=== PATIENT | male | born 1935 | race Two or more races ===

== ENCOUNTER 2021-05-16 12:08 | Inpatient (IN) | payer MEDICARE ==
[2021-05-16] MEDS ORDERED: SODIUM CHLORIDE 0.9% 500 ML 500 ML IV STA (12:48)
--- NOTE | 2021-05-16 13:03 | ED ---
General Adult HPI - General Chief complaint: Weakness Stated complaint: Weakness,Loss of appetite Time Seen by Provider: 05/16/21 12:20 Source: patient, RN notes reviewed, old records reviewed Mode of arrival: wheelchair Limitations: no limitations - History of Present Illness Initial comments: This is an 85-year-old male who presents emergency department stating that over the last 2 weeks she's becoming more and more fatigued and weaker and weaker. states she's been losing weight for about a month now. Patient's conduit primary medical care doctor and was told is liver enzymes are elevated as was his white count. Patient was put on Zithromax but he doesn't know what for. Patient continues to be weak so he came to the emergency department. Patient denies any fever chills or cough. Patient denies chest pain difficulty breathing shortness of breath per patient denies abdominal pain patient denies nausea vomiting diarrhea. Patient has history of high blood pressure. Patient states he did have a heart attack years ago and has a stent. Patient denies diabetes. She hasn't smoked in many years. - Related Data Home Medications Medication Instructions Recorded Confirmed Aspirin EC [Ecotrin Low Dose] 81 mg PO DAILY 05/16/21 05/16/21 Azithromycin [Zithromax Z-pack (6 See Taper PO DAILY 05/16/21 05/16/21 tabs)] Donepezil [Aricept] 5 mg PO BID 05/16/21 05/16/21 Enalapril/Hydrochlorothiazide 1 tab PO DAILY 05/16/21 05/16/21 [Enalapril/Hydrochlorothiazide 10-25 mg Tablet] Fluticasone Propion/Salmeterol 1 puff INHALATION RT-DAILY 05/16/21 05/16/21 [Wixela 250-50 Inhub] Memantine [Namenda] 10 mg PO BID 05/16/21 05/16/21 Montelukast [Singulair] 10 mg PO DAILY 05/16/21 05/16/21 Nitroglycerin Sl Tabs [Nitrostat] 0.4 mg SUBLINGUAL Q5M PRN 05/16/21 05/16/21 Simvastatin [Zocor] 40 mg PO HS 05/16/21 05/16/21 Vit C/E/Zn/Coppr/Lutein/Zeaxan 1 cap PO BID 05/16/21 05/16/21 [Preservision Areds 2 Softgel] Zolpidem [Ambien] 5 mg PO HS PRN 05/16/21 05/16/21 Allergies Allergy/AdvReac Type Severity Reaction Status Date / Time No Known Allergies Allergy Verified 05/16/21 13:16 Review of Systems ROS Statement: Those systems with pertinent positive or pertinent negative responses have been documented in the HPI. ROS Other: All systems not noted in ROS Statement are negative. Past Medical History Past Medical History: Asthma, Hyperlipidemia, Hypertension, Myocardial Infarction ([place]) History of Any Multi-Drug Resistant Organisms: None Reported Past Surgical History: Heart Catheterization With Stent, Joint Replacement Past Psychological History: No Psychological Hx Reported Smoking Status: Never smoker Past Alcohol Use History: Occasional Past Drug Use History: None Reported General Exam - General Exam Comments Initial Comments: GENERAL: Patient is well-developed and well-nourished. Patient is nontoxic and well- hydrated and is in no acute distress. ENT: Neck is soft and supple. No significant lymphadenopathy is noted. Oropharynx is clear. Moist mucous membranes. Neck has full range of motion without eliciting any pain. EYES: The sclera were anicteric and conjunctiva were pink and moist. Extraocular movements were intact and pupils were equal round and reactive to light. E yelids were unremarkable. PULMONARY: Unlabored respirations. Good breath sounds bilaterally. No audible rales rhonchi or wheezing was noted. CARDIOVASCULAR: There is a regular rate and rhythm without any murmurs gallops or rubs. ABDOMEN: Soft and nontender with normal bowel sounds. SKIN: Skin is clear with no lesions or rashes and otherwise unremarkable. NEUROLOGIC: Patient is alert and oriented x3. Cranial nerves II through XII are grossly intact. Motor and sensory are also intact. Normal speech, volume and content. Symmetrical smile. MUSCULOSKELETAL: Normal extremities with adequate strength and full range of motion. LYMPHATICS: No significant lymphadenopathy is noted PSYCHIATRIC: Normal psychiatric evaluation. Limitations: no limitations Course Vital Signs 05/16/21 05/16/21 05/16/21 12:22 12:47 13:00 Temperature 100.8 F H Pulse Rate 84 Respiratory 18 Rate Blood Pressure 121/63 127/87 127/87 O2 Sat by Pulse 95 90 L Oximetry 05/16/21 05/16/21 05/16/21 13:30 14:00 14:30 Temperature Pulse Rate Respiratory Rate Blood Pressure 127/87 126/65 125/60 O2 Sat by Pulse 97 94 L 93 L Oximetry Medical Decision Making - Medical Decision Making EKG shows a sinus rhythm at 81 bpm NM interval is 214 QRS is 136 QT interval 420 QTC is 487. Patient's EKG shows right bundle-branch block. Chest x-ray shows no acute abnormality. Computed tomography scan of the abdomen shows an umbilical hernia. Antibiotics were started on the patient so no source of infection could be determined. Spoke with Dr. Anderson he agreed to admit the patient admitted the patient I wrote admitting orders to continue fluids I consulted infectious disease as well as hematology. - Lab Data Result diagrams: 05/16/21 13:07 05/16/21 13:07 Lab Results 05/16/21 05/16/21 05/16/21 Range/Units 13:07 13:07 13:07 WBC 22.9 H (3.8-10.6) k/uL RBC 3.65 L (4.30-5.90) m/uL Hgb 11.1 L (13.0-17.5) gm/dL Hct 34.2 L (39.0-53.0) % MCV 93.7 (80.0-100.0) fL MCH 30.3 (25.0-35.0) pg MCHC 32.4 (31.0-37.0) g/dL RDW 12.4 (11.5-15.5) % Plt Count 395 (150-450) k/uL MPV 8.7 Neutrophils % 90 % Lymphocytes % 3 % Monocytes % 5 % Eosinophils % 2 % Basophils % 0 % Neutrophils # 20.6 H (1.3-7.7) k/uL Lymphocytes # 0.6 L (1.0-4.8) k/uL Monocytes # 1.1 H (0-1.0) k/uL Eosinophils # 0.4 (0-0.7) k/uL Basophils # 0.1 (0-0.2) k/uL PT 11.1 (9.0-12.0) sec INR 1.0 (<1.2) APTT 24.2 (22.0-30.0) sec Sodium (137-145) mmol/L Potassium (3.5-5.1) mmol/L Chloride (98-107) mmol/L Carbon Dioxide (22-30) mmol/L Anion Gap mmol/L BUN (9-20) mg/dL Creatinine (0.66-1.25) mg/dL Est GFR (CKD-EPI)AfAm (>60 ml/min/1.73 sqM) Est GFR (CKD-EPI)NonAf (>60 ml/min/1.73 sqM) Glucose (74-99) mg/dL Lactic Ac Sepsis Rflx Plasma Lactic Acid Niraj (0.7-2.0) mmol/L Calcium (8.4-10.2) mg/dL Magnesium (1.6-2.3) mg/dL Total Bilirubin (0.2-1.3) mg/dL AST (17-59) U/L ALT (4-49) U/L Alkaline Phosphatase (38-126) U/L Troponin I (0.000-0.034) ng/mL Total Protein (6.3-8.2) g/dL Albumin (3.5-5.0) g/dL TSH (0.465-4.680) mIU/L Urine Color Yellow Urine Appearance Cloudy (Clear) Urine pH 5.5 (5.0-8.0) Ur Specific [place] 1.021 (1.001-1.035) Urine Protein 1+ H (Negative) Urine Glucose (UA) Negative (Negative) Urine Ketones Negative (Negative) Urine Blood Negative (Negative) Urine Nitrite Negative (Negative) Urine Bilirubin Negative (Negative) Urine Urobilinogen <2.0 (<2.0) mg/dL Ur Leukocyte Esterase Small H (Negative) Urine RBC 1 (0-5) /hpf Urine WBC 15 H (0-5) /hpf Ur Squamous Epith Cells <1 (0-4) /hpf Urine Bacteria Rare H (None) /hpf Cellular Casts 1 (0) /lpf Hyaline Casts 7 H (0-2) /lpf Granular Casts 1 (0) /lpf Urine Mucus Rare H (None) /hpf Coronavirus (PCR) (Not Detectd) 05/16/21 05/16/21 05/16/21 Range/Units 13:07 13:07 13:07 WBC (3.8-10.6) k/uL RBC (4.30-5.90) m/uL Hgb (13.0-17.5) gm/dL Hct (39.0-53.0) % MCV (80.0-100.0) fL MCH (25.0-35.0) pg MCHC (31.0-37.0) g/dL RDW (11.5-15.5) % Plt Count (150-450) k/uL MPV Neutrophils % % Lymphocytes % % Monocytes % % Eosinophils % % Basophils % % Neutrophils # (1.3-7.7) k/uL Lymphocytes # (1.0-4.8) k/uL Monocytes # (0-1.0) k/uL Eosinophils # (0-0.7) k/uL Basophils # (0-0.2) k/uL PT (9.0-12.0) sec INR (<1.2) APTT (22.0-30.0) sec Sodium 135 L (137-145) mmol/L Potassium 4.0 (3.5-5.1) mmol/L Chloride 102 (98-107) mmol/L Carbon Dioxide 21 L (22-30) mmol/L Anion Gap 12 mmol/L BUN 41 H (9-20) mg/dL Creatinine 1.41 H (0.66-1.25) mg/dL Est GFR (CKD-EPI)AfAm 53 (>60 ml/min/1.73 sqM) Est GFR (CKD-EPI)NonAf 46 (>60 ml/min/1.73 sqM) Glucose 162 H (74-99) mg/dL Lactic Ac Sepsis Rflx Plasma Lactic Acid Niraj 3.7 H* (0.7-2.0) mmol/L Calcium 9.0 (8.4-10.2) mg/dL Magnesium 2.2 (1.6-2.3) mg/dL Total Bilirubin 1.1 (0.2-1.3) mg/dL AST 156 H (17-59) U/L ALT 195 H (4-49) U/L Alkaline Phosphatase 208 H (38-126) U/L Troponin I <0.012 (0.000-0.034) ng/mL Total Protein 6.2 L (6.3-8.2) g/dL Albumin 3.1 L (3.5-5.0) g/dL TSH 0.898 (0.465-4.680) mIU/L Urine Color Urine Appearance (Clear) Urine pH (5.0-8.0) Ur Specific [place] (1.001-1.035) Urine Protein (Negative) Urine Glucose (UA) (Negative) Urine Ketones (Negative) Urine Blood (Negative) Urine Nitrite (Negative) Urine Bilirubin (Negative) Urine Urobilinogen (<2.0) mg/dL Ur Leukocyte Esterase (Negative) Urine RBC (0-5) /hpf Urine WBC (0-5) /hpf Ur Squamous Epith Cells (0-4) /hpf Urine Bacteria (None) /hpf Cellular Casts (0) /lpf Hyaline Casts (0-2) /lpf Granular Casts (0) /lpf Urine Mucus (None) /hpf Coronavirus (PCR) (Not Detectd) 05/16/21 05/16/21 Range/Units 13:08 13:54 WBC (3.8-10.6) k/uL RBC (4.30-5.90) m/uL Hgb (13.0-17.5) gm/dL Hct (39.0-53.0) % MCV (80.0-100.0) fL MCH (25.0-35.0) pg MCHC (31.0-37.0) g/dL RDW (11.5-15.5) % Plt Count (150-450) k/uL MPV Neutrophils % % Lymphocytes % % Monocytes % % Eosinophils % % Basophils % % Neutrophils # (1.3-7.7) k/uL Lymphocytes # (1.0-4.8) k/uL Monocytes # (0-1.0) k/uL Eosinophils # (0-0.7) k/uL Basophils # (0-0.2) k/uL PT (9.0-12.0) sec INR (<1.2) APTT (22.0-30.0) sec Sodium (137-145) mmol/L Potassium (3.5-5.1) mmol/L Chloride (98-107) mmol/L Carbon Dioxide (22-30) mmol/L Anion Gap mmol/L BUN (9-20) mg/dL Creatinine (0.66-1.25) mg/dL Est GFR (CKD-EPI)AfAm (>60 ml/min/1.73 sqM) Est GFR (CKD-EPI)NonAf (>60 ml/min/1.73 sqM) Glucose (74-99) mg/dL Lactic Ac Sepsis Rflx Y Plasma Lactic Acid Niraj (0.7-2.0) mmol/L Calcium (8.4-10.2) mg/dL Magnesium (1.6-2.3) mg/dL Total Bilirubin (0.2-1.3) mg/dL AST (17-59) U/L ALT (4-49) U/L Alkaline Phosphatase (38-126) U/L Troponin I (0.000-0.034) ng/mL Total Protein (6.3-8.2) g/dL Albumin (3.5-5.0) g/dL TSH (0.465-4.680) mIU/L Urine Color Urine Appearance (Clear) Urine pH (5.0-8.0) Ur Specific [place] (1.001-1.035) Urine Protein (Negative) Urine Glucose (UA) (Negative) Urine Ketones (Negative) Urine Blood (Negative) Urine Nitrite (Negative) Urine Bilirubin (Negative) Urine Urobilinogen (<2.0) mg/dL Ur Leukocyte Esterase (Negative) Urine RBC (0-5) /hpf Urine WBC (0-5) /hpf Ur Squamous Epith Cells (0-4) /hpf Urine Bacteria (None) /hpf Cellular Casts (0) /lpf Hyaline Casts (0-2) /lpf Granular Casts (0) /lpf Urine Mucus (None) /hpf Coronavirus (PCR) Not Detected (Not Detectd) Disposition Clinical Impression: Fatigue, Leukocytosis, Fever of unknown origin, Transaminitis, Weight loss Disposition: ADMITTED IP TO THIS HOSP Referrals: Gisselle Grimm DO [Primary Care Provider] - 1-2 days Time of Disposition: 15:53
[2021-05-16 13:27] LABS: Basophils # (A) 0.1 k/uL (0-0.2); Basophils % (A) 0 %; Eosinophils # (A) 0.4 k/uL (0-0.7); Eosinophils % (A) 2 %; HCT 34.2 % (39.0-53.0); HGB 11.1 gm/dL (13.0-17.5); Lymphocytes # (A) 0.6 k/uL (1.0-4.8); Lymphocytes % (A) 3 %; MCH 30.3 pg (25.0-35.0); MCHC 32.4 g/dL (31.0-37.0); MCV 93.7 fL (80.0-100.0); Mean Platelet Volume 8.7; Monocytes # (A) 1.1 k/uL (0-1.0); Monocytes % (A) 5 %; Neutrophils # (A) 20.6 k/uL (1.3-7.7); Neutrophils % (A) 90 %; Platelet Count 395 k/uL (150-450); RBC 3.65 m/uL (4.30-5.90); RDW 12.4 % (11.5-15.5); WBC 22.9 k/uL (3.8-10.6)
--- NOTE | 2021-05-16 13:31 | XR ---
EXAMINATION TYPE: XR chest 2V DATE OF EXAM: 05/16/2021 COMPARISON: NONE HISTORY: Weakness. TECHNIQUE: Frontal and lateral views of the chest are obtained. FINDINGS: There is no focal air space opacity, pleural effusion, or pneumothorax seen. The cardiac silhouette size is within normal limits. The osseous structures are intact. Overlying EKG leads. IMPRESSION: No acute cardiopulmonary process.
[2021-05-16 13:37] LABS: Partial Thromboplastin Time 24.2 sec (22.0-30.0); Prothrombin Time 11.1 sec (9.0-12.0)
[2021-05-16 13:49] LABS: Albumin 3.1 g/dL (3.5-5.0); Magnesium 2.2 mg/dL (1.6-2.3); Total Bilirubin 1.1 mg/dL (0.2-1.3); Total Protein 6.2 g/dL (6.3-8.2)
[2021-05-16 13:52] LABS: Appearance,Urine Cloudy (Clear); Bacteria,Urine Rare /hpf; Bilirubin,Urine Negative (Negative); Blood,Urine Negative (Negative); Cellular Casts,Urine 1 /lpf (0); Color,Urine Yellow; Glucose,Urine (UA) Negative (Negative); Granular Casts,Urine 1 /lpf (0); Hyaline Casts,Urine 7 /lpf (0-2); Ketones,Urine Negative (Negative); Leukocyte Esterase,Urine Small (Negative); Mucus,Urine Rare /hpf; Nitrite,Urine Negative (Negative); PH, Urine 5.5 (5.0-8.0); Protein,Urine 1+ (Negative); RBC,Urine 1 /hpf (0-5); Specific Gravity,Urine 1.021 (1.001-1.035); Squamous Epithelial Cell,Urine <1 /hpf (0-4); Urobilinogen,Urine <2.0 mg/dL (<2.0); WBC,Urine 15 /hpf (0-5)
[2021-05-16] MEDS ORDERED: IBUPROFEN 600 MG TAB PO STA (14:38)
--- NOTE | 2021-05-16 15:29 | CT ---
EXAMINATION TYPE: CT abdomen pelvis w con DATE OF EXAM: 05/16/2021 COMPARISON: NONE HISTORY: 85-year-old male Generalized abdominal pain with fever. TECHNIQUE: Contiguous axial scanning of the abdomen and pelvis following administration of 80 ml Isov ue 300 IV contrast. Delayed images through the kidneys and coronal/sagittal reconstructions performe d. CT DLP: 1290.9 mGycm Automated exposure control for dose reduction was used. FINDINGS: Heart normal size without pericardial effusion. Three-vessel coronary artery calcifications are prese nt. Lung bases clear without pleural effusion. No focal liver lesion or biliary ductal dilatation. Portal venous system is patent. Gallbladder, spleen, and pancreas within normal limits. Mild thickening of the bilateral adrenal glands without discrete nodularity. There is symmetric uptake of contrast from the kidneys but no excretion on delayed kidney images. 1 c m cortical hypodensity posterolateral mid right kidney too small for accurate CT characterization, li anthony cyst. Mild atherosclerotic calcifications infrarenal abdominal aorta and iliac arteries. No dilated small bowel, free fluid, or free air. No mesenteric or retroperitoneal lymphadenopathy. Mild stool burden. Left-sided colonic diverticulosis. Redundant sigmoid colon. No pericolonic inflamm atory change. There is a moderate-sized fat-containing umbilical hernia measuring 6.2 x 6.0 cm. Mild fat stranding is present here. The abdominal wall defect measures 2.3 cm wide. No abnormal fluid here. Mild to moderate circumference of bladder wall thickening. Prostate gland measures 4.9 cm wide. There is some nodular enhancement along the left posterior peripheral zone, axial image 82. Small pelvic p hleboliths. No abnormal fluid collection in the pelvis or pelvic lymphadenopathy. Bones: Moderate degenerative change of the hips. Degenerative bony ankylosis right SI joint. Advanced spondylotic changes throughout the lumbar spine. Addition the visualized lower thoracic spin e. IMPRESSION: 1. A MODERATE SIZED FAT-CONTAINING UMBILICAL HERNIA MEASURING 6.2 CM. THERE IS MILD FAT STRANDING WIT HIN THE HERNIA SAC THAT COULD REPRESENT PROMINENT OMENTAL/MESENTERIC VESSELS. MILD INFLAMMATION DIFFI CULT TO EXCLUDE. CORRELATE FOR ANY FOCAL PAIN HERE. 2. DELAYED EXCRETION OF CONTRAST FROM THE KIDNEYS. ASSESS FOR RUBY WITH BUN/CREATININE. 3. LEFT-SIDED COLONIC DIVERTICULOSIS WITHOUT ACUTE DIVERTICULITIS. 4. MILD TO MODERATE CIRCUMFERENTIAL BLADDER WALL THICKENING COULD REPRESENT CHRONIC BLADDER WALL HYPE RTROPHY VERSUS CYSTITIS. 5. THERE IS MILD PROSTATOMEGALY OF 4.9 CM WIDE. SOME NODULAR ENHANCEMENT IS SEEN ALONG THE LEFT POSTE RIOR PERIPHERAL ZONE THAT COULD RELATE TO CHANGES OF BPH. CORRELATE WITH PSA VALUES to exclude a smal l FOCUS OF PROSTATE CANCER. 6. CAD WITH 3 VESSEL CORONARY ARTERY CALCIFICATIONS.
[2021-05-16] MEDS ORDERED: SODIUM CHLORIDE 0.9% 1,000 ML IV ONE (15:54)
[2021-05-16] MEDS ORDERED: NITROGLYCERIN SL TABS 0.4 MG TAB SUBLINGUAL PRN (20:12)
[2021-05-16] MEDS ORDERED: IPRATROPIUM-ALBUTEROL 3 ML NEB INHALATION PRN (21:16)
--- NOTE | 2021-05-16 21:16 | P.HPIM ---
History of Present Illness H&P Date: 05/16/21 Chief Complaint: Generalized weakness Patient is a 85-year-old male with a known history of hypertension, hyperlipidemia, coronary artery disease history of stent placement, asthma, previous history of smoking and dementia/memory impairment was brought to the hospital by his . Patient was brought to the hospital due to generalized weakness fatigue and loss of weight for the past 2 weeks. As per his patient has been losing weight for about a month now. He was seen by his primary care physician and was found to have elevated liver enzymes and leukocytosis. Patient was started on empiric antibiotics in the form of Zithromax. Patient continues to be so he was brought to the hospital. Otherwise patient does not have any fever or chills. No cough or sputum production. No complaints of chest pain or shortness of breath. No abdominal pain. No nausea vomiting or diarrhea. Denies any loss of appetite. On admission T-max 100.2, blood pressure 121/63 pulse is 84 respiration 18 and pulse ox 95% on room air. Laboratory data showed WBC 22.9 hemoglobin 11.1 and platelets 325 lymphocytes 0.6 Coronavirus PCR not detected Sodium 135 potassium 4.0 chloride 102 bicarb is 21 BUN 41 and creatinine 1.41 lactic acid 3.7 AST 156 ALT 195 and alk phos 208 TSH 0.898 Urinalysis showed 1+ protein small leukocyte esterase and elevated WBCs. Chest x-ray showed no acute cardiopulmonary process CT of the abdomen pelvis showed moderate-sized fat-containing umbilical hernia measuring 6.2 cm there is mild fat stranding within the hernia sac that could represent prominent omental mesenteric vessels. Mild inflammation difficult to exclude. Delayed excretion of contrast from the kidneys. Left-sided colonic diverticulosis without acute diverticulitis. Mild to moderate circumferential bladder wall thickening could represent chronic bladder wall hypertrophy versus cystitis. There is prostatomegaly correlate her PSA level. EKG showed sinus rhythm with first-degree AV block. Review of Systems Review of systems could not be obtained from the patient. Past Medical History Past Medical History: Asthma, Hyperlipidemia, Hypertension, Myocardial Infarction ([place]) Last Myocardial Infarction Date:: 1999 History of Any Multi-Drug Resistant Organisms: None Reported Past Surgical History: Heart Catheterization With Stent, Joint Replacement Additional Past Surgical History / Comment(s): knee replacement, left wrist surgery 2019 Date of Last Stent Placement:: 1999 Past Psychological History: No Psychological Hx Reported Additional Psychological History / Comment(s): Memory impairment Smoking Status: Former smoker Past Alcohol Use History: Occasional Past Drug Use History: None Reported - Past Family History Father Family Medical History: Memory Impairment Mother Additional Family Medical History / Comment(s): Kidney cancer - at age 36 Medications and Allergies Home Medications Medication Instructions Recorded Confirmed Type Aspirin EC [Ecotrin Low Dose] 81 mg PO DAILY 05/16/21 05/16/21 History Azithromycin [Zithromax Z-pack (6 See Taper PO DAILY 05/16/21 05/16/21 History tabs)] Donepezil [Aricept] 5 mg PO BID 05/16/21 05/16/21 History Enalapril/Hydrochlorothiazide 1 tab PO DAILY 05/16/21 05/16/21 History [Enalapril/Hydrochlorothiazide 10-25 mg Tablet] Fluticasone Propion/Salmeterol 1 puff INHALATION RT-DAILY 05/16/21 05/16/21 History [Wixela 250-50 Inhub] Memantine [Namenda] 10 mg PO BID 05/16/21 05/16/21 History Montelukast [Singulair] 10 mg PO DAILY 05/16/21 05/16/21 History Nitroglycerin Sl Tabs [Nitrostat] 0.4 mg SUBLINGUAL Q5M PRN 05/16/21 05/16/21 History Simvastatin [Zocor] 40 mg PO HS 05/16/21 05/16/21 History Vit C/E/Zn/Coppr/Lutein/Zeaxan 1 cap PO BID 05/16/21 05/16/21 History [Preservision Areds 2 Softgel] Zolpidem [Ambien] 5 mg PO HS PRN 05/16/21 05/16/21 History Allergies Allergy/AdvReac Type Severity Reaction Status Date / Time No Known Allergies Allergy Verified 05/16/21 13:16 Physical Exam Vitals: Vital Signs Temp Pulse Pulse Resp BP BP BP 05/16/21 19:45 98.1 F 64 20 97/58 05/16/21 18:38 97.9 F 68 17 110/68 05/16/21 16:54 99.9 F H 82 17 115/60 05/16/21 15:58 100.2 F H 64 20 104/62 11/05/21 14:30 125/60 05/16/21 14:00 126/65 05/16/21 13:30 127/87 05/16/21 13:00 127/87 05/16/21 12:47 127/87 05/16/21 12:22 100.8 F H 84 18 121/63 Pulse Ox 05/16/21 19:45 98 05/16/21 18:38 98 05/16/21 16:54 94 L 05/16/21 15:58 96 05/16/21 14:30 93 L 05/16/21 14:00 94 L 05/16/21 13:30 97 05/16/21 13:00 05/16/21 12:47 90 L 05/16/21 12:22 95 Intake and Output 05/16/21 05/16/21 05/16/21 06:59 14:59 22:59 Other: Weight 94.801 kg 94.801 kg PHYSICAL EXAMINATION: Patient is lying in the bed comfortably, no acute distress, awake alert and oriented x1.. HEENT: Normocephalic. Neck is supple. Pupils reactive. Nostrils clear. Oral cavi ty is moist. Neck reveals no JVD, carotid bruits, or thyromegaly. CHEST EXAMINATION: Trachea is central. Symmetrical expansion. Bibasilar diminished sounds. No rhonchi or wheezing.. CARDIAC: Normal S1, S2 with no gallops. No murmurs ABDOMEN: Soft. Bowel sounds normal. No organomegaly. No abdominal bruits. Extremities: reveal no edema. No clubbing or cyanosis Neurologically awake, alert, oriented x1-2 ..Able to move extremities while in bed. No gross focal deficits noted Skin: No rash or skin lesions. Psychiatric: Cooperative. Musculoskeletal: No joint swelling or deformity. Normal range of motion. Results CBC & Chem 7: 05/16/21 13:07 05/16/21 13:07 Labs: Abnormal Lab Results - Last 24 Hours (Table) 05/16/21 05/16/21 05/16/21 Range/Units 13:07 13:07 13:07 WBC 22.9 H (3.8-10.6) k/uL RBC 3.65 L (4.30-5.90) m/uL Hgb 11.1 L (13.0-17.5) gm/dL Hct 34.2 L (39.0-53.0) % Neutrophils # 20.6 H (1.3-7.7) k/uL Lymphocytes # 0.6 L (1.0-4.8) k/uL Monocytes # 1.1 H (0-1.0) k/uL Sodium 135 L (137-145) mmol/L Carbon Dioxide 21 L (22-30) mmol/L BUN 41 H (9-20) mg/dL Creatinine 1.41 H (0.66-1.25) mg/dL Glucose 162 H (74-99) mg/dL Plasma Lactic Acid Niraj (0.7-2.0) mmol/L AST 156 H (17-59) U/L ALT 195 H (4-49) U/L Alkaline Phosphatase 208 H (38-126) U/L Total Protein 6.2 L (6.3-8.2) g/dL Albumin 3.1 L (3.5-5.0) g/dL Urine Protein 1+ H (Negative) Ur Leukocyte Esterase Small H (Negative) Urine WBC 15 H (0-5) /hpf Urine Bacteria Rare H (None) /hpf Hyaline Casts 7 H (0-2) /lpf Urine Mucus Rare H (None) /hpf 05/16/21 Range/Units 13:07 WBC (3.8-10.6) k/uL RBC (4.30-5.90) m/uL Hgb (13.0-17.5) gm/dL Hct (39.0-53.0) % Neutrophils # (1.3-7.7) k/uL Lymphocytes # (1.0-4.8) k/uL Monocytes # (0-1.0) k/uL Sodium (137-145) mmol/L Carbon Dioxide (22-30) mmol/L BUN (9-20) mg/dL Creatinine (0.66-1.25) mg/dL Glucose (74-99) mg/dL Plasma Lactic Acid Niraj 3.7 H* (0.7-2.0) mmol/L AST (17-59) U/L ALT (4-49) U/L Alkaline Phosphatase (38-126) U/L Total Protein (6.3-8.2) g/dL Albumin (3.5-5.0) g/dL Urine Protein (Negative) Ur Leukocyte Esterase (Negative) Urine WBC (0-5) /hpf Urine Bacteria (None) /hpf Hyaline Casts (0-2) /lpf Urine Mucus (None) /hpf Microbiology - Last 24 Hours (Table) 05/16/21 13:07 Urine Culture - Preliminary Urine,Clean Catch Thrombosis Risk Factor Assmnt - DVT/VTE Prophylaxis DVT/VTE Prophylaxis: Pharmacologic Prophylaxis ordered - Choose All That Apply Any of the Below Risk Factors Present?: Yes Each Risk Factor Represents 3 Points: Age 75 years or older Thrombosis Risk Factor Assessment Total Risk Factor Score: 3 Thrombosis Risk Factor Assessment Level: Moderate Risk Assessment and Plan Assessment: SIRS/leukocytosis, fever lactic acidosis without definite evidence of infection.. Possible acute urinary tract infection Generalized weakness fatigue and weight loss. Lactic acidosis likely due to dehydration volume depletion Acute kidney injury likely prerenal Hypovolemic hyponatremia Elevated liver enzymes Mild protein calorie malnutrition Hypertension Hyperlipidemia Coronary artery disease history of stent placement Hyperlipidemia History of [place] Previous history of smoking DVT prophylaxis with heparin subcu Plan: Patient will be continued on gentle IV hydration and antibiotics in the form of ceftriaxone. Follow-up urine culture and blood culture report. Follow-up inflammatory markers. COVID-19 test is negative. Continue with duo nebs and follow-up closely. ID and oncology was consulted. Prognosis guarded at this time. Time with Patient: Greater than 30
[2021-05-16] MEDS: MEMANTINE 10 MG TAB PO SCH (21:48)
[2021-05-16] MEDS: DONEPEZIL 5 MG TAB PO SCH (21:48)
[2021-05-16] MEDS: SODIUM CHLORIDE 0.9% 1,000 ML IV SCH (21:49)
[2021-05-16] MEDS: HEPARIN SODIUM,PORCINE/PF 5,000 UNIT/0.5 ML SYRINGE SQ SCH (21:50)
[2021-05-16] MEDS: FAMOTIDINE 20 MG/2 ML VIAL IV SCH (21:50)
[2021-05-17 07:17] LABS: Basophils # (A) 0.1 k/uL (0-0.2); Basophils % (A) 0 %; Eosinophils # (A) 0.8 k/uL (0-0.7); Eosinophils % (A) 5 %; HCT 31.7 % (39.0-53.0); HGB 10.2 gm/dL (13.0-17.5); Lymphocytes # (A) 1.3 k/uL (1.0-4.8); Lymphocytes % (A) 8 %; MCH 30.3 pg (25.0-35.0); MCHC 32.1 g/dL (31.0-37.0); MCV 94.3 fL (80.0-100.0); Monocytes % (A) 6 %; Neutrophils # (A) 12.9 k/uL (1.3-7.7); Neutrophils % (A) 80 %; Platelet Count 361 k/uL (150-450); RBC 3.36 m/uL (4.30-5.90); RDW 12.5 % (11.5-15.5); WBC 16.2 k/uL (3.8-10.6)
[2021-05-17] MEDS: SODIUM CHLORIDE 0.9% 1,000 ML IV SCH ×2 (09:21→18:07)
[2021-05-17] MEDS: ASPIRIN 81 MG PO SCH (09:21)
[2021-05-17] MEDS: MONTELUKAST 10 MG TAB PO SCH (09:21)
[2021-05-17] MEDS: MEMANTINE 10 MG TAB PO SCH ×2 (09:21→21:02)
[2021-05-17] MEDS: FAMOTIDINE 20 MG/2 ML VIAL IV SCH ×2 (09:22→21:19)
[2021-05-17] MEDS: DONEPEZIL 5 MG TAB PO SCH ×2 (09:22→21:02)
[2021-05-17] MEDS: HEPARIN SODIUM,PORCINE/PF 5,000 UNIT/0.5 ML SYRINGE SQ SCH ×2 (09:25→21:19)
[2021-05-17 11:22] LABS: Reticulocyte % 1.3 % (0.5-2.0)
--- NOTE | 2021-05-17 11:32 | P.CONS ---
History of Present Illness - Reason for Consult Consult date: 05/16/21 FUO Requesting physician: Kenny Carter - Chief Complaint weakness x few days - History of Present Illness History of present illness : Patient is 85-year-old male was brought into the ER this afternoon for evaluation of fatigue and the patient getting weaker and weaker apparently patient also losing weight patient has been evaluated by his primary care physician apparently was noticed to have elevated liver enzymes and white count at the patient has been treated with Zithromax however did not have any improvement subsequent the patient has been brought to the ER for further evaluation patient main symptom has been feeling weak and tired and did not have any energy patient denies having any chest pain shortness of breath minimal cough not bringing up any sputum no nausea no vomiting no abdominal pain or diarrhea on presentation to the hospital but did have a fever 100.8 F patient did have white count of 22.9 with a left shift BUN/creatinine was mildly elevated liver enzymes are mildly elevated urine was mildly positive dinero PCR was negative patient did have a chest x-ray which was negative for acute cardiopulmonary process patient also have a CT of abdominal pelvis did show some bladder wall thickening question of cystitis prostate was enlarged diverticulosis and umbilical hernia patient was started on Rocephin has been admitted to hospital infectious disease was consulted for further management Review of system: CONSTITUTIONAL: Positive for weakness along with the fever. EYES: No complaint. ENT: No complaint. RESPIRATORY: As per history of present illness. CARDIOVASCULAR: No complaint. GENITOURINARY as per history of present illness. GASTROINTESTINAL: No complaint. MUSCULOSKELETAL: No complaint. INTEGUMENTARY: No complaint. PSYCHOLOGIC: No complaint. ENDOCRINE: No complaint. NEUROLOGIC: No complaint. Past medical history : Reviewed, documented below Past surgical history : Reviewed, documented below Social history: Reviewed, documented below Medications: Reviewed, as documented below EXAMINATION: Vital sigans= Reviewed and documented below GENERAL DESCRIPTION: Elderly male lying in bed, no distress. No tachypnea or accessory muscle of respiration use. HEENT: Shows Pallor , no scleral icterus. Oral mucous membrane is dry. NECK: Trachea central, no thyromegaly. LUNGS: Unlabored breathing. Clear to auscultation anteriorly. No wheeze or crackle. HEART: S1, S2, regular rate and rhythm. ABDOMEN: Soft, no tenderness , guarding or rigidity EXTREMITIES: No edema of feet. SKIN: No rash, no masses palpable. NEUROLOGICAL: The patient is awake, alert, oriented x3, mood and affect normal. LABS AND RADIOLOGY: Reviewed results see below Assessment : Patient is 85-year-old male presenting to the hospital for weakness and did have a low-grade fever did have mildly positive UA abnormal CT abdominal pelvis with evidence of cystitis and did have enlarged prostate could be likely secondary to urinary source as currently do not have any other obvious focus of infection his lungs were clear to auscultation no evidence of any cellulitis and abdominal was soft Plan: 1-Rocephin 2 g IV bag daily 2-gentle IV fluid We will follow on clinical condition and cultures to further adjust medication if needed Thank you for this consultation we will follow the patient along with you Past Medical History Past Medical History: Asthma, Hyperlipidemia, Hypertension, Myocardial Infarction ([place]) History of Any Multi-Drug Resistant Organisms: None Reported Past Surgical History: Heart Catheterization With Stent, Joint Replacement Past Psychological History: No Psychological Hx Reported Smoking Status: Never smoker Past Alcohol Use History: Occasional Past Drug Use History: None Reported - Past Family History Father Family Medical History: Memory Impairment Mother Additional Family Medical History / Comment(s): Kidney cancer - at age 36 Medications and Allergies Home Medications Medication Instructions Recorded Confirmed Type Aspirin EC [Ecotrin Low Dose] 81 mg PO DAILY 05/16/21 05/16/21 History Azithromycin [Zithromax Z-pack (6 See Taper PO DAILY 05/16/21 05/16/21 History tabs)] Donepezil [Aricept] 5 mg PO BID 05/16/21 05/16/21 History Enalapril/Hydrochlorothiazide 1 tab PO DAILY 05/16/21 05/16/21 History [Enalapril/Hydrochlorothiazide 10-25 mg Tablet] Fluticasone Propion/Salmeterol 1 puff INHALATION RT-DAILY 05/16/21 05/16/21 History [Wixela 250-50 Inhub] Memantine [Namenda] 10 mg PO BID 05/16/21 05/16/21 History Montelukast [Singulair] 10 mg PO DAILY 05/16/21 05/16/21 History Nitroglycerin Sl Tabs [Nitrostat] 0.4 mg SUBLINGUAL Q5M PRN 05/16/21 05/16/21 History Simvastatin [Zocor] 40 mg PO HS 05/16/21 05/16/21 History Vit C/E/Zn/Coppr/Lutein/Zeaxan 1 cap PO BID 05/16/21 05/16/21 History [Preservision Areds 2 Softgel] Zolpidem [Ambien] 5 mg PO HS PRN 05/16/21 05/16/21 History Allergies Allergy/AdvReac Type Severity Reaction Status Date / Time No Known Allergies Allergy Verified 05/16/21 13:16 Physical Exam Vitals: Vital Signs Temp Pulse Resp BP Pulse Ox 05/16/21 15:58 100.2 F H 64 20 104/62 96 05/16/21 14:30 125/60 93 L 05/16/21 14:00 126/65 94 L 05/16/21 13:30 127/87 97 05/16/21 13:00 127/87 05/16/21 12:47 127/87 90 L 05/16/21 12:22 100.8 F H 84 18 121/63 95 Intake and Output 05/16/21 05/16/21 05/16/21 06:59 14:59 22:59 Other: Weight 94.801 kg Results CBC & Chem 7: 05/17/21 06:58 05/16/21 13:07 Labs: Abnormal Lab Results - Last 24 Hours (Table) 05/16/21 05/16/21 05/16/21 Range/Units 13:07 13:07 13:07 WBC 22.9 H (3.8-10.6) k/uL RBC 3.65 L (4.30-5.90) m/uL Hgb 11.1 L (13.0-17.5) gm/dL Hct 34.2 L (39.0-53.0) % Neutrophils # 20.6 H (1.3-7.7) k/uL Lymphocytes # 0.6 L (1.0-4.8) k/uL Monocytes # 1.1 H (0-1.0) k/uL Sodium 135 L (137-145) mmol/L Carbon Dioxide 21 L (22-30) mmol/L BUN 41 H (9-20) mg/dL Creatinine 1.41 H (0.66-1.25) mg/dL Glucose 162 H (74-99) mg/dL Plasma Lactic Acid Niraj (0.7-2.0) mmol/L AST 156 H (17-59) U/L ALT 195 H (4-49) U/L Alkaline Phosphatase 208 H (38-126) U/L Total Protein 6.2 L (6.3-8.2) g/dL Albumin 3.1 L (3.5-5.0) g/dL Urine Protein 1+ H (Negative) Ur Leukocyte Esterase Small H (Negative) Urine WBC 15 H (0-5) /hpf Urine Bacteria Rare H (None) /hpf Hyaline Casts 7 H (0-2) /lpf Urine Mucus Rare H (None) /hpf 05/16/21 Range/Units 13:07 WBC (3.8-10.6) k/uL RBC (4.30-5.90) m/uL Hgb (13.0-17.5) gm/dL Hct (39.0-53.0) % Neutrophils # (1.3-7.7) k/uL Lymphocytes # (1.0-4.8) k/uL Monocytes # (0-1.0) k/uL Sodium (137-145) mmol/L Carbon Dioxide (22-30) mmol/L BUN (9-20) mg/dL Creatinine (0.66-1.25) mg/dL Glucose (74-99) mg/dL Plasma Lactic Acid Niraj 3.7 H* (0.7-2.0) mmol/L AST (17-59) U/L ALT (4-49) U/L Alkaline Phosphatase (38-126) U/L Total Protein (6.3-8.2) g/dL Albumin (3.5-5.0) g/dL Urine Protein (Negative) Ur Leukocyte Esterase (Negative) Urine WBC (0-5) /hpf Urine Bacteria (None) /hpf Hyaline Casts (0-2) /lpf Urine Mucus (None) /hpf
[2021-05-17 11:48] VITALS: BMI 31.7
[2021-05-17 13:36] LABS: Hepatitis A Antibody IgM Nonreactive (Nonreactive); Hepatitis B Core IgM Nonreactive (Nonreactive); Hepatitis B Surface Antigen Nonreactive (Nonreactive); Hepatitis C IgG Antibody Nonreactive (Nonreactive)
[2021-05-17 15:32] LABS: African American GFR (CKD) 49.2 (60.0-200.0); Albumin 2.9 g/dL (3.8-4.9); Albumin/Globulin Ratio 1.21 (1.60-3.17); Anion Gap 13.5 mmol/L (4.00-12.00); BUN/Creat Ratio 26.07 Ratio (12.00-20.00); Blood Urea Nitrogen 39.1 mg/dL (9.0-27.0); Calcium 8.3 mg/dL (8.7-10.3); Carbon Dioxide 22.5 mmol/L (21.6-31.8); Globulin 2.4 g/dL (1.6-3.3); Non-African American GFR(CKD) 42.4 (60.0-200.0); Potassium 3.9 mmol/L (3.5-5.5); Total Bilirubin 0.3 mg/dL (0.30-1.20); Total Protein 5.3 g/dL (6.2-8.2)
[2021-05-17 19:15] LABS: % Iron Saturation 26.65 (15.00-50.00); Magnesium 2.3 mg/dL (1.5-2.4)
--- NOTE | 2021-05-17 19:18 | PN ---
PROGRESS NOTE DATE OF SERVICE: 05/17/2021 REASON FOR FOLLOWUP: Fever, possible urinary tract infection. INTERVAL HISTORY: The patient is afebrile today. The patient has been complaining of some irritation to the rectal area. He did have hard bowel movement. The patient denies having any chest pain. No shortness of breath or cough. No vomiting. No abdominal pain. PHYSICAL EXAMINATION: Blood pressure 129/72 with a pulse of 65, temperature 98.3. He is 95% on room air. General description is an elderly male lying in bed in no distress. Respiratory system: Unlabored breathing, decreased breath sounds at the base. No wheeze. Heart S1, S2. Regular rate and rhythm. Abdomen soft, no tenderness. LABS: Hemoglobin is 10.2, white count down to 16.2, creatinine is 1.5. Cultures are currently pending. DIAGNOSTIC IMPRESSION AND PLAN: Patient with fever, concerning for possible urinary tract infection versus cholangitis. Cultures are currently pending. Patient responding to the Rocephin that should continue while waiting for the culture to finalize and monitor clinical course closely. MMODL / IJN: [id number] /
[2021-05-17 21:20] LABS: Protein, Total 5.1 g/dL (6.2-8.2)
[2021-05-18] MEDS: SODIUM CHLORIDE 0.9% 1,000 ML IV SCH (01:19)
[2021-05-18] MEDS: MONTELUKAST 10 MG TAB PO SCH (07:56)
[2021-05-18] MEDS: HEPARIN SODIUM,PORCINE/PF 5,000 UNIT/0.5 ML SYRINGE SQ SCH ×2 (07:56→21:29)
[2021-05-18] MEDS: FAMOTIDINE 20 MG TAB PO SCH ×2 (07:56→21:28)
[2021-05-18] MEDS: ASPIRIN 81 MG PO SCH (07:56)
[2021-05-18] MEDS: DONEPEZIL 5 MG TAB PO SCH ×2 (07:57→21:29)
[2021-05-18] MEDS: MEMANTINE 10 MG TAB PO SCH ×2 (07:57→21:29)
[2021-05-18 10:57] LABS: Magnesium 2.2 mg/dL (1.5-2.4)
[2021-05-18 11:05] LABS: African American GFR (CKD) 58.5 (60.0-200.0); Albumin 2.8 g/dL (3.8-4.9); Albumin/Globulin Ratio 1.22 (1.60-3.17); Anion Gap 11.5 mmol/L (4.00-12.00); BUN/Creat Ratio 21.77 Ratio (12.00-20.00); Blood Urea Nitrogen 28.3 mg/dL (9.0-27.0); Calcium 8.4 mg/dL (8.7-10.3); Carbon Dioxide 22.5 mmol/L (21.6-31.8); Globulin 2.3 g/dL (1.6-3.3); Non-African American GFR(CKD) 50.5 (60.0-200.0); Potassium 4.5 mmol/L (3.5-5.5); Total Bilirubin 0.5 mg/dL (0.30-1.20); Total Protein 5.1 g/dL (6.2-8.2)
--- NOTE | 2021-05-18 19:57 | P.CONS ---
History of Present Illness - Reason for Consult Consult date: 05/17/21 Leukocytosis and Anemia Requesting physician: Kenny Carter - History of Present Illness Mr. Chaves is an 85 year old male who has multiple co-morbidies. He presents with fever, leukocytosis and anemia therefore we have been asked to further evaluate. Negative PCR COvid, Chest xray without any acute cardiopulmonary etiology. CT abdomen/Pelvis with some bladder wall thickening, ?cystitis. Infe ctious disease is following. Review of Systems All systems: negative Constitutional: Reports as per HPI Past Medical History Past Medical History: Asthma, Hyperlipidemia, Hypertension, Myocardial Infarction ([place]) Last Myocardial Infarction Date:: 1999 History of Any Multi-Drug Resistant Organisms: None Reported Past Surgical History: Heart Catheterization With Stent, Joint Replacement Additional Past Surgical History / Comment(s): knee replacement, left wrist surgery 2019 Date of Last Stent Placement:: 1999 Past Psychological History: No Psychological Hx Reported Additional Psychological History / Comment(s): Memory impairment Smoking Status: Former smoker Past Alcohol Use History: Occasional Past Drug Use History: None Reported - Past Family History Father Family Medical History: Memory Impairment Mother Additional Family Medical History / Comment(s): Kidney cancer - at age 36 Medications and Allergies Home Medications Medication Instructions Recorded Confirmed Type Aspirin EC [Ecotrin Low Dose] 81 mg PO DAILY 05/16/21 05/16/21 History Azithromycin [Zithromax Z-pack (6 See Taper PO DAILY 05/16/21 05/16/21 History tabs)] Donepezil [Aricept] 5 mg PO BID 05/16/21 05/16/21 History Enalapril/Hydrochlorothiazide 1 tab PO DAILY 05/16/21 05/16/21 History [Enalapril/Hydrochlorothiazide 10-25 mg Tablet] Fluticasone Propion/Salmeterol 1 puff INHALATION RT-DAILY 05/16/21 05/16/21 History [Wixela 250-50 Inhub] Memantine [Namenda] 10 mg PO BID 05/16/21 05/16/21 History Montelukast [Singulair] 10 mg PO DAILY 05/16/21 05/16/21 History Nitroglycerin Sl Tabs [Nitrostat] 0.4 mg SUBLINGUAL Q5M PRN 05/16/21 05/16/21 History Simvastatin [Zocor] 40 mg PO HS 05/16/21 05/16/21 History Vit C/E/Zn/Coppr/Lutein/Zeaxan 1 cap PO BID 05/16/21 05/16/21 History [Preservision Areds 2 Softgel] Zolpidem [Ambien] 5 mg PO HS PRN 05/16/21 05/16/21 History Allergies Allergy/AdvReac Type Severity Reaction Status Date / Time No Known Allergies Allergy Verified 05/16/21 13:16 Physical Exam Vitals: Vital Signs Temp Pulse Pulse Resp BP BP BP 05/16/21 19:45 98.1 F 64 20 97/58 05/16/21 18:38 97.9 F 68 17 110/68 05/16/21 16:54 99.9 F H 82 17 115/60 05/16/21 15:58 100.2 F H 64 20 104/62 05/16/21 14:30 125/60 05/16/21 14:00 126/65 05/16/21 13:30 127/87 05/16/21 13:00 127/87 05/16/21 12:47 127/87 05/16/21 12:22 100.8 F H 84 18 121/63 Pulse Ox 05/16/21 19:45 98 05/16/21 18:38 98 05/16/21 16:54 94 L 05/16/21 15:58 96 05/16/21 14:30 93 L 05/16/21 14:00 94 L 05/16/21 13:30 97 05/16/21 13:00 05/16/21 12:47 90 L 05/16/21 12:22 95 Intake and Output 05/16/21 05/16/21 05/16/21 06:59 14:59 22:59 Other: Weight 94.801 kg 94.801 kg - Constitutional General appearance: cooperative, no acute distress - EENT Eyes: EOMI ENT: hard of hearing - Neck Neck: normal ROM - Respiratory Respiratory: bilateral: diminished - Cardiovascular Rhythm: regularly irregular - Gastrointestinal General gastrointestinal: soft - Integumentary Integumentary: pale - Musculoskeletal Musculoskeletal: generalized weakness - Psychiatric poor historian Results CBC & Chem 7: 05/17/21 06:58 05/17/21 06:58 Labs: Abnormal Lab Results - Last 24 Hours (Table) 05/16/21 05/16/21 05/16/21 Range/Units 13:07 13:07 13:07 WBC 22.9 H (3.8-10.6) k/uL RBC 3.65 L (4.30-5.90) m/uL Hgb 11.1 L (13.0-17.5) gm/dL Hct 34.2 L (39.0-53.0) % Neutrophils # 20.6 H (1.3-7.7) k/uL Lymphocytes # 0.6 L (1.0-4.8) k/uL Monocytes # 1.1 H (0-1.0) k/uL Sodium 135 L (137-145) mmol/L Carbon Dioxide 21 L (22-30) mmol/L BUN 41 H (9-20) mg/dL Creatinine 1.41 H (0.66-1.25) mg/dL Glucose 162 H (74-99) mg/dL Plasma Lactic Acid Niraj (0.7-2.0) mmol/L AST 156 H (17-59) U/L ALT 195 H (4-49) U/L Alkaline Phosphatase 208 H (38-126) U/L Total Protein 6.2 L (6.3-8.2) g/dL Albumin 3.1 L (3.5-5.0) g/dL Urine Protein 1+ H (Negative) Ur Leukocyte Esterase Small H (Negative) Urine WBC 15 H (0-5) /hpf Urine Bacteria Rare H (None) /hpf Hyaline Casts 7 H (0-2) /lpf Urine Mucus Rare H (None) /hpf 05/16/21 Range/Units 13:07 WBC (3.8-10.6) k/uL RBC (4.30-5.90) m/uL Hgb (13.0-17.5) gm/dL Hct (39.0-53.0) % Neutrophils # (1.3-7.7) k/uL Lymphocytes # (1.0-4.8) k/uL Monocytes # (0-1.0) k/uL Sodium (137-145) mmol/L Carbon Dioxide (22-30) mmol/L BUN (9-20) mg/dL Creatinine (0.66-1.25) mg/dL Glucose (74-99) mg/dL Plasma Lactic Acid Niraj 3.7 H* (0.7-2.0) mmol/L AST (17-59) U/L ALT (4-49) U/L Alkaline Phosphatase (38-126) U/L Total Protein (6.3-8.2) g/dL Albumin (3.5-5.0) g/dL Urine Protein (Negative) Ur Leukocyte Esterase (Negative) Urine WBC (0-5) /hpf Urine Bacteria (None) /hpf Hyaline Casts (0-2) /lpf Urine Mucus (None) /hpf Microbiology - Last 24 Hours (Table) 05/16/21 13:07 Urine Culture - Preliminary Urine,Clean Catch Assessment and Plan (1) Normocytic anemia Current Visit: Yes Status: Acute Code(s): D64.9 - ANEMIA, UNSPECIFIED SNOMED Code(s): 444480825 (2) Fever of unknown origin Current Visit: Yes Status: Acute Code(s): R50.9 - FEVER, UNSPECIFIED SNOMED Code(s): 6294677 (3) Leukocytosis Current Visit: Yes Status: Acute Code(s): D72.829 - ELEVATED WHITE BLOOD CELL COUNT, UNSPECIFIED SNOMED Code(s): 841193327 (4) SIRS (systemic inflammatory response syndrome) Current Visit: Yes Status: Acute Code(s): R65.10 - SIRS OF NON-INFECTIOUS ORIGIN W/O ACUTE ORGAN DYSFUNCTION SNOMED Code(s): 733881294 (5) Transaminitis Current Visit: Yes Status: Acute Code(s): R74.01 - ELEVATION OF LEVELS OF LIVER TRANSAMINASE LEVELS SNOMED Code(s): 895350636 Plan: Assessment and Recommendations: Acute Leukocytosis and Normocytic Anemia: - Likely secondary to acute inflammatory/infectious process, ?Cystitis - Full hematology work-up Fever: - ID is following Elevated Liver Enzymes: - Medication/Infection? - Monitor coags Await full hematological work-up, less likely underlying hematological issue and more likely reactive.
--- NOTE | 2021-05-18 20:49 | PN ---
PROGRESS NOTE DATE OF SERVICE: 05/18/2021 REASON FOR FOLLOWUP: Leukocytosis, possible UTI, cystitis. INTERVAL HISTORY: The patient is afebrile. The patient is mentioning not feeling that good, though. No chest pain. No shortness of breath. No cough. No nausea, no vomiting. No abdominal pain or diarrhea. PHYSICAL EXAMINATION: Blood pressure 113/53 with a pulse of 56, temperature 98.4. He is 95% on room air. General description is an elderly male lying in bed in no distress. Respiratory system: Unlabored breathing, clear to auscultation anteriorly. Heart S1, S2. Regular rate and rhythm. Abdomen soft, no tenderness. Extremities no edema of feet. LABS: Creatinine is down to 1.3. CBC was not done today. Liver enzymes have slightly improved. DIAGNOSTIC IMPRESSION AND PLAN: Patient admitted to hospital with a fever, elevated white count, question of possible cystitis, though urine cultures came back negative. Patient also has elevated liver enzymes. Hepatitis panel is negative. CT of abdomen and pelvis did not show any focal liver abnormality and there was normal gallbladder, hepatobiliary system. The patient's fever has resolved and white count is trending down. To continue with Rocephin at this point. Repeat the inflammatory markers tomorrow. Continue with supportive care. MMODL / IJN: [id number] /
[2021-05-18] MEDS: metroNIDAZOLE 500 MG TAB PO SCH (21:29)
--- NOTE | 2021-05-18 22:33 | P.PN ---
Subjective Progress Note Date: 05/17/21 Principal diagnosis: acute urinary tract infection with Sepsis Patient is a 85-year-old male with a known history of hypertension, hyperlipidemia, coronary artery disease history of stent placement, asthma, previous history of smoking and dementia/memory impairment was brought to the hospital by his . Patient was brought to the hospital due to generalized weakness fatigue and loss of weight for the past 2 weeks. As per his patient has been losing weight for about a month now. He was seen by his primary care physician and was found to have elevated liver enzymes and leukocytosis. Patient was started on empiric antibiotics in the form of Zithromax. Patient continues to be so he was brought to the hospital. Otherwise patient does not have any fever or chills. No cough or sputum production. No complaints of chest pain or shortness of breath. No abdominal pain. No nausea vomiting or diarrhea. Denies any loss of appetite. On admission T-max 100.2, blood pressure 121/63 pulse is 84 respiration 18 and pulse ox 95% on room air. Laboratory data showed WBC 22.9 hemoglobin 11.1 and platelets 325 lymphocytes 0.6 Coronavirus PCR not detected Sodium 135 potassium 4.0 chloride 102 bicarb is 21 BUN 41 and creatinine 1.41 lactic acid 3.7 AST 156 ALT 195 and alk phos 208 TSH 0.898 Urinalysis showed 1+ protein small leukocyte esterase and elevated WBCs. Chest x-ray showed no acute cardiopulmonary process CT of the abdomen pelvis showed moderate-sized fat-containing umbilical hernia measuring 6.2 cm there is mild fat stranding within the hernia sac that could represent prominent omental mesenteric vessels. Mild inflammation difficult to exclude. Delayed excretion of contrast from the kidneys. Left-sided colonic diverticulosis without acute diverticulitis. Mild to moderate circumferential bladder wall thickening could represent chronic bladder wall hypertrophy versus cystitis. There is prostatomegaly correlate her PSA level. EKG showed sinus rhythm with first-degree AV block. 05/17/2021 Patient is awake alert oriented x3. Lying in the bed comfortably. No complaints of chest pain or shortness of breath. Patient still having generalized weakness but feels better. Able to tolerate oral diet slowly. Patient is being current antibiotics involve ceftriaxone for urinary tract infection. ID is on board. Urine culture showed no growth. No nausea vomiting abdominal pain or diarrhea. No cough or sputum production. Laboratory data showed BUN 39.1 and creatinine 1.5 total bilirubin level improved to 0.3. WBC count improved to 16.2 and hemoglobin 10.2 and platelets 361. Discussed with the family at bedside in detail. PT OT will be consulted. Current medications reviewed. Objective - Vital Signs Vital signs: Vital Signs Temp 98.3 F 05/17/21 13:00 Pulse 65 05/17/21 13:00 Resp 16 05/17/21 13:00 BP 129/72 05/17/21 13:00 Pulse Ox 95 05/17/21 13:00 Intake & Output 05/17/21 05/17/21 05/18/21 06:59 18:59 05:59 Intake Total 1960 Balance 1959 Weight 94.801 kg Intake: Intake, IV Titration 1400 Amount Sodium Chloride 0.9% 1, 1400 000 ml @ 100 mls/hr IV . Q10H MICHAEL Rx#:[id number] Oral 560 Other: Voiding Method Toilet Toilet Toilet # Voids 1 2 1 - Exam PHYSICAL EXAMINATION: Patient is lying in the bed comfortably, no acute distress, awake alert and oriented. HEENT: Normocephalic. Neck is supple. Pupils reactive. Nostrils clear. Oral c avity is moist. Neck reveals no JVD, carotid bruits, or thyromegaly. CHEST EXAMINATION: Trachea is central. Symmetrical expansion. Bibasilar diminished sounds. No rhonchi or wheezing.. CARDIAC: Normal S1, S2 with no gallops. No murmurs ABDOMEN: Soft. Bowel sounds normal. No organomegaly. No abdominal bruits. Extremities: reveal no edema. No clubbing or cyanosis Neurologically awake, alert, oriented x2-3 ..Able to move extremities while in bed. No gross focal deficits noted Skin: No rash or skin lesions. Psychiatric: Cooperative. Musculoskeletal: No joint swelling or deformity. Normal range of motion. - Labs CBC & Chem 7: 05/17/21 06:58 05/18/21 06:34 Labs: Abnormal Lab Results - Last 24 Hours (Table) 05/17/21 05/17/21 05/17/21 Range/Units 06:58 06:58 06:58 WBC 16.2 H (3.8-10.6) k/uL RBC 3.36 L (4.30-5.90) m/uL Hgb 10.2 L (13.0-17.5) gm/dL Hct 31.7 L (39.0-53.0) % Neutrophils # 12.9 H (1.3-7.7) k/uL Eosinophils # 0.8 H (0-0.7) k/uL Haptoglobin (31.2-198.0) mg/dL Anion Gap 13.50 H (4.00-12.00) mmol/L BUN 39.1 H (9.0-27.0) mg/dL Est GFR (CKD-EPI)AfAm 49.2 L (60.0-200.0) Est GFR (CKD-EPI)NonAf 42.4 L (60.0-200.0) BUN/Creatinine Ratio 26.07 H (12.00-20.00) Ratio Calcium 8.3 L (8.7-10.3) mg/dL Iron (65-175) ug/dL TIBC (228-460) ug/dL Transferrin (204.0-354.0) mg/dL Ferritin 2797.0 H (22.0-322.0) ng/mL AST 163 H (14-35) U/L ALT 210 H (10-49) U/L Alkaline Phosphatase 160 H (41-126) U/L C-Reactive Protein 20.00 H (0.00-0.80) mg/dL Total Protein 5.3 L (6.2-8.2) g/dL Total Protein (PEP) (6.2-8.2) g/dL Albumin 2.9 L (3.8-4.9) g/dL Albumin/Globulin Ratio 1.21 L (1.60-3.17) g/dL Procalcitonin 0.48 H (0.02-0.09) ng/mL 05/17/21 05/17/21 Range/Units 06:58 06:58 WBC (3.8-10.6) k/uL RBC (4.30-5.90) m/uL Hgb (13.0-17.5) gm/dL Hct (39.0-53.0) % Neutrophils # (1.3-7.7) k/uL Eosinophils # (0-0.7) k/uL Haptoglobin 408.0 H (31.2-198.0) mg/dL Anion Gap (4.00-12.00) mmol/L BUN (9.0-27.0) mg/dL Est GFR (CKD-EPI)AfAm (60.0-200.0) Est GFR (CKD-EPI)NonAf (60.0-200.0) BUN/Creatinine Ratio (12.00-20.00) Ratio Calcium (8.7-10.3) mg/dL Iron 40 L (65-175) ug/dL TIBC 151 L (228-460) ug/dL Transferrin 108.0 L (204.0-354.0) mg/dL Ferritin (22.0-322.0) ng/mL AST (14-35) U/L ALT (10-49) U/L Alkaline Phosphatase (41-126) U/L C-Reactive Protein (0.00-0.80) mg/dL Total Protein (6.2-8.2) g/dL Total Protein (PEP) 5.1 L (6.2-8.2) g/dL Albumin (3.8-4.9) g/dL Albumin/Globulin Ratio (1.60-3.17) g/dL Procalcitonin (0.02-0.09) ng/mL Microbiology - Last 24 Hours (Table) 05/16/21 13:07 Urine Culture - Final Urine,Clean Catch 05/16/21 14:50 Blood Culture - Preliminary Blood No Growth after 24 hours 05/16/21 14:55 Blood Culture - Preliminary Blood No Growth after 24 hours Assessment and Plan Assessment: SIRS/leukocytosis, fever lactic acidosis Possible acute urinary tract infection with Sepsis Generalized weakness fatigue and weight loss. Lactic acidosis likely due to dehydration volume depletion and infection. improved. Acute kidney injury likely prerenal Hypovolemic hyponatremia Elevated liver enzymes Mild protein calorie malnutrition Hypertension Hyperlipidemia Coronary artery disease history of stent placement Hyperlipidemia History of CA Previous history of smoking DVT prophylaxis with heparin subcu Plan: Patient will be continued on gentle IV hydration and antibiotics in the form of ceftriaxone. Follow-up urine culture and blood culture report. Follow-up inflammatory markers. COVID-19 test is negative. Continue with duo nebs and follow-up closely. ID and oncology is on board. Prognosis guarded at this time. Time with Patient: Greater than 30
--- NOTE | 2021-05-18 22:38 | P.PN ---
Subjective Progress Note Date: 05/18/21 Principal diagnosis: acute urinary tract infection with Sepsis Patient is a 85-year-old male with a known history of hypertension, hyperlipidemia, coronary artery disease history of stent placement, asthma, previous history of smoking and dementia/memory impairment was brought to the hospital by his . Patient was brought to the hospital due to generalized weakness fatigue and loss of weight for the past 2 weeks. As per his patient has been losing weight for about a month now. He was seen by his primary care physician and was found to have elevated liver enzymes and leukocytosis. Patient was started on empiric antibiotics in the form of Zithromax. Patient continues to be so he was brought to the hospital. Otherwise patient does not have any fever or chills. No cough or sputum production. No complaints of chest pain or shortness of breath. No abdominal pain. No nausea vomiting or diarrhea. Denies any loss of appetite. On admission T-max 100.2, blood pressure 121/63 pulse is 84 respiration 18 and pulse ox 95% on room air. Laboratory data showed WBC 22.9 hemoglobin 11.1 and platelets 325 lymphocytes 0.6 Coronavirus PCR not detected Sodium 135 potassium 4.0 chloride 102 bicarb is 21 BUN 41 and creatinine 1.41 lactic acid 3.7 AST 156 ALT 195 and alk phos 208 TSH 0.898 Urinalysis showed 1+ protein small leukocyte esterase and elevated WBCs. Chest x-ray showed no acute cardiopulmonary process CT of the abdomen pelvis showed moderate-sized fat-containing umbilical hernia measuring 6.2 cm there is mild fat stranding within the hernia sac that could represent prominent omental mesenteric vessels. Mild inflammation difficult to exclude. Delayed excretion of contrast from the kidneys. Left-sided colonic diverticulosis without acute diverticulitis. Mild to moderate circumferential bladder wall thickening could represent chronic bladder wall hypertrophy versus cystitis. There is prostatomegaly correlate her PSA level. EKG showed sinus rhythm with first-degree AV block. 05/17/2021 Patient is awake alert oriented x3. Lying in the bed comfortably. No complaints of chest pain or shortness of breath. Patient still having generalized weakness but feels better. Able to tolerate oral diet slowly. Patient is being current antibiotics involve ceftriaxone for urinary tract infection. ID is on board. Urine culture showed no growth. No nausea vomiting abdominal pain or diarrhea. No cough or sputum production. Laboratory data showed BUN 39.1 and creatinine 1.5 total bilirubin level improved to 0.3. WBC count improved to 16.2 and hemoglobin 10.2 and platelets 361. Discussed with the family at bedside in detail. PT OT will be consulted. 05/18/2021 Patient is currently resting in the bed. Awake alert and oriented today. Able to tolerate oral diet. Patient has been afebrile. No nausea vomiting or abdominal pain or diarrhea. No cough or sputum production. Denies any headache or dizziness. Laboratory showed BUN 28 and creatinine 1.3 and blood sugar is 104 liver enzymes are trending down. Bilirubin level is normalizing. Hepatitis panel is negative. Patient is being current on antibiotics in the form of ceftriaxone. Flagyl was added for possible intra-abdominal infection. Blood cultures and urine cultures are negative so far. ID and oncology is on board. Current medications reviewed. Objective - Vital Signs Vital signs: Vital Signs Temp 98.4 F 05/18/21 12:51 Pulse 56 L 05/18/21 12:51 Resp 18 05/18/21 12:51 BP 132/53 05/18/21 12:51 Pulse Ox 95 05/18/21 12:51 Intake & Output 05/17/21 05/18/21 05/18/21 19:59 06:59 18:59 Intake Total 1500 Balance 1500 Weight Intake: Oral 1500 Other: Voiding Method Toilet # Voids 4 - Exam PHYSICAL EXAMINATION: Patient is lying in the bed comfortably, no acute distress, awake alert and oriented. HEENT: Normocephalic. Neck is supple. Pupils reactive. Nostrils clear. Oral cavity is moist. Neck reveals no JVD, carotid bruits, or thyromegaly. CHEST EXAMINATION: Trachea is central. Symmetrical expansion. Bibasilar diminished sounds. No rhonchi or wheezing.. CARDIAC: Normal S1, S2 with no gallops. No murmurs ABDOMEN: Soft. Bowel sounds normal. No organomegaly. No abdominal bruits. Extremities: reveal no edema. No clubbing or cyanosis Neurologically awake, alert, oriented x2-3 ..Able to move extremities while in bed. No gross focal deficits noted Skin: No rash or skin lesions. Psychiatric: Cooperative. Musculoskeletal: No joint swelling or deformity. Normal range of motion. - Labs CBC & Chem 7: 05/17/21 06:58 05/18/21 06:34 Labs: Abnormal Lab Results - Last 24 Hours (Table) 05/17/21 05/18/21 Range/Units 06:58 06:34 Haptoglobin 408.0 H (31.2-198.0) mg/dL BUN 28.3 H (9.0-27.0) mg/dL Est GFR (CKD-EPI)AfAm 58.5 L (60.0-200.0) Est GFR (CKD-EPI)NonAf 50.5 L (60.0-200.0) BUN/Creatinine Ratio 21.77 H (12.00-20.00) Ratio Calcium 8.4 L (8.7-10.3) mg/dL AST 95 H (14-35) U/L ALT 154 H (10-49) U/L Alkaline Phosphatase 148 H (41-126) U/L Total Protein 5.1 L (6.2-8.2) g/dL Total Protein (PEP) 5.1 L (6.2-8.2) g/dL Albumin 2.8 L (3.8-4.9) g/dL Albumin/Globulin Ratio 1.22 L (1.60-3.17) g/dL Microbiology - Last 24 Hours (Table) 05/16/21 14:50 Blood Culture - Preliminary Blood No Growth after 48 hours 05/16/21 14:55 Blood Culture - Preliminary Blood No Growth after 48 hours 05/16/21 13:07 Urine Culture - Final Urine,Clean Catch Assessment and Plan Assessment: SIRS/leukocytosis, fever lactic acidosis Possible acute urinary tract infection with Sepsis Generalized weakness fatigue and weight loss. Lactic acidosis likely due to dehydration volume depletion and infection. improved. Acute kidney injury likely prerenal Hypovolemic hyponatremia Elevated liver enzymes Mild protein calorie malnutrition Hypertension Hyperlipidemia Coronary artery disease history of stent placement Hyperlipidemia History of [place] Previous history of smoking DVT prophylaxis with heparin subcu Plan: Patient will be continued on antibiotics in the form of ceftriaxone. negative urine culture and blood culture report. Oncology and ID is on board. Leukocytosis likely due to intermittent reaction. Hematology work-up was ordered. Flagyl was added for possible intra-abdominal infection. Follow-up inflammatory markers. COVID-19 test is negative. Continue with duo nebs and follow-up closely. Prognosis guarded at this time. PT OT will be consulted. Time with Patient: Greater than 30
[2021-05-19 06:23] LABS: Basophils # (A) 0.1 k/uL (0-0.2); Basophils % (A) 0 %; Eosinophils # (A) 0.7 k/uL (0-0.7); Eosinophils % (A) 4 %; HCT 30.4 % (39.0-53.0); HGB 9.9 gm/dL (13.0-17.5); Lymphocytes # (A) 1.5 k/uL (1.0-4.8); Lymphocytes % (A) 9 %; MCH 30.5 pg (25.0-35.0); MCHC 32.5 g/dL (31.0-37.0); MCV 93.9 fL (80.0-100.0); Mean Platelet Volume 7.7; Monocytes # (A) 1.2 k/uL (0-1.0); Monocytes % (A) 7 %; Neutrophils % (A) 78 %; Platelet Count 361 k/uL (150-450); RBC 3.24 m/uL (4.30-5.90); RDW 12.6 % (11.5-15.5); WBC 16.6 k/uL (3.8-10.6)
[2021-05-19] MEDS: DONEPEZIL 5 MG TAB PO SCH ×2 (07:59→21:37)
[2021-05-19] MEDS: ASPIRIN 81 MG PO SCH (07:59)
[2021-05-19] MEDS: MEMANTINE 10 MG TAB PO SCH ×2 (07:59→21:36)
[2021-05-19] MEDS: metroNIDAZOLE 500 MG TAB PO SCH ×3 (07:59→21:36)
[2021-05-19] MEDS: MONTELUKAST 10 MG TAB PO SCH (07:59)
[2021-05-19] MEDS: HEPARIN SODIUM,PORCINE/PF 5,000 UNIT/0.5 ML SYRINGE SQ SCH ×2 (07:59→21:37)
[2021-05-19] MEDS: FAMOTIDINE 20 MG TAB PO SCH ×2 (08:00→21:37)
[2021-05-19 08:36] LABS: Free Kappa Lt Chain Qnt, Serum 5.18 mg/dL (0.33-1.94)
[2021-05-19 10:30] LABS: African American GFR (CKD) 58.5 (60.0-200.0); Albumin 2.8 g/dL (3.8-4.9); Albumin/Globulin Ratio 1.17 (1.60-3.17); Anion Gap 10.5 mmol/L (4.00-12.00); BUN/Creat Ratio 18.38 Ratio (12.00-20.00); Blood Urea Nitrogen 23.9 mg/dL (9.0-27.0); C Reactive Protein 17.5 mg/dL (0.00-0.80); Calcium 8.3 mg/dL (8.7-10.3); Carbon Dioxide 23.5 mmol/L (21.6-31.8); Globulin 2.4 g/dL (1.6-3.3); Non-African American GFR(CKD) 50.5 (60.0-200.0); Potassium 4.1 mmol/L (3.5-5.5); Total Bilirubin 0.4 mg/dL (0.30-1.20); Total Protein 5.2 g/dL (6.2-8.2)
--- NOTE | 2021-05-19 12:35 | P.PN ---
Subjective Progress Note Date: 05/19/21 Principal diagnosis: UTI Sepsis Blood counts are stable, safe range. Should see further improvement after underlying problem resolved. Objective - Vital Signs Vital signs: Vital Signs Temp 98.2 F 05/19/21 08:00 Pulse 69 05/19/21 08:00 Resp 17 05/19/21 08:00 BP 166/83 05/19/21 08:00 Pulse Ox 97 05/19/21 08:00 Intake & Output 05/18/21 05/19/21 05/19/21 18:59 06:59 18:59 Intake Total 1500 240 Balance 1500 240 Intake: Oral 1500 240 Other: Voiding Method Toilet Toilet Toilet # Voids 4 1 - Exam A:ert GAMBELL Neck: Supple Lungs: Diminished bbases Heart: Irr Abdomen: Soft Ext: Pedal - Labs CBC & Chem 7: 05/19/21 05:57 05/19/21 05:57 Labs: Abnormal Lab Results - Last 24 Hours (Table) 05/17/21 05/19/21 05/19/21 Range/Units 06:58 05:57 05:57 WBC 16.6 H (3.8-10.6) k/uL RBC 3.24 L (4.30-5.90) m/uL Hgb 9.9 L (13.0-17.5) gm/dL Hct 30.4 L (39.0-53.0) % Neutrophils # 13.0 H (1.3-7.7) k/uL Monocytes # 1.2 H (0-1.0) k/uL Est GFR (CKD-EPI)AfAm 58.5 L (60.0-200.0) Est GFR (CKD-EPI)NonAf 50.5 L (60.0-200.0) Glucose 111 H (70-110) mg/dL Calcium 8.3 L (8.7-10.3) mg/dL AST 75 H (14-35) U/L ALT 134 H (10-49) U/L Alkaline Phosphatase 149 H (41-126) U/L C-Reactive Protein 17.50 H (0.00-0.80) mg/dL Total Protein 5.2 L (6.2-8.2) g/dL Albumin 2.8 L (3.8-4.9) g/dL Albumin/Globulin Ratio 1.17 L (1.60-3.17) g/dL Free [place] LC, Quant 5.18 H (0.33-1.94) mg/dL Free [place] LC, Quant 3.10 H (0.57-2.63) mg/dL Microbiology - Last 24 Hours (Table) 05/16/21 14:50 Blood Culture - Preliminary Blood No Growth after 48 hours 05/16/21 14:55 Blood Culture - Preliminary Blood No Growth after 48 hours Assessment and Plan (1) Normocytic anemia Current Visit: Yes Status: Acute Code(s): D64.9 - ANEMIA, UNSPECIFIED SNOMED Code(s): 051543836 (2) Fever of unknown origin Current Visit: Yes Status: Acute Code(s): R50.9 - FEVER, UNSPECIFIED SNOMED Code(s): 3096904 (3) Leukocytosis Current Visit: Yes Status: Acute Code(s): D72.829 - ELEVATED WHITE BLOOD CELL COUNT, UNSPECIFIED SNOMED Code(s): 693186647 (4) SIRS (systemic inflammatory response syndrome) Current Visit: Yes Status: Acute Code(s): R65.10 - SIRS OF NON-INFECTIOUS ORIGIN W/O ACUTE ORGAN DYSFUNCTION SNOMED Code(s): 724096609 (5) Transaminitis Current Visit: Yes Status: Acute Code(s): R74.01 - ELEVATION OF LEVELS OF LIVER TRANSAMINASE LEVELS SNOMED Code(s): 295894941 Plan: Assessment and Recommendations: Acute Leukocytosis and Normocytic Anemia: - Likely secondary to acute inflammatory/infectious process, ?Cystitis Fever: - ID is following - Resolved - Secondary to UTI and Sepsis Elevated Liver Enzymes: Improving - Medication/Infection? - Monitor coags UTI: - Improving Hematological work-up negative todate. FOlate and B12 on low normal will provide supplementation Discussed with primary team. Discussed with familly
[2021-05-19 16:08] LABS: Albumin 2.16 g/dL (3.80-4.90); Gamma Globulin 1.03 g/dL (0.70-1.50)
[2021-05-19] MEDS: ZOLPIDEM 5 MG TAB PO PRN (21:36)
--- NOTE | 2021-05-19 23:04 | PN ---
PROGRESS NOTE DATE OF SERVICE: 05/19/2021. REASON FOR FOLLOW UP: INTERVAL HISTORY: Patient is afebrile. The patient is currently breathing comfortably, feeling slightly better. The patient denies having any chest pain, shortness of breath or cough. No abdominal pain. No diarrhea. PHYSICAL EXAMINATION: Blood pressure is 136/62 with a pulse of 71, temperature of 98. He is 98% on room air. General description is an elderly male lying in bed in no distress. Respiratory system: Unlabored breathing, decreased intensity of breath sounds. No wheeze. Heart S1, S2. Regular rate and rhythm. Abdomen soft, no tenderness. Extremities: No edema of the feet. LABS: Hemoglobin 9.1, white count 16.6, BUN of 23, creatinine is 1.3. DIAGNOSTIC IMPRESSION AND PLAN: Patient with concerning for possible urinary tract infection in this patient culture so far negative. The patient did have a CT of abdomen and pelvis did not show any intraabdominal pathology. Liver enzymes are elevated. panel was negative. The patient is currently on empiric Rocephin that will be continued for now with no clear focus. We will obtain a WBC scan to see that will be helpful in identifying any obvious focus of infection. Continue supportive care. MMODL / IJN: [id number] /
[2021-05-20] MEDS: CYANOCOBALAMIN 500 MCG TAB PO SCH (08:23)
[2021-05-20] MEDS: DONEPEZIL 5 MG TAB PO SCH ×2 (08:24→21:17)
[2021-05-20] MEDS: MEMANTINE 10 MG TAB PO SCH ×2 (08:24→21:17)
[2021-05-20] MEDS: FOLIC ACID 1 MG TAB PO SCH (08:24)
[2021-05-20] MEDS: MONTELUKAST 10 MG TAB PO SCH (08:24)
[2021-05-20] MEDS: FAMOTIDINE 20 MG TAB PO SCH ×2 (08:24→21:17)
[2021-05-20] MEDS: ASPIRIN 81 MG PO SCH (08:24)
[2021-05-20] MEDS: metroNIDAZOLE 500 MG TAB PO SCH ×3 (08:24→21:17)
[2021-05-20] MEDS: HEPARIN SODIUM,PORCINE/PF 5,000 UNIT/0.5 ML SYRINGE SQ SCH ×2 (09:16→21:17)
[2021-05-20 10:56] LABS: African American GFR (CKD) 64.4 (60.0-200.0); Albumin 2.8 g/dL (3.8-4.9); Albumin/Globulin Ratio 1.17 (1.60-3.17); Anion Gap 11.2 mmol/L (4.00-12.00); BUN/Creat Ratio 18.75 Ratio (12.00-20.00); Blood Urea Nitrogen 22.5 mg/dL (9.0-27.0); C Reactive Protein 17.7 mg/dL (0.00-0.80); Calcium 8.4 mg/dL (8.7-10.3); Carbon Dioxide 23.8 mmol/L (21.6-31.8); Globulin 2.4 g/dL (1.6-3.3); Non-African American GFR(CKD) 55.6 (60.0-200.0); Potassium 4.5 mmol/L (3.5-5.5); Total Bilirubin 0.4 mg/dL (0.30-1.20); Total Protein 5.2 g/dL (6.2-8.2)
[2021-05-20 12:39] LABS: Basophils # (A) 0.1 k/uL (0-0.2); Basophils % (A) 0 %; Eosinophils # (A) 0.6 k/uL (0-0.7); Eosinophils % (A) 4 %; HCT 30.2 % (39.0-53.0); HGB 9.8 gm/dL (13.0-17.5); Lymphocytes # (A) 1.4 k/uL (1.0-4.8); Lymphocytes % (A) 8 %; MCH 30.3 pg (25.0-35.0); MCHC 32.4 g/dL (31.0-37.0); MCV 93.6 fL (80.0-100.0); Mean Platelet Volume 8.2; Monocytes % (A) 6 %; Neutrophils # (A) 14.5 k/uL (1.3-7.7); Neutrophils % (A) 81 %; Platelet Count 376 k/uL (150-450); RBC 3.23 m/uL (4.30-5.90); RDW 12.7 % (11.5-15.5); WBC 17.9 k/uL (3.8-10.6)
--- NOTE | 2021-05-20 17:06 | NM ---
EXAMINATION TYPE: NM WBC whole body DATE OF EXAM: 05/20/2021 COMPARISON: NONE HISTORY: Fever. TECHNIQUE: Following administration of 22.1 mCi Tc99m Ceretec. Images obtained 4 hours post injecti on. FINDINGS: Normal physiological tracer activity is noted in the liver and spleen and in the bone marrow of the a xial and appendicular skeleton. IMPRESSION: Normal white blood cell scan. No evidence for abnormal tracer activity. No evidence of a pyogenic infection.
[2021-05-20] MEDS: ZOLPIDEM 5 MG TAB PO PRN (23:19)
--- NOTE | 2021-05-20 23:57 | PN ---
PROGRESS NOTE DATE OF SERVICE: 05/20/2021 REASON FOR FOLLOWUP: Fever. INTERVAL HISTORY: The patient's overall fever pattern has improved. The patient is breathing comfortably, feeling better. The patient denies having any chest pain or shortness of breath or cough. No abdominal pain or diarrhea. PHYSICAL EXAMINATION: Blood pressure 128/69 with a pulse of 70, temperature 99.4. He is 95% on room air. General description is an elderly male lying in bed in no distress. Respiratory system: Unlabored breathing, clear to auscultation anteriorly. Heart S1, S2. Regular rate and rhythm. Abdomen soft, no tenderness. Extremities no edema of the feet. LABS: Hemoglobin is 9.9, white count of 17.9. Sedimentation rate is elevated. Procalcitonin 0.29. WBC scanning came back negative. DIAGNOSTIC IMPRESSION AND PLAN: Patient with a fever and elevated white count in this patient who did have extensive workup, including chest x-ray, CT of abdomen and pelvis. Did have initial concern for cystitis based on the CT and a positive UA, mildly positive urine. Cultures have been negative. WBC scan came back negative as well. On empiric Rocephin and Flagyl; to continue while monitoring his clinical course closely. Continue with supportive care. MMODL / IJN: [id number] /
[2021-05-21 06:27] LABS: Basophils # (A) 0.1 k/uL (0-0.2); Basophils % (A) 0 %; Eosinophils # (A) 0.8 k/uL (0-0.7); Eosinophils % (A) 5 %; HCT 29.4 % (39.0-53.0); HGB 9.5 gm/dL (13.0-17.5); Lymphocytes # (A) 1.7 k/uL (1.0-4.8); Lymphocytes % (A) 10 %; MCH 30.5 pg (25.0-35.0); MCHC 32.2 g/dL (31.0-37.0); MCV 94.5 fL (80.0-100.0); Mean Platelet Volume 8.3; Monocytes # (A) 1.2 k/uL (0-1.0); Monocytes % (A) 7 %; Neutrophils # (A) 13.5 k/uL (1.3-7.7); Neutrophils % (A) 77 %; Platelet Count 416 k/uL (150-450); RBC 3.11 m/uL (4.30-5.90); RDW 12.6 % (11.5-15.5); WBC 17.6 k/uL (3.8-10.6)
[2021-05-21] MEDS: metroNIDAZOLE 500 MG TAB PO SCH ×3 (07:45→20:55)
[2021-05-21] MEDS: MEMANTINE 10 MG TAB PO SCH ×2 (07:45→20:55)
[2021-05-21] MEDS: MONTELUKAST 10 MG TAB PO SCH (07:46)
[2021-05-21] MEDS: ASPIRIN 81 MG PO SCH (07:46)
[2021-05-21] MEDS: FAMOTIDINE 20 MG TAB PO SCH ×2 (07:46→20:55)
[2021-05-21] MEDS: CYANOCOBALAMIN 500 MCG TAB PO SCH (07:47)
[2021-05-21] MEDS: DONEPEZIL 5 MG TAB PO SCH ×2 (07:48→20:55)
[2021-05-21] MEDS: FOLIC ACID 1 MG TAB PO SCH (07:48)
[2021-05-21] MEDS: HEPARIN SODIUM,PORCINE/PF 5,000 UNIT/0.5 ML SYRINGE SQ SCH ×2 (07:48→20:55)
--- NOTE | 2021-05-21 11:13 | P.PN ---
Subjective Progress Note Date: 05/21/21 Principal diagnosis: UTI Sepsis PSA is elevated and increased Prostate is identified in CT. If patient has not followed with Urology, will recommend. Given his Leukocytosis and Anemia have not improved with antibiotics the past few days, Urology consult to further evaluate is resonable Objective - Vital Signs Vital signs: Vital Signs Temp 97.8 F 05/21/21 07:07 Pulse 63 05/21/21 07:07 Resp 17 05/21/21 07:07 BP 118/61 05/21/21 07:07 Pulse Ox 94 L 05/21/21 07:07 Intake & Output 05/20/21 05/21/21 05/21/21 18:59 06:59 18:59 Intake Total 650 600 Balance 650 600 Intake: Intake, IV Titration 50 Amount cefTRIAXone 2 gm In 50 Sodium Chloride 0.9% 50 ml @ 100 mls/hr IVPB Q24HR [facility] Rx#:[id number] Oral 600 600 Other: Voiding Method Toilet Toilet # Voids 3 2 - Labs CBC & Chem 7: 05/21/21 05:41 05/21/21 05:41 Labs: Abnormal Lab Results - Last 24 Hours (Table) 05/17/21 05/20/21 05/20/21 Range/Units 06:58 05:06 12:09 WBC 17.9 H (3.8-10.6) k/uL RBC 3.23 L (4.30-5.90) m/uL Hgb 9.8 L (13.0-17.5) gm/dL Hct 30.2 L (39.0-53.0) % Neutrophils # 14.5 H (1.3-7.7) k/uL Monocytes # (0-1.0) k/uL Eosinophils # (0-0.7) k/uL ESR 95 H (0-20) mm/Hr Total PSA 5.9 H (<=4.0) ng/mL 05/21/21 Range/Units 05:41 WBC 17.6 H (3.8-10.6) k/uL RBC 3.11 L (4.30-5.90) m/uL Hgb 9.5 L (13.0-17.5) gm/dL Hct 29.4 L (39.0-53.0) % Neutrophils # 13.5 H (1.3-7.7) k/uL Monocytes # 1.2 H (0-1.0) k/uL Eosinophils # 0.8 H (0-0.7) k/uL ESR (0-20) mm/Hr Total PSA (<=4.0) ng/mL Microbiology - Last 24 Hours (Table) 05/16/21 14:50 Blood Culture - Preliminary Blood No Growth after 96 hours 05/16/21 14:55 Blood Culture - Preliminary Blood No Growth after 96 hours Assessment and Plan (1) Normocytic anemia Current Visit: Yes Status: Acute Code(s): D64.9 - ANEMIA, UNSPECIFIED SNOMED Code(s): 270738371 (2) Fever of unknown origin Current Visit: Yes Status: Acute Code(s): R50.9 - FEVER, UNSPECIFIED SNOMED Code(s): 9487564 (3) Leukocytosis Current Visit: Yes Status: Acute Code(s): D72.829 - ELEVATED WHITE BLOOD CELL COUNT, UNSPECIFIED SNOMED Code(s): 078804657 (4) SIRS (systemic inflammatory response syndrome) Current Visit: Yes Status: Acute Code(s): R65.10 - SIRS OF NON-INFECTIOUS ORIGIN W/O ACUTE ORGAN DYSFUNCTION SNOMED Code(s): 355016985 (5) Transaminitis Current Visit: Yes Status: Acute Code(s): R74.01 - ELEVATION OF LEVELS OF LIVER TRANSAMINASE LEVELS SNOMED Code(s): 445351362 Plan: Assessment and Recommendations: Acute Leukocytosis and Normocytic Anemia: - Likely secondary to acute inflammatory/infectious process, ?Cystitis Fever: - ID is following - Resolved - Secondary to UTI and Sepsis Elevated Liver Enzymes: Improving - Medication/Infection? - Monitor coags UTI: - Improving Hematological work-up negative todate. Nutrient deficiencies with Folate and B12 continue ordered supplementation Enlarged Prostate and Increased PSA: - With picture of cystitis would recommend Urology evaluation - Discussed with primary team
[2021-05-21 12:39] LABS: African American GFR (CKD) 65.1 (60.0-200.0); Anion Gap 10.2 mmol/L (4.00-12.00); BUN/Creat Ratio 16.39 Ratio (12.00-20.00); Blood Urea Nitrogen 19.5 mg/dL (9.0-27.0); Calcium 8.4 mg/dL (8.7-10.3); Carbon Dioxide 24.3 mmol/L (21.6-31.8); Non-African American GFR(CKD) 56.2 (60.0-200.0)
[2021-05-21] MEDS ORDERED: FLUCONAZOLE 100 MG TAB PO ONE (14:13)
--- NOTE | 2021-05-21 16:46 | PN ---
PROGRESS NOTE DATE OF SERVICE: 05/21/2021 REASON FOR FOLLOWUP: Fever, possible cystitis. INTERVAL HISTORY: Patient is afebrile. The patient overall is feeling better. Breathing comfortably. The patient denies having any chest pain, shortness of breath or cough. No abdominal pain. No diarrhea. PHYSICAL EXAMINATION: Blood pressure 146/79, pulse of 68, temperature 97.8. He is 97% on room air. General description is an elderly male lying in bed in no distress. Respiratory system: Unlabored breathing, clear to auscultation anteriorly. Heart S1, S2. Regular rate and rhythm. Abdomen soft, no tenderness. LABS: Hemoglobin is 9.5. White count still 17.6. Creatinine is 1.2. DIAGNOSTIC IMPRESSION AND PLAN: Patient with fever, elevated white count in this patient who did have extensive workup. A CT of abdomen and pelvis was suspicious for cystitis and the patient did have mildly positive UA. His fever responded to the however, white count remains to be elevated. He did have a WBC scan that was negative as well. We will repeat his urine culture while continuing the patient on Rocephin and Flagyl, Diflucan and monitor clinical course closely. MMODL / IJN: [id number] /
[2021-05-21 18:09] LABS: Appearance,Urine Clear (Clear); Bilirubin,Urine Negative (Negative); Blood,Urine Negative (Negative); Color,Urine Yellow; Glucose,Urine (UA) Negative (Negative); Ketones,Urine Negative (Negative); Leukocyte Esterase,Urine Small (Negative); Mucus,Urine Rare /hpf; Nitrite,Urine Negative (Negative); Protein,Urine Trace (Negative); RBC,Urine <1 /hpf (0-5); Specific Gravity,Urine 1.014 (1.001-1.035); Urobilinogen,Urine <2.0 mg/dL (<2.0); WBC,Urine 1 /hpf (0-5)
[2021-05-21] MEDS: ZOLPIDEM 5 MG TAB PO PRN (20:55)
--- NOTE | 2021-05-21 22:46 | P.PN ---
Subjective Progress Note Date: 05/19/21 Principal diagnosis: acute urinary tract infection with Sepsis Patient is a 85-year-old male with a known history of hypertension, hyperlipidemia, coronary artery disease history of stent placement, asthma, previous history of smoking and dementia/memory impairment was brought to the hospital by his . Patient was brought to the hospital due to generalized weakness fatigue and loss of weight for the past 2 weeks. As per his patient has been losing weight for about a month now. He was seen by his primary care physician and was found to have elevated liver enzymes and leukocytosis. Patient was started on empiric antibiotics in the form of Zithromax. Patient continues to be so he was brought to the hospital. Otherwise patient does not have any fever or chills. No cough or sputum production. No complaints of chest pain or shortness of breath. No abdominal pain. No nausea vomiting or diarrhea. Denies any loss of appetite. On admission T-max 100.2, blood pressure 121/63 pulse is 84 respiration 18 and pulse ox 95% on room air. Laboratory data showed WBC 22.9 hemoglobin 11.1 and platelets 325 lymphocytes 0.6 Coronavirus PCR not detected Sodium 135 potassium 4.0 chloride 102 bicarb is 21 BUN 41 and creatinine 1.41 lactic acid 3.7 AST 156 ALT 195 and alk phos 208 TSH 0.898 Urinalysis showed 1+ protein small leukocyte esterase and elevated WBCs. Chest x-ray showed no acute cardiopulmonary process CT of the abdomen pelvis showed moderate-sized fat-containing umbilical hernia measuring 6.2 cm there is mild fat stranding within the hernia sac that could represent prominent omental mesenteric vessels. Mild inflammation difficult to exclude. Delayed excretion of contrast from the kidneys. Left-sided colonic diverticulosis without acute diverticulitis. Mild to moderate circumferential bladder wall thickening could represent chronic bladder wall hypertrophy versus cystitis. There is prostatomegaly correlate her PSA level. EKG showed sinus rhythm with first-degree AV block. 05/17/2021 Patient is awake alert oriented x3. Lying in the bed comfortably. No complaints of chest pain or shortness of breath. Patient still having generalized weakness but feels better. Able to tolerate oral diet slowly. Patient is being current antibiotics involve ceftriaxone for urinary tract infection. ID is on board. Urine culture showed no growth. No nausea vomiting abdominal pain or diarrhea. No cough or sputum production. Laboratory data showed BUN 39.1 and creatinine 1.5 total bilirubin level improved to 0.3. WBC count improved to 16.2 and hemoglobin 10.2 and platelets 361. Discussed with the family at bedside in detail. PT OT will be consulted. 05/18/2021 Patient is currently resting in the bed. Awake alert and oriented today. Able to tolerate oral diet. Patient has been afebrile. No nausea vomiting or abdominal pain or diarrhea. No cough or sputum production. Denies any headache or dizziness. Laboratory showed BUN 28 and creatinine 1.3 and blood sugar is 104 liver enzymes are trending down. Bilirubin level is normalizing. Hepatitis panel is negative. Patient is being current on antibiotics in the form of ceftriaxone. Flagyl was added for possible intra-abdominal infection. Blood cultures and urine cultures are negative so far. ID and oncology is on board. 05/19/2021 Patient is currently resting in bed comfortably. No complaints of chest pain or shortness breath. No fever no chills. Patient has been afebrile. No nausea vomiting or diarrhea. Patient does have very poor appetite. Laboratory showed still leukocytosis with WBC count 16.6 and hemoglobin 9.9 and elevated liver enzymes and CRP. Procalcitonin level is 1.17. ID and oncology is on board. Leukocytosis likely due to infection as per oncology. Cultures have been negative so far. Current medications reviewed. Objective - Vital Signs Vital signs: Vital Signs Temp 98.2 F 05/19/21 13:00 Pulse 58 L 05/19/21 13:00 Resp 16 05/19/21 13:00 BP 144/75 05/19/21 13:00 Pulse Ox 97 05/19/21 13:00 Intake & Output 05/18/21 05/19/21 05/19/21 18:59 06:59 18:59 Intake Total 1500 240 Balance 1500 240 Intake: Oral 1500 240 Other: Voiding Method Toilet Toilet Toilet # Voids 4 1 2 - Exam PHYSICAL EXAMINATION: Patient is lying in the bed comfortably, no acute distress, awake alert and oriented. HEENT: Normocephalic. Neck is supple. Pupils reactive. Nostrils clear. Oral cavity is moist. Neck reveals no JVD, carotid bruits, or thyromegaly. CHEST EXAMINATION: Trachea is central. Symmetrical expansion. Bibasilar diminished sounds. No rhonchi or wheezing.. CARDIAC: Normal S1, S2 with no gallops. No murmurs ABDOMEN: Soft. Bowel sounds normal. No organomegaly. No abdominal bruits. Extremities: reveal no edema. No clubbing or cyanosis Neurologically awake, alert, oriented x2-3 ..Able to move extremities while in bed. No gross focal deficits noted Skin: No rash or skin lesions. Psychiatric: Cooperative. Musculoskeletal: No joint swelling or deformity. Normal range of motion. - Labs CBC & Chem 7: 05/21/21 05:41 05/21/21 05:41 Labs: Abnormal Lab Results - Last 24 Hours (Table) 05/17/21 05/19/21 05/19/21 Range/Units 06:58 05:57 05:57 WBC 16.6 H (3.8-10.6) k/uL RBC 3.24 L (4.30-5.90) m/uL Hgb 9.9 L (13.0-17.5) gm/dL Hct 30.4 L (39.0-53.0) % Neutrophils # 13.0 H (1.3-7.7) k/uL Monocytes # 1.2 H (0-1.0) k/uL Est GFR (CKD-EPI)AfAm 58.5 L (60.0-200.0) Est GFR (CKD-EPI)NonAf 50.5 L (60.0-200.0) Glucose 111 H (70-110) mg/dL Calcium 8.3 L (8.7-10.3) mg/dL AST 75 H (14-35) U/L ALT 134 H (10-49) U/L Alkaline Phosphatase 149 H (41-126) U/L C-Reactive Protein 17.50 H (0.00-0.80) mg/dL Total Protein 5.2 L (6.2-8.2) g/dL Albumin 2.8 L (3.8-4.9) g/dL Albumin (PEP) 2.16 L (3.80-4.90) g/dL Albumin/Globulin Ratio 1.17 L (1.60-3.17) g/dL [id number] 0.58 H (0.10-0.40) g/dL Beta Globulins 0.43 L (0.60-1.30) g/dL Free [place] LC, Quant 5.18 H (0.33-1.94) mg/dL Free [place] LC, Quant 3.10 H (0.57-2.63) mg/dL Microbiology - Last 24 Hours (Table) 05/16/21 14:55 Blood Culture - Preliminary Blood No Growth after 72 hours 05/16/21 14:50 Blood Culture - Preliminary Blood No Growth after 72 hours Assessment and Plan Assessment: SIRS/leukocytosis, fever lactic acidosis Possible acute urinary tract infection with Sepsis Generalized weakness fatigue and weight loss. Lactic acidosis likely due to dehydration volume depletion and infection. improved. Acute kidney injury likely prerenal Hypovolemic hyponatremia Elevated liver enzymes Mild protein calorie malnutrition Hypertension Hyperlipidemia Coronary artery disease history of stent placement Hyperlipidemia History of [place] Previous history of smoking DVT prophylaxis with heparin subcu Plan: Patient will be continued on antibiotics in the form of ceftriaxone. negative urine culture and blood culture report. Oncology and ID is on board. Leukocytosis likely due to intermittent reaction. Hematology work-up was ordered. Flagyl was added for possible intra-abdominal infection. Follow-up inflammatory markers. COVID-19 test is negative. Continue with duo nebs and follow-up closely. Prognosis guarded at this time. PT OT will be consulted. Time with Patient: Greater than 30
--- NOTE | 2021-05-21 22:47 | P.PN ---
Subjective Progress Note Date: 05/20/21 Principal diagnosis: acute urinary tract infection with Sepsis Patient is a 85-year-old male with a known history of hypertension, hyperlipidemia, coronary artery disease history of stent placement, asthma, previous history of smoking and dementia/memory impairment was brought to the hospital by his . Patient was brought to the hospital due to generalized weakness fatigue and loss of weight for the past 2 weeks. As per his patient has been losing weight for about a month now. He was seen by his primary care physician and was found to have elevated liver enzymes and leukocytosis. Patient was started on empiric antibiotics in the form of Zithromax. Patient continues to be so he was brought to the hospital. Otherwise patient does not have any fever or chills. No cough or sputum production. No complaints of chest pain or shortness of breath. No abdominal pain. No nausea vomiting or diarrhea. Denies any loss of appetite. On admission T-max 100.2, blood pressure 121/63 pulse is 84 respiration 18 and pulse ox 95% on room air. Laboratory data showed WBC 22.9 hemoglobin 11.1 and platelets 325 lymphocytes 0.6 Coronavirus PCR not detected Sodium 135 potassium 4.0 chloride 102 bicarb is 21 BUN 41 and creatinine 1.41 lactic acid 3.7 AST 156 ALT 195 and alk phos 208 TSH 0.898 Urinalysis showed 1+ protein small leukocyte esterase and elevated WBCs. Chest x-ray showed no acute cardiopulmonary process CT of the abdomen pelvis showed moderate-sized fat-containing umbilical hernia measuring 6.2 cm there is mild fat stranding within the hernia sac that could represent prominent omental mesenteric vessels. Mild inflammation difficult to exclude. Delayed excretion of contrast from the kidneys. Left-sided colonic diverticulosis without acute diverticulitis. Mild to moderate circumferential bladder wall thickening could represent chronic bladder wall hypertrophy versus cystitis. There is prostatomegaly correlate her PSA level. EKG showed sinus rhythm with first-degree AV block. 05/17/2021 Patient is awake alert oriented x3. Lying in the bed comfortably. No complaints of chest pain or shortness of breath. Patient still having generalized weakness but feels better. Able to tolerate oral diet slowly. Patient is being current antibiotics involve ceftriaxone for urinary tract infection. ID is on board. Urine culture showed no growth. No nausea vomiting abdominal pain or diarrhea. No cough or sputum production. Laboratory data showed BUN 39.1 and creatinine 1.5 total bilirubin level improved to 0.3. WBC count improved to 16.2 and hemoglobin 10.2 and platelets 361. Discussed with the family at bedside in detail. PT OT will be consulted. 05/18/2021 Patient is currently resting in the bed. Awake alert and oriented today. Able to tolerate oral diet. Patient has been afebrile. No nausea vomiting or abdominal pain or diarrhea. No cough or sputum production. Denies any headache or dizziness. Laboratory showed BUN 28 and creatinine 1.3 and blood sugar is 104 liver enzymes are trending down. Bilirubin level is normalizing. Hepatitis panel is negative. Patient is being current on antibiotics in the form of ceftriaxone. Flagyl was added for possible intra-abdominal infection. Blood cultures and urine cultures are negative so far. ID and oncology is on board. 05/19/2021 Patient is currently resting in bed comfortably. No complaints of chest pain or shortness breath. No fever no chills. Patient has been afebrile. No nausea vomiting or diarrhea. Patient does have very poor appetite. Laboratory showed still leukocytosis with WBC count 16.6 and hemoglobin 9.9 and elevated liver enzymes and CRP. Procalcitonin level is 1.17. ID and oncology is on board. Leukocytosis likely due to infection as per oncology. Cultures have been negative so far. 05/20/2021 Patient is lying in the bed comfortably. Denies any complaints of abdominal pain. No complaints of nausea. Poor appetite. Patient was febrile last night with T-max 100.7. Currently afebrile. Saturating at room air. Laboratory data showed WBC 17.9 and hemoglobin 9.8 and neutrophils 14.5. Continued on antibiotics involve ceftriaxone and Flagyl. ID and oncology is on board. Current medications reviewed. Objective - Vital Signs Vital signs: Vital Signs Temp 98.6 F 05/20/21 12:33 Pulse 68 05/20/21 12:33 Resp 20 05/20/21 12:33 BP 128/64 05/20/21 12:33 Pulse Ox 96 05/20/21 12:33 Intake & Output 05/20/21 05/20/21 05/21/21 06:59 18:59 06:59 Intake Total 650 Balance 650 Intake: Intake, IV Titration 50 Amount cefTRIAXone 2 gm In 50 Sodium Chloride 0.9% 50 ml @ 100 mls/hr IVPB Q24HR [facility] Rx#:[id number] Oral 600 Other: Voiding Method Toilet Toilet # Voids 3 - Exam PHYSICAL EXAMINATION: Patient is lying in the bed comfortably, no acute distress, awake alert and oriented. HEENT: Normocephalic. Neck is supple. Pupils reactive. Nostrils clear. Oral cavity is moist. Neck reveals no JVD, carotid bruits, or thyromegaly. CHEST EXAMINATION: Trachea is central. Symmetrical expansion. Bibasilar diminished sounds. No rhonchi or wheezing.. CARDIAC: Normal S1, S2 with no gallops. No murmurs ABDOMEN: Soft. Bowel sounds normal. No organomegaly. No abdominal bruits. Extremities: reveal no edema. No clubbing or cyanosis Neurologically awake, alert, oriented x2-3 ..Able to move extremities while in bed. No gross focal deficits noted Skin: No rash or skin lesions. Psychiatric: Cooperative. Musculoskeletal: No joint swelling or deformity. Normal range of motion. - Labs CBC & Chem 7: 05/21/21 05:41 05/21/21 05:41 Labs: Abnormal Lab Results - Last 24 Hours (Table) 05/17/21 05/20/21 05/20/21 Range/Units 06:58 05:06 05:06 WBC (3.8-10.6) k/uL RBC (4.30-5.90) m/uL Hgb (13.0-17.5) gm/dL Hct (39.0-53.0) % Neutrophils # (1.3-7.7) k/uL ESR 95 H (0-20) mm/Hr Est GFR (CKD-EPI)NonAf (60.0-200.0) Glucose (70-110) mg/dL Calcium (8.7-10.3) mg/dL AST (14-35) U/L ALT (10-49) U/L Alkaline Phosphatase (41-126) U/L C-Reactive Protein (0.00-0.80) mg/dL Total Protein (6.2-8.2) g/dL Albumin (3.8-4.9) g/dL Albumin/Globulin Ratio (1.60-3.17) g/dL Methylmalonic Acid 0.45 H (<0.40) umol/L Procalcitonin 0.29 H (0.02-0.09) ng/mL 05/20/21 05/20/21 Range/Units 05:06 12:09 WBC 17.9 H (3.8-10.6) k/uL RBC 3.23 L (4.30-5.90) m/uL Hgb 9.8 L (13.0-17.5) gm/dL Hct 30.2 L (39.0-53.0) % Neutrophils # 14.5 H (1.3-7.7) k/uL ESR (0-20) mm/Hr Est GFR (CKD-EPI)NonAf 55.6 L (60.0-200.0) Glucose 117 H (70-110) mg/dL Calcium 8.4 L (8.7-10.3) mg/dL AST 55 H (14-35) U/L ALT 109 H (10-49) U/L Alkaline Phosphatase 135 H (41-126) U/L C-Reactive Protein 17.70 H (0.00-0.80) mg/dL Total Protein 5.2 L (6.2-8.2) g/dL Albumin 2.8 L (3.8-4.9) g/dL Albumin/Globulin Ratio 1.17 L (1.60-3.17) g/dL Methylmalonic Acid (<0.40) umol/L Procalcitonin (0.02-0.09) ng/mL Microbiology - Last 24 Hours (Table) 05/16/21 14:50 Blood Culture - Preliminary Blood No Growth after 96 hours 05/16/21 14:55 Blood Culture - Preliminary Blood No Growth after 96 hours Assessment and Plan Assessment: SIRS/leukocytosis, fever lactic acidosis Possible acute urinary tract infection with Sepsis Generalized weakness fatigue and weight loss. Lactic acidosis likely due to dehydration volume depletion and infection. improved. Acute kidney injury likely prerenal Hypovolemic hyponatremia Elevated liver enzymes Mild protein calorie malnutrition Hypertension Hyperlipidemia Coronary artery disease history of stent placement Hyperlipidemia History of [place] Previous history of smoking DVT prophylaxis with heparin subcu Plan: Patient will be continued on antibiotics in the form of ceftriaxone. negative urine culture and blood culture report. Oncology and ID is on board. Leukocytosis likely due to intermittent reaction. Hematology work-up was ordered. Flagyl was added for possible intra-abdominal infection. Follow-up inflammatory markers. COVID-19 test is negative. Continue with duo nebs and follow-up closely. Prognosis guarded at this time. PT OT will be consulted. Time with Patient: Greater than 30
--- NOTE | 2021-05-21 22:50 | P.PN ---
Subjective Progress Note Date: 05/21/21 Principal diagnosis: acute urinary tract infection with Sepsis Patient is a 85-year-old male with a known history of hypertension, hyperlipidemia, coronary artery disease history of stent placement, asthma, previous history of smoking and dementia/memory impairment was brought to the hospital by his . Patient was brought to the hospital due to generalized weakness fatigue and loss of weight for the past 2 weeks. As per his patient has been losing weight for about a month now. He was seen by his primary care physician and was found to have elevated liver enzymes and leukocytosis. Patient was started on empiric antibiotics in the form of Zithromax. Patient continues to be so he was brought to the hospital. Otherwise patient does not have any fever or chills. No cough or sputum production. No complaints of chest pain or shortness of breath. No abdominal pain. No nausea vomiting or diarrhea. Denies any loss of appetite. On admission T-max 100.2, blood pressure 121/63 pulse is 84 respiration 18 and pulse ox 95% on room air. Laboratory data showed WBC 22.9 hemoglobin 11.1 and platelets 325 lymphocytes 0.6 Coronavirus PCR not detected Sodium 135 potassium 4.0 chloride 102 bicarb is 21 BUN 41 and creatinine 1.41 lactic acid 3.7 AST 156 ALT 195 and alk phos 208 TSH 0.898 Urinalysis showed 1+ protein small leukocyte esterase and elevated WBCs. Chest x-ray showed no acute cardiopulmonary process CT of the abdomen pelvis showed moderate-sized fat-containing umbilical hernia measuring 6.2 cm there is mild fat stranding within the hernia sac that could represent prominent omental mesenteric vessels. Mild inflammation difficult to exclude. Delayed excretion of contrast from the kidneys. Left-sided colonic diverticulosis without acute diverticulitis. Mild to moderate circumferential bladder wall thickening could represent chronic bladder wall hypertrophy versus cystitis. There is prostatomegaly correlate her PSA level. EKG showed sinus rhythm with first-degree AV block. 05/17/2021 Patient is awake alert oriented x3. Lying in the bed comfortably. No complaints of chest pain or shortness of breath. Patient still having generalized weakness but feels better. Able to tolerate oral diet slowly. Patient is being current antibiotics involve ceftriaxone for urinary tract infection. ID is on board. Urine culture showed no growth. No nausea vomiting abdominal pain or diarrhea. No cough or sputum production. Laboratory data showed BUN 39.1 and creatinine 1.5 total bilirubin level improved to 0.3. WBC count improved to 16.2 and hemoglobin 10.2 and platelets 361. Discussed with the family at bedside in detail. PT OT will be consulted. 05/18/2021 Patient is currently resting in the bed. Awake alert and oriented today. Able to tolerate oral diet. Patient has been afebrile. No nausea vomiting or abdominal pain or diarrhea. No cough or sputum production. Denies any headache or dizziness. Laboratory showed BUN 28 and creatinine 1.3 and blood sugar is 104 liver enzymes are trending down. Bilirubin level is normalizing. Hepatitis panel is negative. Patient is being current on antibiotics in the form of ceftriaxone. Flagyl was added for possible intra-abdominal infection. Blood cultures and urine cultures are negative so far. ID and oncology is on board. 05/19/2021 Patient is currently resting in bed comfortably. No complaints of chest pain or shortness breath. No fever no chills. Patient has been afebrile. No nausea vomiting or diarrhea. Patient does have very poor appetite. Laboratory showed still leukocytosis with WBC count 16.6 and hemoglobin 9.9 and elevated liver enzymes and CRP. Procalcitonin level is 1.17. ID and oncology is on board. Leukocytosis likely due to infection as per oncology. Cultures have been negative so far. 05/20/2021 Patient is lying in the bed comfortably. Denies any complaints of abdominal pain. No complaints of nausea. Poor appetite. Patient was febrile last night with T-max 100.7. Currently afebrile. Saturating at room air. Laboratory data showed WBC 17.9 and hemoglobin 9.8 and neutrophils 14.5. Continued on antibiotics involve ceftriaxone and Flagyl. ID and oncology is on board. 05/21/2021 Patient has been afebrile overnight. Leukocytosis remains about the same at 17.2. No complaints of abdominal pain. No dysuria or hematuria. Total PSA level elevated at 5.9. Patient was also found to have increased prostate in the CT. Repeat urinalysis was ordered. Urology was consulted. Patient remains on antibiotics in the form of ceftriaxone and Flagyl. Discussed with the patient and his at bedside. No chest pain or shortness breath. No cough or sputum production. Current medications reviewed. Objective - Vital Signs Vital signs: Vital Signs Temp 98.3 F 05/21/21 20:37 Pulse 66 05/21/21 20:37 Resp 18 05/21/21 20:37 BP 141/57 05/21/21 20:37 Pulse Ox 97 05/21/21 20:37 Intake & Output 05/21/21 05/21/21 05/22/21 06:59 18:59 06:59 Intake Total 600 Balance 600 Intake: Oral 600 Other: Voiding Method Toilet Toilet Toilet # Voids 2 2 - Exam PHYSICAL EXAMINATION: Patient is lying in the bed comfortably, no acute distress, awake alert and oriented. HEENT: Normocephalic. Neck is supple. Pupils reactive. Nostrils clear. Oral cavity is moist. Neck reveals no JVD, carotid bruits, or thyromegaly. CHEST EXAMINATION: Trachea is central. Symmetrical expansion. Bibasilar diminished sounds. No rhonchi or wheezing.. CARDIAC: Normal S1, S2 with no gallops. No murmurs ABDOMEN: Soft. Bowel sounds normal. No organomegaly. No abdominal bruits. Extremities: reveal no edema. No clubbing or cyanosis Neurologically awake, alert, oriented x2-3 ..Able to move extremities while in bed. No gross focal deficits noted Skin: No rash or skin lesions. Psychiatric: Cooperative. Musculoskeletal: No joint swelling or deformity. Normal range of motion. - Labs CBC & Chem 7: 05/21/21 05:41 05/21/21 05:41 Labs: Abnormal Lab Results - Last 24 Hours (Table) 05/21/21 05/21/21 05/21/21 Range/Units 05:41 05:41 18:06 WBC 17.6 H (3.8-10.6) k/uL RBC 3.11 L (4.30-5.90) m/uL Hgb 9.5 L (13.0-17.5) gm/dL Hct 29.4 L (39.0-53.0) % Neutrophils # 13.5 H (1.3-7.7) k/uL Monocytes # 1.2 H (0-1.0) k/uL Eosinophils # 0.8 H (0-0.7) k/uL Est GFR (CKD-EPI)NonAf 56.2 L (60.0-200.0) Glucose 111 H (70-110) mg/dL Calcium 8.4 L (8.7-10.3) mg/dL Urine Protein Trace H (Negative) Ur Leukocyte Esterase Small H (Negative) Urine Mucus Rare H (None) /hpf Microbiology - Last 24 Hours (Table) 05/16/21 14:50 Blood Culture - Preliminary Blood No Growth after 120 hours 05/16/21 14:55 Blood Culture - Preliminary Blood No Growth after 120 hours Assessment and Plan Assessment: SIRS/leukocytosis, fever lactic acidosis Enlarged prostate and elevated PSA level Possible acute urinary tract infection with Sepsis Generalized weakness fatigue and weight loss and loss of appetite. Lactic acidosis likely due to dehydration volume depletion and infection. imp roved. Acute kidney injury likely prerenal Hypovolemic hyponatremia Elevated liver enzymes Mild protein calorie malnutrition Hypertension Hyperlipidemia Coronary artery disease history of stent placement Hyperlipidemia History of [place] Previous history of smoking DVT prophylaxis with heparin subcu Plan: Patient will be continued on antibiotics in the form of ceftriaxone and flagyl. negative urine culture and blood culture report. Urology was consulted due to elevated PSA level. Oncology and ID is on board. Leukocytosis likely due to intermittent reaction. Hematology work-up was ordered. Flagyl was added for possible intra-abdominal infection. Follow-up inflammatory markers. COVID-19 test is negative. Continue with duo nebs and follow-up closely. Prognosis guarded at this time. PT OT will be consulted. Time with Patient: Greater than 30
[2021-05-22 04:49] LABS: Gliadin AB IgA, Deaminated NEGATIVE (NEGATIVE); Gliadin AB IgA, Unit <0.2 U/mL; Gliadin AB IgG, Deaminated NEGATIVE (NEGATIVE)
[2021-05-22 06:42] LABS: HCT 31.5 % (39.0-53.0); HGB 10.2 gm/dL (13.0-17.5); MCH 30.7 pg (25.0-35.0); MCHC 32.3 g/dL (31.0-37.0); MCV 94.9 fL (80.0-100.0); Mean Platelet Volume 8.1; Platelet Count 465 k/uL (150-450); RBC 3.32 m/uL (4.30-5.90); RDW 12.8 % (11.5-15.5); WBC 17.5 k/uL (3.8-10.6)
--- NOTE | 2021-05-22 07:13 | P.GSCN ---
History of Present Illness Consult date: 05/22/21 History of present illness: I was asked to see this pleasant 85-year-old gentleman who is in the hospital with a fever of unknown origin lethargy and fatigue. Apparently I was asked to see for an elevated PSA. The patient is interviewed at the bedside and his answers are appropriate. The patient has never seen a urologist. He is not aware of the PSA blood test. The only PSA that I see on the chart is from July 2020 and it is at 3.5 which were 85 is quite normal. The patient had a computed tomography scan of the abdomen identifying an enlarged prostate which is quite nonspecific as CT is not a great imaging tool for the prostate. The patient denies difficulty with urination. He does not have excessive nighttime urination. He denies any urinary tract infections. He denies dysuria or hematuria frequency or urgency. There is no incontinence. He has no known family history of prostate problems. He has not had a rectal examination since the [employer]. The patient's urinalysis on admission was nonspecific. The urine culture was negative. Review of Systems All systems: negative - Constitutional Denies fever, Denies weight loss - EENT Eyes: denies blurred vision Ears, nose, mouth and throat: Denies dysphagia - Cardiovascular Denies chest pain, Denies shortness of breath - Respiratory Denies cough, Denies 7 - Gastrointestinal Reports as per HPI - Genitourinary Denies dysuria, Denies hematuria - Integumentary Denies rash, Denies unusual bruising - Neurological Denies headaches, Denies syncope - Hematologic/Lymphatic Denies easy bleeding, Denies easy bruising Past Medical History Past Medical History: Asthma, Hyperlipidemia, Hypertension, Myocardial Infarction ([place]) Last Myocardial Infarction Date:: 1999 History of Any Multi-Drug Resistant Organisms: None Reported Past Surgical History: Heart Catheterization With Stent, Joint Replacement Additional Past Surgical History / Comment(s): knee replacement, left wrist surgery 2019 Date of Last Stent Placement:: 1999 Past Psychological History: No Psychological Hx Reported Additional Psychological History / Comment(s): Memory impairment Smoking Status: Former smoker Past Alcohol Use History: Occasional Past Drug Use History: None Reported - Past Family History Father Family Medical History: Memory Impairment Mother Additional Family Medical History / Comment(s): Kidney cancer - at age 36 Medications and Allergies Home Medications Medication Instructions Recorded Confirmed Type Aspirin EC [Ecotrin Low Dose] 81 mg PO DAILY 05/16/21 05/16/21 History Azithromycin [Zithromax Z-pack (6 See Taper PO DAILY 05/16/21 05/16/21 History tabs)] Donepezil [Aricept] 5 mg PO BID 05/16/21 05/16/21 History Enalapril/Hydrochlorothiazide 1 tab PO DAILY 05/16/21 05/16/21 History [Enalapril/Hydrochlorothiazide 10-25 mg Tablet] Fluticasone Propion/Salmeterol 1 puff INHALATION RT-DAILY 05/16/21 05/16/21 History [Wixela 250-50 Inhub] Memantine [Namenda] 10 mg PO BID 05/16/21 05/16/21 History Montelukast [Singulair] 10 mg PO DAILY 05/16/21 05/16/21 History Nitroglycerin Sl Tabs [Nitrostat] 0.4 mg SUBLINGUAL Q5M PRN 05/16/21 05/16/21 History Simvastatin [Zocor] 40 mg PO HS 05/16/21 05/16/21 History Vit C/E/Zn/Coppr/Lutein/Zeaxan 1 cap PO BID 05/16/21 05/16/21 History [Preservision Areds 2 Softgel] Zolpidem [Ambien] 5 mg PO HS PRN 05/16/21 05/16/21 History Allergies Allergy/AdvReac Type Severity Reaction Status Date / Time No Known Allergies Allergy Verified 05/16/21 13:16 Surgical - Exam Vital Signs Temp Pulse Resp BP Pulse Ox 100.8 F H 84 18 121/63 95 05/16/21 12:22 05/16/21 12:22 05/16/21 12:22 05/16/21 12:22 05/16/21 12:22 - General well developed, well nourished - Eyes PERRL - ENT no hearing loss - Neck trachea midline - Respiratory normal expansion, normal respiratory effort - Cardiovascular Rhythm: regular - Abdomen Abdomen: soft, non tender - Genitourinary The prostate is 30-40 g soft and benign. normal penis with no external lesions, testicles present - Integumentary no rash, no growths - Neurologic normal coordination, normal sensation - Musculoskeletal normal posture - Psychiatric oriented to time, oriented to person, oriented to place, speech is normal, memory intact Results - Labs 05/22/21 06:04 05/21/21 05:41 Abnormal Lab Results - Last 24 Hours (Table) 05/21/21 05/21/21 05/22/21 Range/Units 05:41 18:06 06:04 WBC 17.5 H (3.8-10.6) k/uL RBC 3.32 L (4.30-5.90) m/uL Hgb 10.2 L (13.0-17.5) gm/dL Hct 31.5 L (39.0-53.0) % Plt Count 465 H (150-450) k/uL Neutrophils # 13.7 H (1.3-7.7) k/uL Monocytes # 1.2 H (0-1.0) k/uL Eosinophils # 0.8 H (0-0.7) k/uL Est GFR (CKD-EPI)NonAf 56.2 L (60.0-200.0) Glucose 111 H (70-110) mg/dL Calcium 8.4 L (8.7-10.3) mg/dL Urine Protein Trace H (Negative) Ur Leukocyte Esterase Small H (Negative) Urine Mucus Rare H (None) /hpf Microbiology - Last 24 Hours (Table) 05/16/21 14:50 Blood Culture - Preliminary Blood No Growth after 120 hours 05/16/21 14:55 Blood Culture - Preliminary Blood No Growth after 120 hours Diabetes panel 05/21/21 Range/Units 05:41 Sodium 137 (135-145) mmol/L Potassium 4.0 (3.5-5.5) mmol/L Chloride 102 (96-109) mmol/L Carbon Dioxide 24.3 (21.6-31.8) mmol/L BUN 19.5 (9.0-27.0) mg/dL Creatinine 1.2 (0.6-1.5) mg/dL Glucose 111 H (70-110) mg/dL Calcium 8.4 L (8.7-10.3) mg/dL Calcium panel 05/21/21 Range/Units 05:41 Calcium 8.4 L (8.7-10.3) mg/dL Pituitary panel 05/21/21 Range/Units 05:41 Sodium 137 (135-145) mmol/L Potassium 4.0 (3.5-5.5) mmol/L Chloride 102 (96-109) mmol/L Carbon Dioxide 24.3 (21.6-31.8) mmol/L BUN 19.5 (9.0-27.0) mg/dL Creatinine 1.2 (0.6-1.5) mg/dL Glucose 111 H (70-110) mg/dL Calcium 8.4 L (8.7-10.3) mg/dL Adrenal panel 05/21/21 Range/Units 05:41 Sodium 137 (135-145) mmol/L Potassium 4.0 (3.5-5.5) mmol/L Chloride 102 (96-109) mmol/L Carbon Dioxide 24.3 (21.6-31.8) mmol/L BUN 19.5 (9.0-27.0) mg/dL Creatinine 1.2 (0.6-1.5) mg/dL Glucose 111 H (70-110) mg/dL Calcium 8.4 L (8.7-10.3) mg/dL - Imaging CT scan - abdomen: report reviewed, image reviewed CT scan - pelvis: report reviewed, image reviewed Assessment and Plan Assessment: Impression: Fever of unknown origin. Abnormal prostate exam on computed tomography scan (nonspecific) normal urologic history and normal prostate exam Recommendations: Based on his history examination and previous PSA I do not think the prostate has any bearing on the present admission. I am not Concerned for any clinical prostate cancer based on examination and symptoms. At this point in time I do not think further urologic evaluation is indicated.
--- NOTE | 2021-05-22 08:28 | US ---
EXAMINATION TYPE: US abdomen limited DATE OF EXAM: 05/22/2021 COMPARISON: CT CLINICAL HISTORY: Elevated Liver Enzymes. Fever of unknown origin EXAM MEASUREMENTS: Liver Length: 16.9 cm Gallbladder Wall: 0.2 cm CBD: 0.5 cm Right Kidney: 10.9 x 4.8 x 4.4 cm Pancreas: head seen with mid and tail gassed out Liver: wnl Gallbladder: wnl Evidence for sonographic Benjamin's sign: no CBD: wnl Right Kidney: small lateral cortical cyst seen = 0.9 x 0.5 x 0.8cm. IMPRESSION: 1. No suspicious acute changes. 2. Mild hepatomegaly. 3. Tiny cortical renal cyst right kidney
[2021-05-22] MEDS: MEMANTINE 10 MG TAB PO SCH ×2 (08:31→20:49)
[2021-05-22] MEDS: FAMOTIDINE 20 MG TAB PO SCH ×2 (08:32→20:50)
[2021-05-22] MEDS: metroNIDAZOLE 500 MG TAB PO SCH ×3 (08:33→20:50)
[2021-05-22] MEDS: MONTELUKAST 10 MG TAB PO SCH (08:33)
[2021-05-22] MEDS: HEPARIN SODIUM,PORCINE/PF 5,000 UNIT/0.5 ML SYRINGE SQ SCH ×2 (08:33→20:25)
[2021-05-22] MEDS: FOLIC ACID 1 MG TAB PO SCH (08:33)
[2021-05-22] MEDS: CYANOCOBALAMIN 500 MCG TAB PO SCH (08:33)
[2021-05-22] MEDS: ASPIRIN 81 MG PO SCH (08:33)
[2021-05-22] MEDS: DONEPEZIL 5 MG TAB PO SCH ×2 (08:33→20:50)
[2021-05-22 11:17] LABS: African American GFR (CKD) 71.6 (60.0-200.0); Anion Gap 11.6 mmol/L (4.00-12.00); BUN/Creat Ratio 16.45 Ratio (12.00-20.00); Blood Urea Nitrogen 18.1 mg/dL (9.0-27.0); Calcium 8.7 mg/dL (8.7-10.3); Carbon Dioxide 24.4 mmol/L (21.6-31.8); Non-African American GFR(CKD) 61.8 (60.0-200.0); Potassium 4.8 mmol/L (3.5-5.5)
[2021-05-22] MEDS: FLUCONAZOLE 100 MG TAB PO SCH (14:56)
--- NOTE | 2021-05-22 18:21 | P.PN ---
Subjective Progress Note Date: 05/22/21 Principal diagnosis: UTI Sepsis Patient is on day 5 abx and leukocytosis perisists, anemia stable. Spoke with patient on phone. She is concerned about his memory loss and lack of appetite. Objective - Vital Signs Vital signs: Vital Signs Temp 97.9 F 05/22/21 13:00 Pulse 78 05/22/21 13:00 Resp 16 05/22/21 13:00 BP 117/74 05/22/21 13:00 Pulse Ox 96 05/22/21 13:00 Intake & Output 05/21/21 05/22/21 05/22/21 18:59 06:59 18:59 Intake Total 400 Balance 400 Intake: Oral 400 Other: Voiding Method Toilet Toilet Toilet # Voids 2 2 - Exam A:ert [place] Neck: Supple Lungs: Diminished bbases Heart: Irr Abdomen: Soft Ext: Pedal - Labs CBC & Chem 7: 05/22/21 06:04 05/22/21 06:04 Labs: Abnormal Lab Results - Last 24 Hours (Table) 05/21/21 05/22/21 Range/Units 18:06 06:04 WBC 17.5 H (3.8-10.6) k/uL RBC 3.32 L (4.30-5.90) m/uL Hgb 10.2 L (13.0-17.5) gm/dL Hct 31.5 L (39.0-53.0) % Plt Count 465 H (150-450) k/uL Neutrophils # 13.7 H (1.3-7.7) k/uL Monocytes # 1.2 H (0-1.0) k/uL Eosinophils # 0.8 H (0-0.7) k/uL Urine Protein Trace H (Negative) Ur Leukocyte Esterase Small H (Negative) Urine Mucus Rare H (None) /hpf Microbiology - Last 24 Hours (Table) 05/16/21 14:50 Blood Culture - Final Blood No Growth after 144 hours 05/16/21 14:55 Blood Culture - Final Blood No Growth after 144 hours Assessment and Plan (1) Normocytic anemia Current Visit: Yes Status: Acute Code(s): D64.9 - ANEMIA, UNSPECIFIED SNOMED Code(s): 314663303 (2) Fever of unknown origin Current Visit: Yes Status: Acute Code(s): R50.9 - FEVER, UNSPECIFIED SNOMED Code(s): 9091588 (3) Leukocytosis Current Visit: Yes Status: Acute Code(s): D72.829 - ELEVATED WHITE BLOOD CELL COUNT, UNSPECIFIED SNOMED Code(s): 138301807 (4) SIRS (systemic inflammatory response syndrome) Current Visit: Yes Status: Acute Code(s): R65.10 - SIRS OF NON-INFECTIOUS ORIGIN W/O ACUTE ORGAN DYSFUNCTION SNOMED Code(s): 302909908 (5) Transaminitis Current Visit: Yes Status: Acute Code(s): R74.01 - ELEVATION OF LEVELS OF LIVER TRANSAMINASE LEVELS SNOMED Code(s): 372164161 Plan: Assessment and Recommendations: Acute Leukocytosis and Normocytic Anemia: - Likely secondary to acute inflammatory/infectious process, ?Cystitis - Not improving after antibiotic. Fever: - ID is following - Resolved - Secondary to UTI and Sepsis Elevated Liver Enzymes: Improving - Medication/Infection? - Monitor coags UTI: - Improving Hematological work-up negative todate. - Nutrient deficiencies with Folate and B12 continue ordered supplementation Enlarged Prostate and Increased PSA: - With picture of cystitis would recommend Urology evaluation - Discussed with primary team He has had covid testing and been negative, this cannot rule out post infection: - Elevated LFTs, Ferritin, loss of appetite. - Elevated Inflammation CRP, ESR Further check: - Immunoglobulins, Immunofixations, and pathology Review. - Urologist is assessing for prosititis versus enlarged prostate - Since increasing systemic inflammatory response is not improving will check post covid antibodies and MPL Long discussion greater than 35 minutes with patient .
[2021-05-22 19:53] LABS: Lymphocytes # (M) 1.75 k/uL (1.0-4.8); Metamyelocytes # (M) 0.18 k/uL (0); Metamyelocytes % 1 %; Monocytes # (M) 1.58 k/uL (0-1.0); Myelocytes # (M) 0.35 k/uL (0); Myelocytes % 2 %; Neutrophils % (M) 72 %; Nucleated Red Blood Cells 0 /100 WBC (0-0); Total Cells Counted 200
[2021-05-22 19:54] LABS: Poikilocytosis (M) Present
[2021-05-22] MEDS: ZOLPIDEM 5 MG TAB PO PRN (20:50)
[2021-05-22 22:52] LABS: Appearance,Urine Clear (Clear); Bacteria,Urine Rare /hpf; Bilirubin,Urine Negative (Negative); Blood,Urine Negative (Negative); Color,Urine Yellow; Glucose,Urine (UA) Negative (Negative); Ketones,Urine Negative (Negative); Leukocyte Esterase,Urine Small (Negative); Mucus,Urine Rare /hpf; Nitrite,Urine Negative (Negative); PH, Urine 5.5 (5.0-8.0); Protein,Urine Trace (Negative); RBC,Urine <1 /hpf (0-5); Specific Gravity,Urine 1.015 (1.001-1.035); Urobilinogen,Urine <2.0 mg/dL (<2.0); WBC,Urine 1 /hpf (0-5)
--- NOTE | 2021-05-22 23:12 | P.PN ---
Subjective Progress Note Date: 05/22/21 Principal diagnosis: acute urinary tract infection with Sepsis Patient is a 85-year-old male with a known history of hypertension, hyperlipidemia, coronary artery disease history of stent placement, asthma, previous history of smoking and dementia/memory impairment was brought to the hospital by his . Patient was brought to the hospital due to generalized weakness fatigue and loss of weight for the past 2 weeks. As per his patient has been losing weight for about a month now. He was seen by his primary care physician and was found to have elevated liver enzymes and leukocytosis. Patient was started on empiric antibiotics in the form of Zithromax. Patient continues to be so he was brought to the hospital. Otherwise patient does not have any fever or chills. No cough or sputum production. No complaints of chest pain or shortness of breath. No abdominal pain. No nausea vomiting or diarrhea. Denies any loss of appetite. On admission T-max 100.2, blood pressure 121/63 pulse is 84 respiration 18 and pulse ox 95% on room air. Laboratory data showed WBC 22.9 hemoglobin 11.1 and platelets 325 lymphocytes 0.6 Coronavirus PCR not detected Sodium 135 potassium 4.0 chloride 102 bicarb is 21 BUN 41 and creatinine 1.41 lactic acid 3.7 AST 156 ALT 195 and alk phos 208 TSH 0.898 Urinalysis showed 1+ protein small leukocyte esterase and elevated WBCs. Chest x-ray showed no acute cardiopulmonary process CT of the abdomen pelvis showed moderate-sized fat-containing umbilical hernia measuring 6.2 cm there is mild fat stranding within the hernia sac that could represent prominent omental mesenteric vessels. Mild inflammation difficult to exclude. Delayed excretion of contrast from the kidneys. Left-sided colonic diverticulosis without acute diverticulitis. Mild to moderate circumferential bladder wall thickening could represent chronic bladder wall hypertrophy versus cystitis. There is prostatomegaly correlate her PSA level. EKG showed sinus rhythm with first-degree AV block. 05/17/2021 Patient is awake alert oriented x3. Lying in the bed comfortably. No complaints of chest pain or shortness of breath. Patient still having generalized weakness but feels better. Able to tolerate oral diet slowly. Patient is being current antibiotics involve ceftriaxone for urinary tract infection. ID is on board. Urine culture showed no growth. No nausea vomiting abdominal pain or diarrhea. No cough or sputum production. Laboratory data showed BUN 39.1 and creatinine 1.5 total bilirubin level improved to 0.3. WBC count improved to 16.2 and hemoglobin 10.2 and platelets 361. Discussed with the family at bedside in detail. PT OT will be consulted. 05/18/2021 Patient is currently resting in the bed. Awake alert and oriented today. Able to tolerate oral diet. Patient has been afebrile. No nausea vomiting or abdominal pain or diarrhea. No cough or sputum production. Denies any headache or dizziness. Laboratory showed BUN 28 and creatinine 1.3 and blood sugar is 104 liver enzymes are trending down. Bilirubin level is normalizing. Hepatitis panel is negative. Patient is being current on antibiotics in the form of ceftriaxone. Flagyl was added for possible intra-abdominal infection. Blood cultures and urine cultures are negative so far. ID and oncology is on board. 05/19/2021 Patient is currently resting in bed comfortably. No complaints of chest pain or shortness breath. No fever no chills. Patient has been afebrile. No nausea vomiting or diarrhea. Patient does have very poor appetite. Laboratory showed still leukocytosis with WBC count 16.6 and hemoglobin 9.9 and elevated liver enzymes and CRP. Procalcitonin level is 1.17. ID and oncology is on board. Leukocytosis likely due to infection as per oncology. Cultures have been negative so far. 05/20/2021 Patient is lying in the bed comfortably. Denies any complaints of abdominal pain. No complaints of nausea. Poor appetite. Patient was febrile last night with T-max 100.7. Currently afebrile. Saturating at room air. Laboratory data showed WBC 17.9 and hemoglobin 9.8 and neutrophils 14.5. Continued on antibiotics involve ceftriaxone and Flagyl. ID and oncology is on board. 05/21/2021 Patient has been afebrile overnight. Leukocytosis remains about the same at 17.2. No complaints of abdominal pain. No dysuria or hematuria. Total PSA level elevated at 5.9. Patient was also found to have increased prostate in the CT. Repeat urinalysis was ordered. Urology was consulted. Patient remains on antibiotics in the form of ceftriaxone and Flagyl. Discussed with the patient and his at bedside. No chest pain or shortness breath. No cough or sputum production. 05/22/2021 Patient is able to ambulate. Awake alert and oriented x3. Afebrile last 48 hours. Currently maintained on antibiotics in the form of ceftriaxone and Flagyl. Still having leukocytosis with WBC count 17.5 today. COVID-19 antibodies and immunofixation, immunoglobulin levels were ordered.. Urology has seen the patient and unlikely symptoms are due to prostatitis. No further intervention was recommended. ID and oncology is on board. Laboratory data showed WBC 17.5 hemoglobin 10.1 platelets 460 5 repeat urinalysis is negative for infection. Other hematologic work-up is negative. Patient is still having lack of appetite. Current medications reviewed. Objective - Vital Signs Vital signs: Vital Signs Temp 97.9 F 05/22/21 13:00 Pulse 70 05/22/21 19:41 Resp 18 05/22/21 20:10 BP 117/74 05/22/21 13:00 Pulse Ox 96 05/22/21 13:00 Intake & Output 05/22/21 05/22/21 05/23/21 06:59 18:59 06:59 Intake Total 400 50 Balance 400 50 Intake: Intake, IV Titration 50 Amount cefTRIAXone 2 gm In 50 Sodium Chloride 0.9% 50 ml @ 100 mls/hr IVPB Q24HR [facility] Rx#:[id number] Oral 400 Other: Voiding Method Toilet Toilet Toilet # Voids 2 - Exam PHYSICAL EXAMINATION: Patient is lying in the bed comfortably, no acute distress, awake alert and oriented. HEENT: Normocephalic. Neck is supple. Pupils reactive. Nostrils clear. Oral cavity is moist. Neck reveals no JVD, carotid bruits, or thyromegaly. CHEST EXAMINATION: Trachea is central. Symmetrical expansion. Bibasilar diminished sounds. No rhonchi or wheezing.. CARDIAC: Normal S1, S2 with no gallops. No murmurs ABDOMEN: Soft. Bowel sounds normal. No organomegaly. No abdominal bruits. Extremities: reveal no edema. No clubbing or cyanosis Neurologically awake, alert, oriented x2-3 ..Able to move extremities while in bed. No gross focal deficits noted Skin: No rash or skin lesions. Psychiatric: Cooperative. Musculoskeletal: No joint swelling or deformity. Normal range of motion. - Labs CBC & Chem 7: 05/22/21 06:04 05/22/21 06:04 Labs: Abnormal Lab Results - Last 24 Hours (Table) 05/22/21 05/22/21 Range/Units 06:04 22:24 WBC 17.5 H (3.8-10.6) k/uL RBC 3.32 L (4.30-5.90) m/uL Hgb 10.2 L (13.0-17.5) gm/dL Hct 31.5 L (39.0-53.0) % Plt Count 465 H (150-450) k/uL Neutrophils # (Manual) 12.60 H (1.3-7.7) k/uL Monocytes # (Manual) 1.58 H (0-1.0) k/uL Eosinophils # (Manual) 1.40 H (0-0.7) k/uL Metamyelocytes # (Man) 0.18 H (0) k/uL Myelocytes # (Manual) 0.35 H (0) k/uL Urine Protein Trace H (Negative) Ur Leukocyte Esterase Small H (Negative) Urine Bacteria Rare H (None) /hpf Urine Mucus Rare H (None) /hpf Microbiology - Last 24 Hours (Table) 05/16/21 14:50 Blood Culture - Final Blood No Growth after 144 hours 05/16/21 14:55 Blood Culture - Final Blood No Growth after 144 hours Assessment and Plan Assessment: SIRS/leukocytosis, fever lactic acidosis Enlarged prostate and elevated PSA level Possible acute urinary tract infection with Sepsis Generalized weakness fatigue and weight loss and loss of appetite. Lactic acidosis likely due to dehydration volume depletion and infection. improved. Acute kidney injury likely prerenal Hypovolemic hyponatremia Elevated liver enzymes Mild protein calorie malnutrition Hypertension Hyperlipidemia Coronary artery disease history of stent placement Hyperlipidemia History of [place] Previous history of smoking DVT prophylaxis with heparin subcu Plan: Patient will be continued on antibiotics in the form of ceftriaxone and flagyl. negative urine culture and blood culture report. Urology was consulted due to elevated PSA level. Oncology and ID is on board. Leukocytosis likely due to Inflammatory reaction. Hematology work-up was ordered. Flagyl was added for possible intra-abdominal infection. Follow-up inflammatory markers. COVID-19 test is negative. Continue with duo nebs and follow-up closely. Prognosis guarded at this time. PT OT will be consulted. Time with Patient: Greater than 30
--- NOTE | 2021-05-22 23:17 | PN ---
PROGRESS NOTE DATE OF SERVICE: 05/22/2021 REASON FOR FOLLOWUP: Leukocytosis and a fever. INTERVAL HISTORY: The patient is afebrile. The patient is feeling slightly better today. He is breathing comfortably on room air. The patient denies having any chest pain, shortness of breath or cough. No abdominal pain or diarrhea. PHYSICAL EXAMINATION: Blood pressure 117/74 with a pulse of 78, temperature 97.9. He is 96% on room air. General description is an elderly male lying in bed in no distress. Respiratory system: Unlabored breathing, decreased breath sounds on the base. No wheeze. Heart S1, S2. Regular rate and rhythm. Abdomen soft, no tenderness. Extremities no edema of the feet. LABS: Hemoglobin is 10.1, white count 17.5, creatinine is 1.1. DIAGNOSTIC IMPRESSION AND PLAN: Patient admitted to hospital with fever, did have leukocytosis and this patient seems to have some clinical response to Rocephin and Flagyl. However, the white count is not trending down. Diflucan was added yesterday. Patient even had a WBC scan that was negative. CT of abdomen and pelvis did not show any acute abnormality. We will continue with the current antibiotics. Repeat tomorrow and continue with supportive care. MMODL / IJN: [id number] /
[2021-05-23 07:24] LABS: Basophils # (A) 0.1 k/uL (0-0.2); Basophils % (A) 0 %; Eosinophils # (A) 0.5 k/uL (0-0.7); Eosinophils % (A) 3 %; HCT 29.9 % (39.0-53.0); HGB 9.5 gm/dL (13.0-17.5); Lymphocytes # (A) 1.7 k/uL (1.0-4.8); Lymphocytes % (A) 11 %; MCHC 31.9 g/dL (31.0-37.0); Mean Platelet Volume 7.9; Monocytes # (A) 1.1 k/uL (0-1.0); Monocytes % (A) 7 %; Neutrophils # (A) 12.8 k/uL (1.3-7.7); Neutrophils % (A) 77 %; Platelet Count 468 k/uL (150-450); RBC 3.18 m/uL (4.30-5.90); RDW 12.9 % (11.5-15.5); WBC 16.5 k/uL (3.8-10.6)
[2021-05-23 08:25] LABS: Immunoglobulin M 27.4 mg/dL (40.0-280.0)
[2021-05-23] MEDS: ASPIRIN 81 MG PO SCH (08:49)
[2021-05-23] MEDS: DONEPEZIL 5 MG TAB PO SCH (08:50)
[2021-05-23] MEDS: FOLIC ACID 1 MG TAB PO SCH (08:50)
[2021-05-23] MEDS: CYANOCOBALAMIN 500 MCG TAB PO SCH (08:50)
[2021-05-23] MEDS: FAMOTIDINE 20 MG TAB PO SCH (08:50)
[2021-05-23] MEDS: MONTELUKAST 10 MG TAB PO SCH (08:51)
[2021-05-23] MEDS: HEPARIN SODIUM,PORCINE/PF 5,000 UNIT/0.5 ML SYRINGE SQ SCH (08:51)
[2021-05-23] MEDS: MEMANTINE 10 MG TAB PO SCH (08:51)
[2021-05-23] MEDS: metroNIDAZOLE 500 MG TAB PO SCH (08:51)
[2021-05-23 13:10] VITALS: BP 126/69; PULSE 64; RESP 17; TEMP 98.5
[2021-05-23] MEDS: FLUCONAZOLE 100 MG TAB PO SCH (14:13)
--- NOTE | 2021-05-23 18:37 | PN ---
PROGRESS NOTE DATE OF SERVICE: 05/23/2021 REASON FOR FOLLOWUP: Fever and elevated white count. INTERVAL HISTORY: The patient is afebrile. The patient has been breathing comfortably, feeling better, though. No chest pain or shortness of breath or cough. No abdominal pain or diarrhea. PHYSICAL EXAMINATION: Blood pressure 126/69, pulse of 64, temperature 98.5. He is 95% on room air. General description is an elderly male lying in bed in no distress. Respiratory system: Unlabored breathing, clear to auscultation anteriorly. Heart S1, S2. Regular rate and rhythm. Abdomen soft, no tenderness. LABS: White count is slightly down to 16.5. CRP was 12.20. DIAGNOSTIC IMPRESSION AND PLAN: Patient with a fever, elevated white count with possible cystitis for abdominal source. The patient did have elevated liver enzymes but no evidence of any cholecystitis. The patient's cultures have been negative and white count is trending down. Finishing therapy with oral Augmentin and Diflucan for a week with close outpatient followup. Discussed with the admitting physician. MMSAULOL / GOKULN: [id number] /
== END 2021-05-23 16:01 | disposition home health service (06) | DRG 872 ==
LOC: EC 12:08 → 5NMEDONC 15:56
PROVIDERS: ADMIT Internal Medicine; ATTEND Internal Medicine
DX: A41.9 Sepsis, unspecified organism (principal); E44.1 Mild protein-calorie malnutrition; E87.1 Hypo-osmolality and hyponatremia; E87.2 Acidosis; N17.9 Acute kidney failure, unspecified; N30.00 Acute cystitis without hematuria; D64.9 Anemia, unspecified; E78.5 Hyperlipidemia, unspecified; E86.0 Dehydration; E86.1 Hypovolemia; F03.90 Unspecified dementia, unspecified severity, without behavioral disturbance, psychotic disturbance, mood disturbance, and anxiety; I10 Essential (primary) hypertension; I25.10 Atherosclerotic heart disease of native coronary artery without angina pectoris; I25.2 Old myocardial infarction; I44.0 Atrioventricular block, first degree; Z68.31 Body mass index [BMI] 31.0-31.9, adult; I45.10 Unspecified right bundle-branch block; J45.909 Unspecified asthma, uncomplicated; K42.9 Umbilical hernia without obstruction or gangrene; E86.9 Volume depletion, unspecified; R63.4 Abnormal weight loss; K57.30 Diverticulosis of large intestine without perforation or abscess without bleeding; K57.90 Diverticulosis of intestine, part unspecified, without perforation or abscess without bleeding; R74.01 Elevation of levels of liver transaminase levels; N40.0 Benign prostatic hyperplasia without lower urinary tract symptoms; Z20.822 Contact with and (suspected) exposure to COVID-19; Z79.82 Long term (current) use of aspirin; Z79.899 Other long term (current) drug therapy; Z80.51 Family history of malignant neoplasm of kidney; Z87.891 Personal history of nicotine dependence; Z96.659 Presence of unspecified artificial knee joint; Z98.890 Other specified postprocedural states; Z95.5 Presence of coronary angioplasty implant and graft
CPT/HCPCS: 36415; 71046; 74177; 76705; 78306; 80048; 80053; 80074; 81001; 81206; 82607; 82668; 82728; 82746; 82784; 83010; 83516; 83540; 83550; 83605; 83615; 83735; 83883; 83921; 84145; 84153; 84154; 84165; 84443; 84484; 85025; 85045; 85610; 85652; 85730; 86038; 86140; 86334; 86431; 86769; 87040; 87086; 87635; 93005; 96360; 96361; 99285

== ENCOUNTER 2021-05-31 10:29 | Emergency (ER) | payer MEDICARE ==
[2021-05-31 11:09] VITALS: TEMP 99.4
--- NOTE | 2021-05-31 12:35 | XR ---
EXAMINATION TYPE: XR ankle complete LT DATE OF EXAM: 05/31/2021 COMPARISON: NONE HISTORY: 85-year-old male pain, no injury TECHNIQUE: 3 views FINDINGS: Corticated bone fragments below the medial malleolus measuring up to 1.0 cm compatible with sequela of old injury. Ankle mortise is congruent with preservation of the distal tibiofibular overl ap. Some mild soft tissue swelling is noted. Vascular calcifications. Moderate sized plantar heel spu r. No acute fracture, subluxation, dislocation. IMPRESSION: Mild soft tissue swelling about the ankle. Sequela of old injury at the medial malleolus. No acute os seous abnormality seen. Moderate sized plantar heel spur.
[2021-05-31 12:59] LABS: Basophils # (A) 0.1 k/uL (0-0.2); Basophils % (A) 0 %; Eosinophils # (A) 0.2 k/uL (0-0.7); Eosinophils % (A) 1 %; HCT 32.8 % (39.0-53.0); HGB 10.6 gm/dL (13.0-17.5); Lymphocytes # (A) 1.7 k/uL (1.0-4.8); Lymphocytes % (A) 9 %; MCH 29.9 pg (25.0-35.0); MCHC 32.4 g/dL (31.0-37.0); MCV 92.4 fL (80.0-100.0); Monocytes # (A) 1.3 k/uL (0-1.0); Monocytes % (A) 7 %; Neutrophils # (A) 14.2 k/uL (1.3-7.7); Neutrophils % (A) 80 %; Platelet Count 549 k/uL (150-450); RBC 3.55 m/uL (4.30-5.90); RDW 13.4 % (11.5-15.5); WBC 17.8 k/uL (3.8-10.6)
[2021-05-31 13:10] LABS: Calcium 8.9 mg/dL (8.4-10.2); Magnesium 2.1 mg/dL (1.6-2.3); Potassium 4.5 mmol/L (3.5-5.1); Total Bilirubin 0.7 mg/dL (0.2-1.3); Total Protein 6.2 g/dL (6.3-8.2)
[2021-05-31 13:13] LABS: Partial Thromboplastin Time 24.3 sec (22.0-30.0); Prothrombin Time 10.5 sec (9.0-12.0)
--- NOTE | 2021-05-31 13:36 | US ---
EXAMINATION TYPE: US venous doppler duplex LE LT DATE OF EXAM: 05/31/2021 12:24 PM COMPARISON: NONE CLINICAL HISTORY: 85-year-old male swelling. Red moses on inside of left foot, no injury, no history of DVT. SIDE PERFORMED: Left TECHNIQUE: The lower extremity deep venous system is examined utilizing real time linear array sonog sienna with graded compression, doppler sonography and color-flow sonography. FINDINGS: VESSELS IMAGED: Common Femoral Vein Deep Femoral Vein Greater Saphenous Vein * Femoral Vein Popliteal Vein Small Saphenous Vein * Proximal Calf Veins (* superficial vessels) Left Leg: Negative for DVT IMPRESSION: No evidence for DVT within the left lower extremity imaged from the groin to the upper calf.
--- NOTE | 2021-05-31 13:39 | ED ---
General Adult HPI - General Chief complaint: Extremity Problem,Nontraumatic Stated complaint: L foot injury Time Seen by Provider: 05/31/21 12:08 Source: patient, family, RN notes reviewed Mode of arrival: wheelchair Limitations: no limitations - History of Present Illness Initial comments: Patient is an 85-year-old male that presents to the emergency department complaining of left ankle pain. He also notes that this morning in the chest discomfort. patient did have a myocardial infarction greater than 5 years ago. patient notes that the pain while resting or sitting is 0 out of 10 but if he tries to walk on it increases to an 8-9 out of 10. he denied taking any medication this time. he was recently discharged from the hospital for urinary tract infection. he was otherwise well-appearing in no apparent distress or pain. he denied any injury or trauma to his left ankle. he denied chest pain shortness of breath headache nausea vomiting diarrhea constipation fever fatigue chills. - Related Data Home Medications Medication Instructions Recorded Confirmed Aspirin EC [Ecotrin Low Dose] 81 mg PO DAILY 05/16/21 05/31/21 Donepezil [Aricept] 5 mg PO BID 05/16/21 05/31/21 Fluticasone Propion/Salmeterol 1 puff INHALATION RT-DAILY 05/16/21 05/31/21 [Wixela 250-50 Inhub] Memantine [Namenda] 10 mg PO BID 05/16/21 05/31/21 Montelukast [Singulair] 10 mg PO DAILY 05/16/21 05/31/21 Nitroglycerin Sl Tabs [Nitrostat] 0.4 mg SUBLINGUAL Q5M PRN 05/16/21 05/31/21 Simvastatin [Zocor] 40 mg PO HS 05/16/21 05/31/21 Vit C/E/Zn/Coppr/Lutein/Zeaxan 1 cap PO BID 05/16/21 05/31/21 [Preservision Areds 2 Softgel] Zolpidem [Ambien] 5 mg PO HS PRN 05/16/21 05/31/21 Previous Rx's Medication Instructions Recorded Amoxic-Pot Clav 875-125Mg 1 tab PO BID 7 Days #14 tab 05/23/21 [Augmentin 875-125] Cyanocobalamin [Vitamin B-12] 1,000 mcg PO DAILY #30 tab 05/23/21 Fluconazole [Diflucan] 100 mg PO DAILY@1400 #7 tab 05/23/21 Folic Acid 1 mg PO DAILY #30 tab 05/23/21 Allergies Allergy/AdvReac Type Severity Reaction Status Date / Time No Known Allergies Allergy Verified 05/31/21 13:21 Review of Systems ROS Statement: Those systems with pertinent positive or pertinent negative responses have been documented in the HPI. ROS Other: All systems not noted in ROS Statement are negative. Past Medical History Past Medical History: Asthma, Hyperlipidemia, Hypertension, Myocardial Infarction ([place]) Last Myocardial Infarction Date:: 1999 History of Any Multi-Drug Resistant Organisms: None Reported Past Surgical History: Heart Catheterization With Stent, Joint Replacement Additional Past Surgical History / Comment(s): knee replacement, left wrist surgery 2019 Date of Last Stent Placement:: 1999 Past Psychological History: No Psychological Hx Reported Smoking Status: Former smoker Past Alcohol Use History: Occasional Past Drug Use History: None Reported - Past Family History Father Family Medical History: Memory Impairment Mother Additional Family Medical History / Comment(s): Kidney cancer - at age 36 General Exam Limitations: no limitations General appearance: alert, in no apparent distress Head exam: Present: atraumatic, normocephalic, normal inspection Eye exam: Present: normal appearance, PERRL, EOMI. Absent: scleral icterus, conjunctival injection, periorbital swelling ENT exam: Present: normal exam, mucous membranes moist Neck exam: Present: normal inspection Respiratory exam: Present: normal lung sounds bilaterally. Absent: respiratory distress, wheezes, rales, rhonchi, stridor Cardiovascular Exam: Present: regular rate, normal rhythm, normal heart sounds. Absent: systolic murmur, diastolic murmur, rubs, gallop, clicks Extremities exam: Present: normal inspection, full ROM, tenderness (The medial malleoli of the left ankle, minimal erythema.), normal capillary refill. Absent: pedal edema, joint swelling, calf tenderness Neurological exam: Present: alert, oriented X3 Psychiatric exam: Present: normal affect, normal mood Skin exam: Present: warm, dry, intact, normal color. Absent: rash Course Vital Signs 05/31/21 11:04 Temperature 99.4 F Pulse Rate 86 Respiratory 20 Rate Blood Pressure 120/69 O2 Sat by Pulse 99 Oximetry EKG Findings - EKG Comments: EKG Findings:: Ventricular rate 62 bpm, VT interval 248 ms, QRS duration 92 ms, QTC 464 ms, PRT axis 82/25/27. Sinus rhythm with marked sinus arrhythmia with first-degree AV block with fusion complexes, otherwise normal ECG. Medical Decision Making - Medical Decision Making 85-year-old male complaining of left ankle pain and 1 episode of chest discomfort this morning. Labs, EKG, playground monitor, x-ray left ankle, ultrasound of the left lower extremity ordered. Labs unremarkable from baseline. EKG within normal limits. X-ray shows mild soft tissue swelling to the medial aspect of left ankle with a possible flareup of an old injury. Ultrasound negative for DVT. Patient most likely has reaggravated a left ankle injury, sprain. Case discussed with Dr. Wells, patient discharge home. - Lab Data Result diagrams: 05/31/21 12:47 05/31/21 12:47 Lab Results 05/31/21 05/31/21 05/31/21 Range/Units 12:47 12:47 12:47 WBC 17.8 H (3.8-10.6) k/uL RBC 3.55 L (4.30-5.90) m/uL Hgb 10.6 L (13.0-17.5) gm/dL Hct 32.8 L (39.0-53.0) % MCV 92.4 (80.0-100.0) fL MCH 29.9 (25.0-35.0) pg MCHC 32.4 (31.0-37.0) g/dL RDW 13.4 (11.5-15.5) % Plt Count 549 H (150-450) k/uL MPV 8.0 Neutrophils % 80 % Lymphocytes % 9 % Monocytes % 7 % Eosinophils % 1 % Basophils % 0 % Neutrophils # 14.2 H (1.3-7.7) k/uL Lymphocytes # 1.7 (1.0-4.8) k/uL Monocytes # 1.3 H (0-1.0) k/uL Eosinophils # 0.2 (0-0.7) k/uL Basophils # 0.1 (0-0.2) k/uL PT 10.5 (9.0-12.0) sec INR 1.0 (<1.2) APTT 24.3 (22.0-30.0) sec Sodium 136 L (137-145) mmol/L Potassium 4.5 (3.5-5.1) mmol/L Chloride 102 (98-107) mmol/L Carbon Dioxide 26 (22-30) mmol/L Anion Gap 8 mmol/L BUN 17 (9-20) mg/dL Creatinine 1.01 (0.66-1.25) mg/dL Est GFR (CKD-EPI)AfAm 79 (>60 ml/min/1.73 sqM) Est GFR (CKD-EPI)NonAf 69 (>60 ml/min/1.73 sqM) Glucose 124 H (74-99) mg/dL Calcium 8.9 (8.4-10.2) mg/dL Magnesium 2.1 (1.6-2.3) mg/dL Total Bilirubin 0.7 (0.2-1.3) mg/dL AST 66 H (17-59) U/L ALT 70 H (4-49) U/L Alkaline Phosphatase 148 H (38-126) U/L Troponin I (0.000-0.034) ng/mL Total Protein 6.2 L (6.3-8.2) g/dL Albumin 3.0 L (3.5-5.0) g/dL 05/31/ Range/Units 12:47 WBC (3.8-10.6) k/uL RBC (4.30-5.90) m/uL Hgb (13.0-17.5) gm/dL Hct (39.0-53.0) % MCV (80.0-100.0) fL MCH (25.0-35.0) pg MCHC (31.0-37.0) g/dL RDW (11.5-15.5) % Plt Count (150-450) k/uL MPV Neutrophils % % Lymphocytes % % Monocytes % % Eosinophils % % Basophils % % Neutrophils # (1.3-7.7) k/uL Lymphocytes # (1.0-4.8) k/uL Monocytes # (0-1.0) k/uL Eosinophils # (0-0.7) k/uL Basophils # (0-0.2) k/uL PT (9.0-12.0) sec INR (<1.2) APTT (22.0-30.0) sec Sodium (137-145) mmol/L Potassium (3.5-5.1) mmol/L Chloride (98-107) mmol/L Carbon Dioxide (22-30) mmol/L Anion Gap mmol/L BUN (9-20) mg/dL Creatinine (0.66-1.25) mg/dL Est GFR (CKD-EPI)AfAm (>60 ml/min/1.73 sqM) Est GFR (CKD-EPI)NonAf (>60 ml/min/1.73 sqM) Glucose (74-99) mg/dL Calcium (8.4-10.2) mg/dL Magnesium (1.6-2.3) mg/dL Total Bilirubin (0.2-1.3) mg/dL AST (17-59) U/L ALT (4-49) U/L Alkaline Phosphatase (38-126) U/L Troponin I 0.019 (0.000-0.034) ng/mL Total Protein (6.3-8.2) g/dL Albumin (3.5-5.0) g/dL - EKG Data -: EKG Interpreted by Or EKG shows normal: sinus rhythm Rate: normal EKG Comments: Ventricular rate 62 bpm, VT interval 248 ms, QRS duration 92 ms, QTC 464 ms, PRT axis 82/25/27. Sinus rhythm with marked sinus arrhythmia with first- degree AV block with fusion complexes, otherwise normal ECG. - Radiology Data Radiology results: report reviewed, image reviewed X-ray left ankle: Mild soft tissue swelling about the ankle sequela of old injury at the medial malleolus. No acute osseous abdomen that he seen. Moderate-sized plantar heel spur. Ultrasound: Negative for DVT of left lower extremity. Disposition Clinical Impression: Left ankle sprain Disposition: HOME SELF-CARE Condition: Stable Instructions (If sedation given, give patient instructions): Ankle Sprain (ED) Additional Instructions: Please return to the Emergency Department if symptoms worsen or any other concerns. Follow-up with primary care 1-2 days. Use as tolerated. Rest ice compress elevate. Take Tylenol and Motrin alternating every 3 hours as needed for pain. Is patient prescribed a controlled substance at d/c from ED?: No Referrals: Gisselle Grimm DO [Primary Care Provider] - 1-2 days Time of Disposition: 14:25
[2021-05-31 14:35] VITALS: BP 132/78; PULSE 88; RESP 18
== END 2021-05-31 14:34 | disposition home or self-care (01) ==
LOC: EC 10:29
DX: S93.402A Sprain of unspecified ligament of left ankle, initial encounter (principal); E78.5 Hyperlipidemia, unspecified; I10 Essential (primary) hypertension; I25.2 Old myocardial infarction; Z72.89 Other problems related to lifestyle; Z87.891 Personal history of nicotine dependence; Z79.82 Long term (current) use of aspirin; Z79.899 Other long term (current) drug therapy
CPT/HCPCS: 36415; 80053; 83735; 84484; 85025; 85610; 85730; 93005; 99285

== ENCOUNTER 2021-09-12 18:59 | Inpatient (IN) | payer MEDICARE ==
[2021-09-12 21:21] LABS: Basophils # (A) 0.1 k/uL (0-0.2); Basophils % (A) 1 %; Eosinophils # (A) 0.4 k/uL (0-0.7); Eosinophils % (A) 4 %; HCT 40.1 % (39.0-53.0); Lymphocytes # (A) 2.4 k/uL (1.0-4.8); Lymphocytes % (A) 24 %; MCH 29.4 pg (25.0-35.0); MCHC 32.4 g/dL (31.0-37.0); MCV 90.7 fL (80.0-100.0); Mean Platelet Volume 8.3; Monocytes # (A) 0.9 k/uL (0-1.0); Monocytes % (A) 9 %; Neutrophils % (A) 60 %; Platelet Count 281 k/uL (150-450); RBC 4.42 m/uL (4.30-5.90); RDW 14.9 % (11.5-15.5); WBC 9.9 k/uL (3.8-10.6)
[2021-09-12 21:30] LABS: Albumin 4.1 g/dL (3.5-5.0); Calcium 8.9 mg/dL (8.4-10.2); Total Bilirubin 0.7 mg/dL (0.2-1.3); Total Protein 7.2 g/dL (6.3-8.2)
[2021-09-12 21:42] LABS: INR 0.9 (<1.2); Partial Thromboplastin Time 26.1 sec (22.0-30.0); Prothrombin Time 10.4 sec (9.0-12.0)
--- NOTE | 2021-09-12 21:54 | XR ---
EXAMINATION TYPE: XR chest 2V DATE OF EXAM: 09/12/2021 COMPARISON: 05/16/2021 HISTORY: 05/16/2021 TECHNIQUE: 2 views FINDINGS: There is no heart failure nor confluent pneumonic infiltrate. Costophrenic angles are clear . There are chest leads. Bony thorax is intact. IMPRESSION: No active cardiopulmonary disease. No change.
--- NOTE | 2021-09-12 22:26 | CT ---
EXAMINATION TYPE: CT brain wo con for TPA DATE OF EXAM: 09/12/2021 COMPARISON: None HISTORY: blurred vision CT DLP: 1814.7 mGycm Automated exposure control for dose reduction was used. There is some cerebral cortical atrophy. There is mild enlargement of the ventricles. There is minima l hypodensity in the periventricular white matter. There is no mass effect or midline shift. There is no sign of intracranial hemorrhage. Calvarium is intact. There is normal aeration of the mastoid sin uses. IMPRESSION: Cerebral atrophy. No acute intracranial abnormality.
--- NOTE | 2021-09-12 22:45 | CT ---
EXAMINATION TYPE: CODE STROKE: CTA head neck DATE OF EXAM: 09/12/2021 COMPARISON: None HISTORY: blurred vision CT DLP: 1824.7 mGycm Automated exposure control for dose reduction was used. CONTRAST: Performed with IV Contrast, patient injected with 65 mL of Isovue 370. Images obtained from the aortic arch to the vertex of the brain with IV contrast. There are Three-D p ostprocessed images. There is normal branching pattern of the great vessels of the aortic arch. There is arterial flow in both subclavian arteries. There is arterial flow in the common internal and external carotid arteries bilaterally. There is minimal plaque formation at the carotid artery bifurcations. There is less moshe n 15% stenosis at the origins of the internal carotid arteries. There is arterial flow in both verteb ral arteries. There is no evidence of carotid or vertebral artery aneurysm or dissection. There is no mass effect. There is arterial flow in the vertebral basilar artery system. There is moderate plaque and calcification with stenosis of the distal vertebral arteries bilaterally. Stenosis is estimated more than 60%. There is arterial flow in the anterior middle and posterior cerebral arteries. There is no mass effec t. There is no evidence of intracranial aneurysm or neovascularity. There is normal enhancement of th e venous sinuses. No evidence of intracranial hemodynamic arterial stenosis. IMPRESSION: Minimal plaque at the carotid artery bifurcations without evidence of any significant stenosis. 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 No evide nce of occlusion of the left posterior cerebral artery in this patient with right eye blindness.
--- NOTE | 2021-09-12 22:47 | ED ---
General Adult HPI - General Chief complaint: Eye Problems Stated complaint: Blurred Rt Eye Time Seen by Provider: 09/12/21 20:08 Source: patient, family Mode of arrival: ambulatory Limitations: no limitations - History of Present Illness Initial comments: Venkata is an 85 yo gentleman who presents to the emergency department today via private vehicle for evaluation of vision loss in the right eye. Patient reports he's had blurry vision progressively worsening for what he refers to as a while. Him and his and asked to consult sister iron assorter and navi Khoury and are scheduled to be seen next week. Patient reports that his vision was somewhat worse when he woke up this morning, states that between 10 and 11 AM they were driving and he told her that his vision was worse and he thought she should drive which is atypical for him. Around 3:30 PM he told her at the bottom half of the vision in his right eye was dark. Only his right eye, left eye is normal. He's had some mild discomfort in the eye, which she describes as feeling like dryness.. - Related Data Home Medications Medication Instructions Recorded Confirmed Aspirin EC [Ecotrin Low Dose] 81 mg PO DAILY 05/16/21 09/12/21 Donepezil [Aricept] 10 mg PO DAILY 05/16/21 09/12/21 Memantine [Namenda] 10 mg PO BID 05/16/21 09/12/21 Nitroglycerin Sl Tabs [Nitrostat] 0.4 mg SUBLINGUAL Q5M PRN 05/16/21 09/12/21 Simvastatin [Zocor] 40 mg PO HS 05/16/21 09/12/21 Vit C/E/Zn/Coppr/Lutein/Zeaxan 1 cap PO BID 05/16/21 09/12/21 [Preservision Areds 2 Softgel] Enalapril/Hydrochlorothiazide 1 tab PO DAILY 09/12/21 09/12/21 [Enalapril/Hydrochlorothiazide 10-25 mg Tablet] Allergies Allergy/AdvReac Type Severity Reaction Status Date / Time No Known Allergies Allergy Verified 09/12/21 20:48 Review of Systems ROS Statement: Those systems with pertinent positive or pertinent negative responses have been documented in the HPI. ROS Other: All systems not noted in ROS Statement are negative. Past Medical History Past Medical History: Asthma, Hyperlipidemia, Hypertension, Myocardial Infarction ([place]) Last Myocardial Infarction Date:: 1999 History of Any Multi-Drug Resistant Organisms: None Reported Past Surgical History: Heart Catheterization With Stent, Joint Replacement Additional Past Surgical History / Comment(s): knee replacement, left wrist surgery 2019 Date of Last Stent Placement:: 1999 Past Psychological History: No Psychological Hx Reported Smoking Status: Former smoker Past Alcohol Use History: Occasional Past Drug Use History: None Reported - Past Family History Father Family Medical History: Memory Impairment Mother Additional Family Medical History / Comment(s): Kidney cancer - at age 36 General Exam - General Exam Comments Initial Comments: Physical Exam GENERAL: Patient is well-developed and well-nourished. Patient is nontoxic and well- hydrated and is in no distress. HENT: Normocephalic, Atraumatic. EYES: PERRL, EOMI Pupils are round with no abnormality No conjunctival injection No evidence of trauma to the eye PULMONARY: Unlabored respirations. No audible rales rhonchi or wheezing was noted. CARDIOVASCULAR: There is a regular rate and rhythm without any murmurs gallops or rubs. ABDOMEN: Soft and nontender with normal bowel sounds. SKIN: Skin is clear with no lesions or rashes and otherwise unremarkable. : Deferred NEUROLOGIC: Patient is alert and oriented x3 Moving all extremities spontaneously No facial droop No speech difficulty Decreased vision in right eye, decreased reaction to threat MUSCULOSKELETAL: Normal extremities with adequate strength and full range of motion. No lower extremity swelling or edema. No calf tenderness. PSYCHIATRIC: Normal psychiatric evaluation. Limitations: no limitations Course Vital Signs 09/12/21 09/12/21 19:42 23:00 Temperature 98.1 F Pulse Rate 56 L 53 L Respiratory 20 18 Rate Blood Pressure 170/74 134/62 O2 Sat by Pulse 97 97 Oximetry EKG Findings - EKG Comments: EKG Findings:: EKG was obtained as part of the stroke workup, EKG was obtained at 204 rate is 53 rhythm is bradycardia with first-degree block. DE prolonged at 247, QRS 162 [address]Tc [address] elevations or depressions no evidence of ischemia or infarction. Medical Decision Making - Medical Decision Making Pt seen and evaluated, symptoms >4hrs, possibly days, no indication for code stroke Pt care discussed with Dr Jamil who agrees with pursuing neuro workup, admission and MRI No pain in orthodox, no headache, no evidence of temporal arteritis Labs and imaging unremarkable, ASA given Patient was updated on findings and plan for admission for MRI tomorrow Patient care was discussed with Judy from [facility] hospitalist group who accepts the admission results to neurology and ophthalmology - Lab Data Result diagrams: 09/12/21 20:49 09/12/21 20:49 Lab Results 09/12/21 09/12/21 09/12/21 Range/Units 20:49 20:49 20:49 WBC 9.9 (3.8-10.6) k/uL RBC 4.42 (4.30-5.90) m/uL Hgb 13.0 (13.0-17.5) gm/dL Hct 40.1 (39.0-53.0) % MCV 90.7 (80.0-100.0) fL MCH 29.4 (25.0-35.0) pg MCHC 32.4 (31.0-37.0) g/dL RDW 14.9 (11.5-15.5) % Plt Count 281 (150-450) k/uL MPV 8.3 Neutrophils % 60 % Lymphocytes % 24 % Monocytes % 9 % Eosinophils % 4 % Basophils % 1 % Neutrophils # 6.0 (1.3-7.7) k/uL Lymphocytes # 2.4 (1.0-4.8) k/uL Monocytes # 0.9 (0-1.0) k/uL Eosinophils # 0.4 (0-0.7) k/uL Basophils # 0.1 (0-0.2) k/uL PT 10.4 (9.0-12.0) sec INR 0.9 (<1.2) APTT 26.1 (22.0-30.0) sec Sodium 140 (137-145) mmol/L Potassium 4.0 (3.5-5.1) mmol/L Chloride 102 (98-107) mmol/L Carbon Dioxide 28 (22-30) mmol/L Anion Gap 10 mmol/L BUN 21 H (9-20) mg/dL Creatinine 1.01 (0.66-1.25) mg/dL Est GFR (CKD-EPI)AfAm 79 (>60 ml/min/1.73 sqM) Est GFR (CKD-EPI)NonAf 69 (>60 ml/min/1.73 sqM) Glucose 103 H (74-99) mg/dL Calcium 8.9 (8.4-10.2) mg/dL Total Bilirubin 0.7 (0.2-1.3) mg/dL AST 16 L (17-59) U/L ALT 8 (4-49) U/L Alkaline Phosphatase 99 (38-126) U/L Troponin I (0.000-0.034) ng/mL Total Protein 7.2 (6.3-8.2) g/dL Albumin 4.1 (3.5-5.0) g/dL 09/12/21 Range/Units 20:49 WBC (3.8-10.6) k/uL RBC (4.30-5.90) m/uL Hgb (13.0-17.5) gm/dL Hct (39.0-53.0) % MCV (80.0-100.0) fL MCH (25.0-35.0) pg MCHC (31.0-37.0) g/dL RDW (11.5-15.5) % Plt Count (150-450) k/uL MPV Neutrophils % % Lymphocytes % % Monocytes % % Eosinophils % % Basophils % % Neutrophils # (1.3-7.7) k/uL Lymphocytes # (1.0-4.8) k/uL Monocytes # (0-1.0) k/uL Eosinophils # (0-0.7) k/uL Basophils # (0-0.2) k/uL PT (9.0-12.0) sec INR (<1.2) APTT (22.0-30.0) sec Sodium (137-145) mmol/L Potassium (3.5-5.1) mmol/L Chloride (98-107) mmol/L Carbon Dioxide (22-30) mmol/L Anion Gap mmol/L BUN (9-20) mg/dL Creatinine (0.66-1.25) mg/dL Est GFR (CKD-EPI)AfAm (>60 ml/min/1.73 sqM) Est GFR (CKD-EPI)NonAf (>60 ml/min/1.73 sqM) Glucose (74-99) mg/dL Calcium (8.4-10.2) mg/dL Total Bilirubin (0.2-1.3) mg/dL AST (17-59) U/L ALT (4-49) U/L Alkaline Phosphatase (38-126) U/L Troponin I 0.022 (0.000-0.034) ng/mL Total Protein (6.3-8.2) g/dL Albumin (3.5-5.0) g/dL Disposition Clinical Impression: Vision loss Disposition: ADMITTED IP TO THIS [facility] Condition: Serious Is patient prescribed a controlled substance at d/c from ED?: No Referrals: Gisselle Grimm DO [Primary Care Provider] - 1-2 days
[2021-09-12] MEDS ORDERED: NALOXONE 0.4 MG/ML 1 ML VIAL IV PRN (23:19)
[2021-09-12] MEDS ORDERED: ASPIRIN 81 MG PO STA (23:21)
[2021-09-13] MEDS ORDERED: ATORVASTATIN 80 MG TAB PO STA (11:46)
[2021-09-13] MEDS: ASPIRIN 325 MG TAB PO SCH (12:13)
--- NOTE | 2021-09-13 12:24 | CONS ---
CONSULTATION CHIEF COMPLAINT: Loss of vision in the right eye for the last 4 days. HISTORY OF PRESENT ILLNESS: The patient had cataract surgery 10 years ago, both eyes. Patient states that his vision went bad 4 days ago. No pain. No temporal pain or tenderness. No jaw claudication and no shoulder pain. Medical history reviewed. Patient is hypertensive. EYE EXAMINATION: Vision: Right eye is counting finger 1 foot. Left eye is 20/50 with pinhole. Extraocular motility full. Pupil shows a slight relative afferent pupillary defect, right eye. The lids are normal. No ptosis. The cornea is clear in both eyes. The eye pressure is 22 in the right eye and 15 in the left eye. Retina is flat in both eyes. No vitreous hemorrhage. Implant in both eyes; clear. The right optic disk shows a pale center and swelling temporally. ASSESSMENT: 1. Right ischemic optic neuritis. 2. Increased intraocular pressure, right eye. PLAN: Patient to continue baby aspirin. This is from the hypertension. MRI of the brain and orbits is scheduled. Also sedimentation rate and C-reactive protein were ordered. Advised to control the blood pressure. To see the patient next week in the office. The visual field showed a left nasal defect in the right eye. MMODL / IJN: [id number] /
--- NOTE | 2021-09-13 12:38 | P.CNNES ---
History of Present Illness Consult date: 09/13/21 Requesting physician: Shawna Avina Reason for Consult: possible stroke. Vision loss History of Present Illness: This is an 85-year-old gentleman with history of hypertension, hyperlipidemia, coronary artery disease status post stent who presented to the emergency department on 09/12/2021 for vision loss over the right eye. Patient stated over the past 12 weeks she's been having blurry vision over the right bottom half of the eye and the yesterday and a got worse and a got worse around tenderness a.m. yesterday and he completely could not see over the lower half. He denies of any focal weakness, numbness, visual disturbance, difficulty getting his words out. Patient denies of any headache, nausea vomiting. Patient denies of any history of stroke or TIAs in the past. Denies of any history of diabetes. Denies of any tobacco use or any significant alcohol use or any illicit drug use. Patient is on home medication of aspirin 81 mg, simvastatin 40 mg daily at bedtime, enalapril/hydrochlorothiazide, Aricept 10 mg daily, amantadine, gram one tablet twice a day. Some of the workup in the hospital consisted of: Initial vital signs was blood pressure of 170/74, heart rate of 56, respiratory of 20, temperature of 98.1 Fahrenheit oral pulse ox of 97% room air. Patient systolic blood pressure got as high as 190s over 70s to 80s CT of the head is reported as cerebral atrophy. No acute intracranial abnormality. I personally reviewed the CT of the head there is no acute or subacute ischemia and there is no large parenchymal hemorrhage. I felt all the ventricles seems a little bit more dilated than his generalized atrophy possibly concerning for NPH CT angiography of the head and neck was reported as minimal plaque at the carotid artery bifurcation without evidence of any significant stenosis. 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 No evidence of occlusion of the left posterior cerebral artery in this patient with a right eye blindness CBC with differential is unremarkable Chemistry panel seems unremarkable PT, PTT and INR is within normal limits Review of Systems Review of system: The 12 point system was reviewed and apparent positive and negative per HPI. Past Medical History Past Medical History: Asthma, Dementia, Hyperlipidemia, Hypertension, Myocardial Infarction ([place]) Additional Past Medical History / Comment(s): Poor historian secondary to dementia/memory impairment Last Myocardial Infarction Date:: 1999 History of Any Multi-Drug Resistant Organisms: None Reported Past Surgical History: Heart Catheterization With Stent, Joint Replacement Additional Past Surgical History / Comment(s): knee replacement, left wrist surgery 2019 Past Anesthesia/Blood Transfusion Reactions: No Reported Reaction Date of Last Stent Placement:: 1999 Past Psychological History: No Psychological Hx Reported Additional Psychological History / Comment(s): Memory impairment Smoking Status: Former smoker Past Alcohol Use History: Occasional Past Drug Use History: None Reported - Past Family History Father Family Medical History: Memory Impairment Mother Additional Family Medical History / Comment(s): Kidney cancer - at age 36 Medications and Allergies Home Medications Medication Instructions Recorded Confirmed Type Aspirin EC [Ecotrin Low Dose] 81 mg PO DAILY 05/16/21 09/12/21 History Donepezil [Aricept] 10 mg PO DAILY 05/16/21 09/12/21 History Memantine [Namenda] 10 mg PO BID 05/16/21 09/12/21 History Nitroglycerin Sl Tabs [Nitrostat] 0.4 mg SUBLINGUAL Q5M PRN 05/16/21 09/12/21 History Simvastatin [Zocor] 40 mg PO HS 05/16/21 09/12/21 History Vit C/E/Zn/Coppr/Lutein/Zeaxan 1 cap PO BID 05/16/21 09/12/21 History [Preservision Areds 2 Softgel] Enalapril/Hydrochlorothiazide 1 tab PO DAILY 09/12/21 09/12/21 History [Enalapril/Hydrochlorothiazide 10-25 mg Tablet] Allergies Allergy/AdvReac Type Severity Reaction Status Date / Time No Known Allergies Allergy Verified 09/12/21 20:48 Physical Examination - Vital Signs Vital Signs: Vital Signs Temp Pulse Pulse Resp BP BP Pulse Ox 09/13/21 08:25 100 09/13/21 08:00 98.0 F 56 L 18 176/77 98 09/13/21 04:00 97.6 F 54 L 15 198/76 100 09/13/21 00:01 97.5 F L 56 L 14 199/81 99 09/12/21 23:00 53 L 18 134/62 97 09/12/21 19:42 98.1 F 56 L 20 170/74 97 Intake and Output 09/12/21 09/13/21 09/13/21 22:59 06:59 14:59 Intake Total 120 Balance 120 Intake: Oral 120 Other: # Voids 2 Weight 92.986 kg 93.9 kg GENERAL: The patient is lying in bed and is not in acute distress. CHEST: The heart rate is regular rate rhythm. No murmurs to auscultation. No carotid bruit bilaterally. LUNG: Clear to auscultation bilaterally no wheezing noted throughout. Not labored breathing. ABDOMEN/GI: Bowel sounds present in all 4 quadrants. No tenderness to palpation throughout. NEUROLOGICAL: Higher mental function: The patient is awake, alert, oriented to self, place and time. Patient is following commands. No aphasia and no neglect. Cranial nerves: The pupils are round, equal about 4mm and was just recently dilated by Ophthalmology team (so hard to appreciate reactivity). Visual amos is right lower nasal quradrant defect to confrontation only. Extraocular mo vement is intact no nystagmus is noted. Facial sensation is normal to touch throughout. The facial strength is normal throughout. Hearing is severely decreased bilaterally to hand rub. Tongue is midline and moved [id number] without any difficulty. No dysarthria is noted. Shoulder shrug is normal bilaterally. Motor: Gait is normal with normal arm swings. The strength is 5 over 5 throughout. Normal tone and bulk. Cerebellum: Normal finger to nose heel to schilling bilaterally. Sensation: Sensation is normal to touch throughout. Reflexes (right/left): 1+ uppers, 2+ at bilateral patellar and 1+ ankles. Plantars are mute bilaterally. Results - Laboratory Findings CBC and BMP: 09/12/21 20:49 09/12/21 20:49 Abnormal Lab Findings: Abnormal Labs 09/12/21 20:49 BUN 21 H Glucose 103 H AST 16 L Assessment and Plan Assessment: * Right vision loss (over lower nasal quadrant field defect) having symptoms for past 1-2 weeks but worsened on 09/12/2021. Rule out stroke. NIH 0. No IV tpa since outside window and risk outweigh benefit. It does not appear as as temporal arteritis since the patient does not have any headaches * Uncontrolled hypertension * History of hypertension * History of coronary artery disease status post stent Plan: Aspirin 324 mg once was given in the ED. I start the patient on aspirin 325mg daily (on home dose of ASA 81mg). The patient does have a stroke will put the patient on dual antiplatelet but for now we'll hold. I started the patient on Lipitor 40 mg daily at bedtime and loaded the patient with Lipitor 80 mg once. I ordered MRI of the brain and orbits without ESR and CRP is ordered by ophthalmology team is pending Ordered TSH, vitamin B-12, folate, hemoglobin A1c Placed on Every 4 hours neuro checks Placed on cardiac monitoring Ordered 2-D echo, lipid panel. Consulted PT and OT. Ophthalmology is consulted We'll defer hypertension the management to the primary team. For DVT prophylaxis: Started on subq heparin 5000U every 12 hours. We'll defer the rest of the medical management to the primary team. The plan is discussed with the patient and his nurse. Thank you for the consultation. Oracio Jamil M.D. Neuro-hospitalist Time with Patient: Greater than 30
--- NOTE | 2021-09-13 14:09 | MR ---
EXAMINATION TYPE: MR brain/orbits wo con DATE OF EXAM: 09/13/2021 1:52 PM COMPARISON: NONE HISTORY: Vision loss, evaluate for stroke. Multiplanar MultiSpin echo imaging of the brain and orbits was performed. FINDINGS: The ventricles, basal cisterns and sulci overlying the cerebral convexities are moderately enlarged. There is evidence of mild periventricular white matter ischemic demyelination. Remote deep white matter insults are also noted. No acute edema is seen on diffusion weighted imaging. There is no evidence for midline shift or mass effect. Acute intracranial hemorrhage or extra-axial collection is not evident. The paranasal sinuses and mastoid air cells are well-aerated. Evaluation of the orbits without contrast and reveals the optic nerves to be moderate. The globes are symmetric. No evidence for proptosis. No intra or extraconal mass seen. Extraocular musculature appe ars to be within normal limits. IMPRESSION: Age-related atrophic and chronic small vessel ischemic change. No acute intracranial process at this time.
--- NOTE | 2021-09-13 16:32 | P.HPIM ---
History of Present Illness H&P Date: 09/13/21 Chief Complaint: Vision loss 85 yo gentleman who presents to the emergency department today via private vehicle for evaluation of vision loss in the right eye. Patient reports he's had blurry vision progressively worsening for what he refers to as a while. Him and his and asked to consult sister lpn rn hospice and navi Khoury and are scheduled to be seen next week. Patient reports that his vision was somewhat worse when he woke up this morning, states that between 10 and 11 AM they were driving and he told her that his vision was worse and he thought s he should drive which is atypical for him. Around 3:30 PM he told her at the bottom half of the vision in his right eye was dark. Only his right eye, left eye is normal. He's had some mild discomfort in the eye, which she describes as feeling like dryness. Workup completed in ED; CT of the head is reported as cerebral atrophy. No acute intracranial abnormality. I personally reviewed the CT of the head there is no acute or subacute ischemia and there is no large parenchymal hemorrhage. I felt all the ventricles seems a little bit more dilated than his generalized atrophy possibly concerning for NPH CT angiography of the head and neck was reported as minimal plaque at the carotid artery bifurcation without evidence of any significant stenosis. 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 No evidence of occlusion of the left posterior cerebral artery in this patient with a right eye blindness Review of Systems REVIEW OF SYSTEMS: CONSTITUTIONAL: No fever, no malaise, no fatigue. HEENT: Vision loss. Denied any sore throat. CARDIOVASCULAR: No chest pain, orthopnea, PND, no palpitations, no syncope. PULMONARY: No shortness of breath, no cough, no hemoptysis. GASTROINTESTINAL: No diarrhea, no nausea, no vomiting, no abdominal pain. NEUROLOGICAL: No headaches, no weakness, no numbness. HEMATOLOGICAL: Denies any bleeding or petechiae. GENITOURINARY: Denies any burning micturition, frequency, or urgency. MUSCULOSKELETAL/RHEUMATOLOGICAL: Denies any joint pain, swelling, or any muscle pain. ENDOCRINE: Denies any polyuria or polydipsia. The rest of the 14-point review of systems is negative. Past Medical History Past Medical History: Asthma, Dementia, Hyperlipidemia, Hypertension, Myocardial Infarction ([place]) Additional Past Medical History / Comment(s): Poor historian secondary to dementia/memory impairment Last Myocardial Infarction Date:: 1999 History of Any Multi-Drug Resistant Organisms: None Reported Past Surgical History: Heart Catheterization With Stent, Joint Replacement Additional Past Surgical History / Comment(s): knee replacement, left wrist surgery 2019 Past Anesthesia/Blood Transfusion Reactions: No Reported Reaction Date of Last Stent Placement:: 1999 Past Psychological History: No Psychological Hx Reported Additional Psychological History / Comment(s): Memory impairment Smoking Status: Former smoker Past Alcohol Use History: Occasional Past Drug Use History: None Reported - Past Family History Father Family Medical History: Memory Impairment Mother Additional Family Medical History / Comment(s): Kidney cancer - at age 36 Medications and Allergies Home Medications Medication Instructions Recorded Confirmed Type Aspirin EC [Ecotrin Low Dose] 81 mg PO DAILY 05/16/21 09/12/21 History Donepezil [Aricept] 10 mg PO DAILY 05/16/21 09/12/21 History Memantine [Namenda] 10 mg PO BID 05/16/21 09/12/21 History Nitroglycerin Sl Tabs [Nitrostat] 0.4 mg SUBLINGUAL Q5M PRN 05/16/21 09/12/21 History Simvastatin [Zocor] 40 mg PO HS 05/16/21 09/12/21 History Vit C/E/Zn/Coppr/Lutein/Zeaxan 1 cap PO BID 05/16/21 09/12/21 History [Preservision Areds 2 Softgel] Enalapril/Hydrochlorothiazide 1 tab PO DAILY 09/12/21 09/12/21 History [Enalapril/Hydrochlorothiazide 10-25 mg Tablet] Allergies Allergy/AdvReac Type Severity Reaction Status Date / Time No Known Allergies Allergy Verified 09/12/21 20:48 Physical Exam Vitals: Vital Signs Temp Pulse Pulse Resp BP BP Pulse Ox 09/13/21 08:25 100 09/13/21 08:00 98.0 F 56 L 18 176/77 98 09/13/21 04:00 97.6 F 54 L 15 198/76 100 09/13/21 00:01 97.5 F L 56 L 14 199/81 99 09/12/21 23:00 53 L 18 134/62 97 09/12/21 19:42 98.1 F 56 L 20 170/74 97 Intake and Output 09/12/21 09/13/21 09/13/21 22:59 06:59 14:59 Intake Total 120 Balance 120 Intake: Oral 120 Other: # Voids 2 Weight 92.986 kg 93.9 kg PHYSICAL EXAMINATION: GENERAL: The patient is alert and oriented x3, not in any acute distress. Well developed, well nourished. HEENT: Patient has eye examination completed by ophthalmology team No scleral icterus. No conjunctival pallor. Normocephalic, atraumatic. No pharyngeal erythema. No thyromegaly. CARDIOVASCULAR: S1 and S2 present. No murmurs, rubs, or gallops. PULMONARY: Chest is clear to auscultation, no wheezing or crackles. ABDOMEN: Soft, nontender, nondistended, normoactive bowel sounds. No palpable organomegaly. MUSCULOSKELETAL: No joint swelling or deformity. EXTREMITIES: No cyanosis, clubbing, or pedal edema. NEUROLOGICAL: Gross neurological examination did not reveal any focal deficits. SKIN: No rashes. Results CBC & Chem 7: 09/12/21 20:49 09/12/21 20:49 Labs: Abnormal Lab Results - Last 24 Hours (Table) 09/12/21 Range/Units 20:49 BUN 21 H (9-20) mg/dL Glucose 103 H (74-99) mg/dL AST 16 L (17-59) U/L Thrombosis Risk Factor Assmnt - Choose All That Apply Each Factor Represents 1 point: Obesity (BMI >25) Each Risk Factor Represents 3 Points: Age 75 years or older Other congenital or acquired thrombophilia - If yes, enter type in comment: No Thrombosis Risk Factor Assessment Total Risk Factor Score: 4 Thrombosis Risk Factor Assessment Level: Moderate Risk Assessment and Plan Assessment: 1. Right Vision loss/CVA - Patient felt not to be a candidate of TPA since outside the window; has been evaluated by urology and possibility of temporal arteritis has been ruled out - Patient received aspirin 324 mg in ED and is recommended to continue 325 mg daily; patient has been placed on Lipitor 40 mg by mouth daily at bedtime after being loaded with 18 mg dose 1; final recommendation would be dual antiplatelet therapy once workup is completed - MRI of the brain and orbits has been ordered and pending; patient has been evaluated by ophthalmology team and ESR and CRPs ordered and remains pending; TSH, vitamin B12, folic acid and HbA1c at ordered - Patient will remain on neuro checks every 4 hours per protocol; continue with telemetry monitoring; 2-D echo is ordered - PT/OT consult and evaluation pending 2. Uncontrolled hypertension; patient takes enalapril/hydrochlorothiazide at home, we will hold off on antihypertensive therapy for permissive hypertension; monitor blood pressure closely and will treat if systolic greater than 220 and diastolic blood pressure greater than 110 3. Coronary artery disease; stable; continue with aspirin and Lipitor 4. Dementia; patient is currently on Aricept and Namenda 10 mg twice a day DVT prophylaxis; SCDs/subcu heparin CODE STATUS; full code
[2021-09-13 17:36] LABS: Chol/HDL Ratio 3.92 Ratio; LDL Cholesterol,Calculated 91.9 mg/dL (0.0-131.0)
[2021-09-13] MEDS: HEPARIN SODIUM,PORCINE/PF 5,000 UNIT/0.5 ML SYRINGE SQ SCH (20:26)
[2021-09-13] MEDS: ATORVASTATIN 40 MG TAB PO SCH (20:26)
[2021-09-13] MEDS ORDERED: ATORVASTATIN 80 MG TAB PO SCH (21:00)
[2021-09-13] MEDS ORDERED: MELATONIN 3 MG TABLET PO PRN (23:49)
[2021-09-14] MEDS: ASPIRIN 325 MG TAB PO SCH (08:17)
[2021-09-14] MEDS: HEPARIN SODIUM,PORCINE/PF 5,000 UNIT/0.5 ML SYRINGE SQ SCH ×2 (08:17→22:37)
[2021-09-14 09:25] LABS: Basophils % (A) 0 %; Eosinophils # (A) 0.4 k/uL (0-0.7); Eosinophils % (A) 4 %; HCT 38.4 % (39.0-53.0); HGB 12.6 gm/dL (13.0-17.5); Lymphocytes # (A) 1.9 k/uL (1.0-4.8); Lymphocytes % (A) 21 %; MCH 29.7 pg (25.0-35.0); MCHC 32.9 g/dL (31.0-37.0); MCV 90.2 fL (80.0-100.0); Mean Platelet Volume 9.2; Monocytes # (A) 0.6 k/uL (0-1.0); Monocytes % (A) 6 %; Neutrophils # (A) 5.8 k/uL (1.3-7.7); Neutrophils % (A) 67 %; Platelet Count 273 k/uL (150-450); RBC 4.25 m/uL (4.30-5.90); RDW 14.5 % (11.5-15.5); WBC 8.7 k/uL (3.8-10.6)
[2021-09-14 09:38] LABS: Calcium 8.8 mg/dL (8.4-10.2); Potassium 4.1 mmol/L (3.5-5.1)
--- NOTE | 2021-09-14 12:27 | P.PN ---
Subjective Progress Note Date: 09/14/21 The patient is seen at bedside and feels about the same. He continues to feels he cannot see out of the right bottom half. Otherwise denies of any new neurological problems. Objective - Vital Signs Vital signs: Vital Signs Temp 98.1 F 09/14/21 08:00 Pulse 58 L 09/14/21 08:00 Resp 18 09/14/21 08:00 BP 157/68 09/14/21 08:00 Pulse Ox 97 09/14/21 08:00 Intake & Output 09/13/21 09/14/21 09/14/21 18:59 06:59 18:59 Intake Total 500 220 Balance 500 220 Intake: Oral 500 220 Other: # Voids 3 1 2 - Exam GENERAL: The patient is lying in bed and is not in acute distress. NEUROLOGICAL: Higher mental function: The patient is awake, alert, oriented to self, place and time. Patient is following commands. No aphasia and no neglect. Cranial nerves: The pupils are round, equal about 3mm reactive to light. Visual maos is right lower nasal quradrant defect to confrontation only. Extraocular movement is intact no nystagmus is noted. Facial sensation is normal to touch throughout. The facial strength is normal throughout. Hearing is severely decreased bilaterally to hand rub. Tongue is midline and moved [id number] without any difficulty. No dysarthria is noted. Shoulder shrug is normal bilaterally. Motor: Gait is normal with normal arm swings. The strength is 5 over 5 throughout. Normal tone and bulk. Cerebellum: Normal finger to nose heel to schilling bilaterally. Sensation: Sensation is normal to touch throughout. Reflexes (right/left): 1+ uppers, 2+ at bilateral patellar and 1+ ankles. Plantars are mute bilaterally. WORK-UP: ESR is 23 which is slightly elevated but not remarkable Hemoglobin A1c is 5.9 CRP is 3.0 which is elevated. Lipid panel is a triglyceride of 114, cholesterol is 154, LDLs 91, HDL is 39 Ortega vitamin B-12 is thousand 334 Serum folate is 10.90 TSH is 0.918. MRI of the brain and orbit is related as age-related atrophy and chronic small vessel ischemic change. No acute intracranial process seen at this time. I personally reviewed the MRI of the brain and there is no acute subacute ischemia that's appreciable - Labs CBC & Chem 7: 09/14/21 08:24 09/14/21 08:24 Labs: Abnormal Lab Results - Last 24 Hours (Table) 09/13/21 09/13/21 09/14/21 Range/Units 12:02 12:02 08:24 RBC 4.25 L (4.30-5.90) m/uL Hgb 12.6 L (13.0-17.5) gm/dL Hct 38.4 L (39.0-53.0) % ESR 23 H (0-15) mm/hr Glucose (74-99) mg/dL C-Reactive Protein 3.0 H (<1.0) mg/dL HDL Cholesterol 39.30 L (40.00-60.00) mg/dL Vitamin B12 1334.0 H (200.0-944.0) pg/mL 09/14/21 Range/Units 08:24 RBC (4.30-5.90) m/uL Hgb (13.0-17.5) gm/dL Hct (39.0-53.0) % ESR (0-15) mm/hr Glucose 155 H (74-99) mg/dL C-Reactive Protein (<1.0) mg/dL HDL Cholesterol (40.00-60.00) mg/dL Vitamin B12 (200.0-944.0) pg/mL Assessment and Plan Assessment: * Right vision loss (over lower nasal quadrant field defect) having symptoms for past 1-2 weeks but worsened on 09/12/2021. MRI Brain and orbit is negative for stroke. Unsure if this is due to stroke and is too small and not picked up on MRI or this is not stroke and isolated to eye condition. NIH 0. No IV tpa since outside window and risk outweigh benefit. It does not appear as as temporal arteritis since the patient does not have any headaches and ESR is not significant (ESR is 23) * Uncontrolled hypertension * History of hypertension * History of coronary artery disease status post stent Plan: Resumed the patient on his home ASA 81mg and started Plavix 75mg daily (plavix is new). Patient is to be on dual antiplatelets and after 21 days stop plavix and resume ASA only (unsure if truly stroke and that is why I am not stating this a failure of ASA). Continue Lipitor 40 mg daily at bedtime for secondary stroke prophylaxis. Placed on Every 4 hours neuro checks Placed on cardiac monitoring 2-D echo: Resting bradycardia. Moderate concentric left ventricular hypertrophy. EF is between 40-45%. Left atrial size is normal. Consulted PT and OT. Ophthalmology is consulted We'll defer hypertension the management to the primary team. For DVT prophylaxis: On subq heparin 5000U every 12 hours. We'll defer the rest of the medical management to the primary team. Upon discharge, recommend the patient to follow-up with a neurologist within 1-2 weeks as outpatient as well an Lodging Facilities Manager. The plan is discussed with the patient and his nurse. There is no further neurological work-up. Patient is clear for discharge. Oracio Jamil M.D. Neuro-hospitalist Time with Patient: Less than 30
--- NOTE | 2021-09-14 14:00 | ECHOF ---
Referral Reason:CVA MEASUREMENTS -------- HEIGHT: 172.7 cm WEIGHT: 93.9 kg BP: IVSd: 1.5 cm (0.6 - 1.1) LVIDd: 4.7 cm (3.9 - 5.3) LVPWd: 1.6 cm (0.6 - 1.1) IVSs: 1.6 cm LVIDs: 4.7 cm LVPWs: 1.5 cm Ao Diam: 3.5 cm (2.0 - 3.7) AV Cusp: 2.0 cm (1.5 - 2.6) LA Diam: 3.4 cm (2.7 - 3.8) MV EXCURSION: 19.436 mm (> 18.000) MV EF SLOPE: 68 mm/s (70 - 150) EPSS: 1.4 cm MV E Jerry: 0.56 m/s MV DecT: 193 ms MV A Jerry: 0.88 m/s MV E/A Ratio: 0.64 AR PHT: 959 ms FINDINGS -------- Resting bradycardia (HR<60bpm). This was a technically difficult study with suboptimal views. The left ventricular size is normal. There is moderate concentric left ventricular hypertrophy. O verall left ventricular systolic function is mild-moderately impaired with, an EF between 40 - 45 %. The right ventricle is normal in size. The left atrial size is normal. The right atrial size is normal. xx ml of Lumason was utilized for enhancement of images. Aortic valve is trileaflet and is mildly thickened. There is mild aortic regurgitation. The mitral valve is normal. There is trace mitral regurgitation. The tricuspid valve appears structurally normal. Trace tricuspid regurgitation present. Right cleve tricular systolic pressure is normal at < 35 mmHg. There is no pulmonic regurgitation present. The aortic root size is normal. IVC Not well visulized. There is no pericardial effusion. CONCLUSIONS -------- 1. The left ventricular size is normal. 2. There is moderate concentric left ventricular hypertrophy. 3. Overall left ventricular systolic function is mild-moderately impaired with, an EF between 40 - 45 %. 4. Aortic valve is trileaflet and is mildly thickened. 5. There is mild aortic regurgitation. 6. There is trace mitral regurgitation. 7. Trace tricuspid regurgitation present. 8. There is no pericardial effusion. WREATH MACHINE OPERATOR: Luh Melendrez RDCS
[2021-09-14] MEDS: ATORVASTATIN 40 MG TAB PO SCH (22:37)
--- NOTE | 2021-09-15 00:01 | P.PN ---
Subjective Progress Note Date: 09/14/21 Principal diagnosis: Right vision loss/CVA Uncontrolled HTN 85 yo gentleman who presents to the emergency department today via private vehicle for evaluation of vision loss in the right eye. Patient reports he's had blurry vision progressively worsening for what he refers to as a while. Him and his and asked to consult sister silver chaser and navi Khoury and are scheduled to be seen next week. Patient reports that his vision was some what worse when he woke up this morning, states that between 10 and 11 AM they were driving and he told her that his vision was worse and he thought she should drive which is atypical for him. Around 3:30 PM he told her at the bottom half of the vision in his right eye was dark. Only his right eye, left eye is normal. He's had some mild discomfort in the eye, which she describes as feeling like dryness. Workup completed in ED; CT of the head is reported as cerebral atrophy. No acute intracranial abnormality. I personally reviewed the CT of the head there is no acute or subacute ischemia and there is no large parenchymal hemorrhage. I felt all the ventricles seems a little bit more dilated than his generalized atrophy possibly concerning for NPH CT angiography of the head and neck was reported as minimal plaque at the carotid artery bifurcation without evidence of any significant stenosis. There is some stenosis of the distal vertebral arteries bilaterally estimated more moshe n 60%. No evidence of occlusion of the left posterior cerebral artery in this patient with a right eye blindness 09/14/21 Patient seen and evaluated; discussed with neurology Vital signs remain stable Patient evaluated by ophthalmology and diagnosed with right ischemic optic neuritis; patient will continue with aspirin MRI of the brain and orbit is completed Patient will follow up with ophthalmology next week as outpatient Improved bP control is recommended Patient is to continue aspirin and plavix for 21 days; after which plavix is to be discontinued Continue lipitor Patietn is to be discharged once echo is completed and stable in next 24 hours Objective - Vital Signs Vital signs: Vital Signs Temp 98.0 F 09/14/21 12:00 Pulse 57 L 09/14/21 12:00 Resp 18 09/14/21 12:00 BP 174/85 09/14/21 12:00 Pulse Ox 97 09/14/21 12:00 Intake & Output 09/13/21 09/14/21 09/14/21 18:59 06:59 18:59 Intake Total 500 220 Balance 500 220 Intake: Oral 500 220 Other: # Voids 3 1 2 - Exam GENERAL: The patient is alert and oriented x3, not in any acute distress. Well developed, well nourished. HEENT: Patient has eye examination completed by ophthalmology team No scleral icterus. No conjunctival pallor. Normocephalic, atraumatic. No pharyngeal erythema. No thyromegaly. CARDIOVASCULAR: S1 and S2 present. No murmurs, rubs, or gallops. PULMONARY: Chest is clear to auscultation, no wheezing or crackles. ABDOMEN: Soft, nontender, nondistended, normoactive bowel sounds. No palpable organomegaly. MUSCULOSKELETAL: No joint swelling or deformity. EXTREMITIES: No cyanosis, clubbing, or pedal edema. NEUROLOGICAL: Gross neurological examination did not reveal any focal deficits. SKIN: No rashes. - Labs CBC & Chem 7: 09/14/21 08:24 09/14/21 08:24 Labs: Abnormal Lab Results - Last 24 Hours (Table) 09/13/21 09/13/21 09/14/21 Range/Units 12:02 12:02 08:24 RBC 4.25 L (4.30-5.90) m/uL Hgb 12.6 L (13.0-17.5) gm/dL Hct 38.4 L (39.0-53.0) % ESR 23 H (0-15) mm/hr Glucose (74-99) mg/dL HDL Cholesterol 39.30 L (40.00-60.00) mg/dL Vitamin B12 1334.0 H (200.0-944.0) pg/mL 09/14/21 Range/Units 08:24 RBC (4.30-5.90) m/uL Hgb (13.0-17.5) gm/dL Hct (39.0-53.0) % ESR (0-15) mm/hr Glucose 155 H (74-99) mg/dL HDL Cholesterol (40.00-60.00) mg/dL Vitamin B12 (200.0-944.0) pg/mL Assessment and Plan Assessment: 1. Right Vision loss/CVA - Patient felt not to be a candidate of TPA since outside the window; has been evaluated by urology and possibility of temporal arteritis has been ruled out - Patient received aspirin 324 mg in ED and is recommended to continue 325 mg daily; patient has been placed on Lipitor 40 mg by mouth daily at bedtime after being loaded with 18 mg dose 1; final recommendation would be dual antiplatelet therapy once workup is completed - MRI of the brain and orbits has been ordered and pending; patient has been evaluated by ophthalmology team and ESR and CRPs ordered and remains pending; TSH, vitamin B12, folic acid and HbA1c at ordered - Patient will remain on neuro checks every 4 hours per protocol; continue with telemetry monitoring; 2-D echo is ordered - PT/OT consult and evaluation pending 2. Uncontrolled hypertension; patient takes enalapril/hydrochlorothiazide at home, we will hold off on antihypertensive therapy for permissive hypertension; monitor blood pressure closely and will treat if systolic greater than 220 and diastolic blood pressure greater than 110 3. Coronary artery disease; stable; continue with aspirin and Lipitor 4. Dementia; patient is currently on Aricept and Namenda 10 mg twice a day DVT prophylaxis; SCDs/subcu heparin CODE STATUS; full code
[2021-09-15] MEDS: HEPARIN SODIUM,PORCINE/PF 5,000 UNIT/0.5 ML SYRINGE SQ SCH (08:38)
[2021-09-15] MEDS ORDERED: CLOPIDOGREL 75 MG TAB PO SCH (09:00)
[2021-09-15] MEDS ORDERED: ASPIRIN 81 MG PO SCH (09:00)
[2021-09-15 11:19] VITALS: BP 162/84; PULSE 53; RESP 18; TEMP 97.7
[2021-09-15] MEDS ORDERED: amLODIPine 5 MG TAB PO SCH (12:45)
[2021-09-15] MEDS ORDERED: hydroCHLOROthiazide 25 MG TAB PO SCH (12:45)
[2021-09-15] MEDS ORDERED: lisinopriL 5 MG TAB PO SCH (12:45)
--- NOTE | 2021-09-16 02:03 | P.DS ---
Providers Date of admission: 09/12/21 23:19 Attending physician: Angeles Asif Consults: 09/12/21 23:19 Consult Physician Stat Consulting Provider: Oracio Jamil Consult Reason/Comments: possible stroke - vision loss Do you want consulting provider notified?: Already Contacted 09/12/21 23:20 Consult Physician Urgent Consulting Provider: Cindy Mina Consult Reason/Comments: Right hemianopia Do you want consulting provider notified?: Yes, Notify in am Primary care physician: Gisselle Grimm Hospital Course: Diagnoses: Right vision defect mainly in the right lower nasal quadrant, evaluated by oph thalmologist and the neurologist and cleared for discharge Hypertension History of coronary artery disease Dementia Hospital course: 85 yo gentleman who presents to the emergency department today via private vehicle for evaluation of partial vision loss in the right eye. Patient presents because of right lower nasal quadrant vision loss which is been stable with no recent worsening the last few days since admission. He denies any other symptoms, no headache or weakness or numbness. No chest pain or dyspnea. No abdominal pain or vomiting or diarrhea. No urinary complaints. No fever. Patient was been evaluated by customer experience analyst and neurologist. Suspicion of stroke is low but not completely excluded. The patient is instructed to continue with aspirin 81 mg and divided 3 weeks only of Plavix 75 mg daily and then stop Plavix and continue with aspirin, patient informed and he agrees. Also Dr. White evaluated the patient and recommended ESR and CRP which are minimal and not elevated. The patient denies temporal pain/headache, no shoulder pain, no jaw claudication. I discussed the case with Dr. White today 1:2 through his office and he can be cleared the patient for discharge and he was to see the patient in 1 week so appointment was made for patient on 09/22 and he agrees to follow-up. Other than that patient denies any other symptoms and he was eager to go home today. Problems and management plan were discussed with the patient and he verbalized understanding and acceptance Patient was found stable and can be discharged home however he needs follow-up as an outpatient. Patient was instructed to follow up with PCP Dr. Grimm within one week and patient agrees Patient was instructed to follow up with Dr. White on 09/22 and he agrees. Patient was instructed to follow up with his neurologist Dr. Mckeon and he agrees to call and make appointment in one week Physical exam Gen: patient is a AAOx3, no distress CVS: S1-S2, RRR, no murmur Lungs: B/L CTA, no wheezing Abdomen: soft, no distention, no tenderness, positive bowel sounds Extremity: no leg edema or induration Time spent more than 35 minutes Patient Condition at Discharge: Serious Plan - Discharge Summary Discharge Rx Participant: No New Discharge Prescriptions: New Clopidogrel [Plavix] 75 mg PO DAILY 21 Days #21 tab Continue Nitroglycerin Sl Tabs [Nitrostat] 0.4 mg SUBLINGUAL Q5M PRN PRN Reason: Chest Pain Vit C/E/Zn/Coppr/Lutein/Zeaxan [Preservision Areds 2 Softgel] 1 cap PO BID Aspirin EC [Ecotrin Low Dose] 81 mg PO DAILY #30 tab Simvastatin [Zocor] 40 mg PO HS Memantine [Namenda] 10 mg PO BID Donepezil [Aricept] 10 mg PO DAILY Enalapril/Hydrochlorothiazide [Enalapril/Hydrochlorothiazide 10-25 mg Tablet] 1 tab PO DAILY Discharge Medication List Donepezil [Aricept] 10 mg PO DAILY 05/16/21 [History] Memantine [Namenda] 10 mg PO BID 05/16/21 [History] Nitroglycerin Sl Tabs [Nitrostat] 0.4 mg SUBLINGUAL Q5M PRN 05/16/21 [History] Simvastatin [Zocor] 40 mg PO HS 05/16/21 [History] Vit C/E/Zn/Coppr/Lutein/Zeaxan [Preservision Areds 2 Softgel] 1 cap PO BID 05/16/21 [History] Enalapril/Hydrochlorothiazide [Enalapril/Hydrochlorothiazide 10-25 mg Tablet] 1 tab PO DAILY 09/12/21 [History] Aspirin EC [Ecotrin Low Dose] 81 mg PO DAILY #30 tab 09/15/21 [Rx] Clopidogrel [Plavix] 75 mg PO DAILY 21 Days #21 tab 09/15/21 [Rx] Follow up Appointment(s)/Referral(s): Pan Mckeon MD [REFERRING] - 1 Week (nerve doctor, neurologist office will call you to make follow up appointment ) Cindy Mina MD [STAFF PHYSICIAN] - 03/14/22 9:20 am () Gisselle Grimm DO [Primary Care Provider] - 09/18/21 11:40 am Patient Instructions/Handouts: Heart Healthy Diet (DC) Activity/Diet/Wound Care/Special Instructions: resume your previous diet ,heart healthy diet activity is restricted till you see your doctor Discharge Disposition: HOME SELF-CARE
--- NOTE | 2021-09-17 10:45 | CDI ---
Documentation Clarification Form Date: 09/17/2021 10:37:05 AM From: Kirby Pierce Admit Date: 09/12/2021 11:19:00 PM Patient Name: Venkata Chaves Visit Number: [id number] Discharge Date: 09/15/2021 03:22:00 PM ATTENTION: The Clinical Documentation Specialists (CDI) and [facility] Coding Staff appreciate your assistance in clarifying documentation. Please respond to the clarification below the line at the bottom and electronically sign. The CDI & [facility] Coding staff will review the response and follow-up if needed. Please note: Queries are made part of the Legal Health Record. If you have any questions, please contact the author of this message via ITS. Dr. Mendosa E Sheet Possible CVA is documented in the discharge summary which may lack sufficient clinical evidence/support in the medical record. Additional clarification is requested. Discharge summary states suspicion for CVA low but not completely excluded. History/Risk Factors: sudden R eye vision loss Clinical Indicators: MRI negative Treatment: platelet inhibitor initiated Please clarify if CVA is a valid diagnosis? [ ] Yes, CVA is present as evidence by (additional clinical support): [ ] No, CVA is ruled out [ ] Other (please specify diagnosis) [ ] Unable to determine MRI Brain and orbit is negative for stroke. However still small acute stroke is suspected by neurologist that did not package pick up by MRI of the brain. JESSE
== END 2021-09-15 15:22 | disposition home or self-care (01) | DRG 65 ==
LOC: EC 18:59 → 3SCARD 23:19
PROVIDERS: ADMIT Hospitalist; ATTEND Hospitalist
DX: I63.9 Cerebral infarction, unspecified (principal); H46.9 Unspecified optic neuritis; H54.61 Unqualified visual loss, right eye, normal vision left eye; E78.5 Hyperlipidemia, unspecified; F03.90 Unspecified dementia, unspecified severity, without behavioral disturbance, psychotic disturbance, mood disturbance, and anxiety; H40.051 Ocular hypertension, right eye; I10 Essential (primary) hypertension; I25.10 Atherosclerotic heart disease of native coronary artery without angina pectoris; I25.2 Old myocardial infarction; J45.909 Unspecified asthma, uncomplicated; Z79.82 Long term (current) use of aspirin; Z79.899 Other long term (current) drug therapy; Z80.51 Family history of malignant neoplasm of kidney; Z87.891 Personal history of nicotine dependence; Z95.5 Presence of coronary angioplasty implant and graft; Z96.659 Presence of unspecified artificial knee joint; H53.461 Homonymous bilateral field defects, right side
CPT/HCPCS: 36415; 70450; 70496; 70498; 70540; 70551; 71046; 80048; 80053; 80061; 82607; 82746; 83036; 84443; 84484; 85025; 85610; 85652; 85730; 86140; 93005; 93306; 99285

== ENCOUNTER → 2024-12-19 | Outpatient (CLI) | payer MEDICARE ==
--- NOTE | 2024-12-19 13:21 | US ---
EXAMINATION TYPE: US kidneys/renal and bladder DATE OF EXAM: 12/19/2024 COMPARISON: NONE CLINICAL INDICATION: Male, 89 years old with history of R94.4 ABNORMAL RESULTS OF KIDNEY FUNCTION FERNANDO DIES; abnormal kidney function test. TECHNIQUE: Grayscale imaging of the bilateral kidneys and urinary bladder: FINDINGS: EXAM MEASUREMENTS: Right Kidney: 11.1 x 4.4 x 4.3 cm Left Kidney: 10.8 x 5.0 x 4.0 cm Right Kidney: No hydronephrosis or masses seen Left Kidney: No hydronephrosis or masses seen Bladder: wnl Bilateral Jets seen: Yes There is no evidence for hydronephrosis at this point in time. No nephrolithiasis is seen. No jai s are identified. The urinary bladder is anechoic. IMPRESSION: 1. Normal renal ultrasound [facility], , 12/19/2024 1:19 PM
== END | disposition home or self-care (01) ==
LOC: RADUSWWP 10:17
PROVIDERS: ATTEND Family Medicine
DX: R94.4 Abnormal results of kidney function studies (principal)
CPT/HCPCS: 76770